=== PATIENT | female | born 1970 | race Caucasian/White ===

== ENCOUNTER 2019-09-13 10:34 | Emergency (ER) | payer BC ==
[2019-09-13] MEDS ORDERED: FLEET ENEMA ADULT PR ONE (11:24)
[2019-09-13] MEDS ORDERED: MAGNESIUM CITRATE 300 ML BOT ONE (11:24)
[2019-09-13] MEDS ORDERED: NA CHLORIDE 0.9% 1,000 ML ONE (11:59)
[2019-09-13] MEDS ORDERED: ONDANSETRON 4 MG/2 ML VIAL ONE (12:26)
--- NOTE | 2019-09-13 13:06 | ER ---
Nurse's Notes [facility] Name: Sri Fink Age: 48 yrs Sex: Female : 1970 Arrival Date: 09/13/2019 Time: 10:36 Bed 7 Private MD: Diagnosis: Fecal impaction;Dehydration Presentation: 09/13 10:53 Presenting complaint: Patient states: has been constipated for 3-4 days, feels like iw stool is in rectum, painful to sit, also BP was high this morning but then felt like she was gonna pass out and had a BP reading of 115/58, pt has hx of uterine and ovarian cancer, currently on chemo. Transition of care: patient was not received from another setting of care. Onset of symptoms was September 09, 2019. Risk Assessment: Do you want to hurt yourself or someone else? Patient reports no desire to harm self or others. Initial Sepsis Screen: Does the patient meet any 2 criteria? No. Patient's initial sepsis screen is negative. Does the patient have a suspected source of infection? No. Patient's initial sepsis screen is negative. Care prior to arrival: None. 10:53 Method Of Arrival: Wheelchair iw 10:53 Acuity: OCTAVIO 3 iw Triage Assessment: 11:00 General: Appears in no apparent distress. comfortable, obese, Behavior is cooperative, bp appropriate for age, anxious. Pain: Complains of pain in abdomen. EENT: No deficits noted. Neuro: No deficits noted. Cardiovascular: Rhythm is sinus rhythm. Respiratory: No deficits noted. GI: Reports constipation, cramping. : No signs and/or symptoms were reported regarding the genitourinary system. Derm: No signs and/or symptoms reported regarding the dermatologic system. Musculoskeletal: No deficits noted. 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 - Coronavirus screen:: The patient has NOT traveled to [place] in the past 14 days. Proceed with normal triage process as indicated. - Family history:: not pertinent. - Social history:: Smoking status: Patient denies any tobacco usage or history of. - Hospitalizations: : No recent hospitalization is reported. - Ebola Screening: : Patient negative for fever greater than or equal to 101.5 degrees Fahrenheit, and additional compatible Ebola Virus Disease symptoms Patient denies exposure to infectious person Patient denies travel to an Ebola-affected area in the 21 days before illness onset No symptoms or risks identified at this time. Screenin:00 Abuse screen: Denies threats or abuse. Denies injuries from another. Nutritional bp screening: No deficits noted. Tuberculosis screening: No symptoms or risk factors identified. Fall Risk None identified. Assessment: 11:00 Reassessment: SEE TRIAGE NOTE. bp 12:00 Reassessment: PT ON B/S COMMODE, UNSUCCESSFUL WITH FLEET ENEMA. MD INFORMED. bp 12:24 Reassessment: VO Zofran 4mg IV by Dr. Zaman. Med administered. ca1 12:32 Reassessment: MD AT B/S FOR DISIMPACTION. bp 13:37 Reassessment: D/C ON HOLD, PT OUT OF BED TO B/S COMMODE. bp 14:02 Reassessment: D/C CANCELLED FOR NOW BY . CT ABD/PELVIS PENDING. bp 15:28 Reassessment: PT UP TO B/S COMMODE, UOP TO LAB. bp Vital Signs: 11:02 Resp 16; Temp 98.4(TE); Pulse Ox 98% on R/A; Weight 91.17 kg; Height 5 ft. 10 in. iw (177.80 cm); Pain 8/10; 12:00 BP 94 / 46; Pulse 71; Resp 16; Pulse Ox 97% ; bp 13:00 BP 130 / 51; Pulse 71; Resp 17; Pulse Ox 98% ; bp 14:02 BP 132 / 41; Pulse 78; Resp 16; Pulse Ox 99% ; bp 15:28 BP 125 / 50; Pulse 77; Resp 16; Pulse Ox 98% ; bp 16:34 BP 122 / 52; Pulse 78; Resp 18; Temp 98.1; Pulse Ox 100% on R/A; ph 11:02 Body Mass Index 28.84 (91.17 kg, 177.80 cm) ED Course: 10:36 Patient arrived in ED. fj1 10:42 Yaakov Riley, RN is Primary Nurse. bp 10:44 Estevan Zaman MD is Attending Physician. rn 10:56 Triage completed. iw 11:00 Patient has correct armband on for positive identification. Bed in low position. Call bp light in reach. Side rails up X2. Adult w/ patient. 11:05 Arm band placed on. iw 12:00 Inserted saline lock: 22 gauge in left antecubital area, using aseptic technique. bp 14:58 CT completed. Patient tolerated procedure well. Patient moved back from CT. mw3 15:03 CT Abd/Pelvis - IV Contrast Only In Process Unspecified. EDMS 16:31 No provider procedures requiring assistance completed. IV discontinued, intact, ph bleeding controlled, No redness/swelling at site. Pressure dressing applied. Administered Medications: 11:15 Drug: Fleet Enema 133 ml Route: AK; bp 13:12 Follow up: Response: No adverse reaction bp 11:15 Drug: Magnesium Citrate Liquid 300 ml Route: PO; bp 13:12 Follow up: Response: No adverse reaction bp 12:00 Drug: NS 0.9% 1000 ml Route: IV; Rate: 1000 ml; Site: left antecubital; bp 16:33 Follow up: Response: No adverse reaction; IV Status: Completed infusion; IV Intake: ph 1000ml 12:24 Drug: Zofran 4 mg Route: IVP; Site: right antecubital; ca1 13:12 Follow up: Response: Nausea is decreased bp Intake: 16:33 IV: 1000ml; Total: 1000ml. ph Outcome: 13:05 Discharge ordered by . rn 16:32 Discharged to home ambulatory, with significant other. ph 16:32 Condition: improved 16:32 Discharge instructions given to patient, significant other, Instructed on discharge instructions, follow up and referral plans. Demonstrated understanding of instructions, follow-up care. 16:34 Patient left the ED. ph Signatures: Dispatcher [employer] EDMS Guillermina Mcgill RN RN Estevan Zaman MD MD rn Hall, Patricia, RN RN ph Yaakov Riley RN RN bp Maggie Bellamy mw3 Barb Malagon RN RN ca1 Kaiser Ledezma fj1 Corrections: (The following items were deleted from the chart) 12:24 12:24 Reassessment: AILYN Puri 4mg IV by Dr. Zaman ca1 ca1
--- NOTE | 2019-09-13 13:07 | EDPHYS ---
Physician Documentation [facility] Name: Sri Fink Age: 48 yrs Sex: Female : 1970 Arrival Date: 09/13/2019 Time: 10:36 Bed 7 Private MD: ED Physician Estevan Zaman HPI: 09/13 10:56 This 48 yrs old Female presents to ER via Unassigned with complaints of rn Constipation. 10:56 The patient presents to the emergency department with constipation. Onset: The rn symptoms/episode began/occurred 3 day(s) ago. Possible causes: chemotherapy, dehydration. The symptoms are aggravated by nothing. The symptoms are alleviated by nothing. Severity of symptoms: At their worst the symptoms were moderate in the emergency department the symptoms are unchanged. The patient has experienced similar episodes in the past. Reports undergoing chemotherapy, has had episodes of constipation in past, gets better with magnesium citrate, reports feels stool in rectum and wants to come out but doesn't have the strength to push it out. Reports pain with straining, and strained so hard felt lightheaded, no syncope. No fever/vomiting/abd pain/distension. . 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 - Coronavirus screen:: The patient has NOT traveled to [place] in the past 14 days. Proceed with normal triage process as indicated. - Family history:: not pertinent. - Social history:: Smoking status: Patient denies any tobacco usage or history of. - Hospitalizations: : No recent hospitalization is reported. - Ebola Screening: : Patient negative for fever greater than or equal to 101.5 degrees Fahrenheit, and additional compatible Ebola Virus Disease symptoms Patient denies exposure to infectious person Patient denies travel to an Ebola-affected area in the 21 days before illness onset No symptoms or risks identified at this time. ROS: 10:56 Constitutional: Negative for fever, chills, and weight loss, Eyes: Negative for injury, rn pain, redness, and discharge, Neck: Negative for injury, pain, and swelling, Cardiovascular: Negative for chest pain, palpitations, and edema, Respiratory: Negative for shortness of breath, cough, wheezing, and pleuritic chest pain, Abdomen/GI: Negative for abdominal pain, nausea, vomiting, diarrhea Back: Negative for injury and pain, MS/Extremity: Negative for injury and deformity, Skin: Negative for injury, rash, and discoloration, Neuro: Negative for headache, weakness, numbness, tingling, and seizure. Exam: 10:56 Constitutional: This is a well developed, well nourished patient who is awake, alert, rn and in no acute distress. ENT: dry MM Cardiovascular: Regular rate and rhythm. No pulse deficits. Respiratory: No increased work of breathing, no retractions or nasal flaring. Abdomen/GI: soft, non-tender, non-distended Skin: Warm, dry MS/ Extremity: Pulses equal, no cyanosis. Neurovascular intact. Full, normal range of motion. Equal circumference. Neuro: Awake and alert, GCS 15, oriented to person, place, time, and situation. Cranial nerves II-XII grossly intact. Motor strength 5/5 in all extremities. Sensory grossly intact. Cerebellar exam normal. Normal gait. Vital Signs: 11:02 Resp 16; Temp 98.4(TE); Pulse Ox 98% on R/A; Weight 91.17 kg; Height 5 ft. 10 in. iw (177.80 cm); Pain 8/10; 12:00 BP 94 / 46; Pulse 71; Resp 16; Pulse Ox 97% ; bp 13:00 BP 130 / 51; Pulse 71; Resp 17; Pulse Ox 98% ; bp 14:02 BP 132 / 41; Pulse 78; Resp 16; Pulse Ox 99% ; bp 15:28 BP 125 / 50; Pulse 77; Resp 16; Pulse Ox 98% ; bp 16:34 BP 122 / 52; Pulse 78; Resp 18; Temp 98.1; Pulse Ox 100% on R/A; ph 11:02 Body Mass Index 28.84 (91.17 kg, 177.80 cm) Procedures: 12:37 Fecal disimpaction: digital disimpaction was performed, with a large amount of stool rn expressed. The patient tolerated the intervention well, Feels much better after disimpaction, no longer feels rectal or pelvic pressure. . MDM: 10:44 Patient medically screened. rn 13:03 Differential diagnosis: fecal impaction, constipation, dehydration. Data reviewed: rn vital signs, nurses notes, and as a result, I will discharge patient. Counseling: I had a detailed discussion with the patient and/or guardian regarding: the historical points, exam findings, and any diagnostic results supporting the discharge/admit diagnosis, the need for outpatient follow up, to return to the emergency department if symptoms worsen or persist or if there are any questions or concerns that arise at home. Response to treatment: the patient's symptoms have markedly improved after treatment, and as a result, I will discharge patient. Special discussion: I discussed with the patient/guardian in detail that at this point there is no indication for admission to the hospital. It is understood, however, that if the symptoms persist or worsen the patient needs to return immediately for re-evaluation. ED course: fecal impaction relieved manually, feels much better, recommend fluids and miralax until regular. Return precautions given and understood. . 15:45 ED course: Pt feels much better, no acute findings on CT, no evidence of obstruction, rn fluid may be magnesium citrate, elevated WBC secondary to bone marrow stimulant injections that she has been getting. . 09/13 13:40 Order name: CBC with Diff; Complete Time: 15:13 rn 09/13 13:40 Order name: Basic Metabolic Panel; Complete Time: 15:13 rn 09/13 14:16 Order name: CBC Smear Scan; Complete Time: 15:13 EDMS 09/13 15:13 Order name: Urine Microscopic Only rn 09/13 15:13 Order name: Urine Culture rn 09/13 15:39 Order name: Urine Dipstick--Ancillary (enter results) ms 09/13 10:54 Order name: IV Start; Complete Time: 12:32 rn 09/13 13:40 Order name: CT Abd/Pelvis - IV Contrast Only; Complete Time: 15:44 rn 09/13 15:13 Order name: Urine Dipstick-Ancillary (obtain specimen); Complete Time: 15:39 rn 02/23 15:39 Order name: Urine --Ancillary (enter results) ms Administered Medications: 11:15 Drug: Fleet Enema 133 ml Route: AR; bp 13:12 Follow up: Response: No adverse reaction bp 11:15 Drug: Magnesium Citrate Liquid 300 ml Route: PO; bp 13:12 Follow up: Response: No adverse reaction bp 12:00 Drug: NS 0.9% 1000 ml Route: IV; Rate: 1000 ml; Site: left antecubital; bp 16:33 Follow up: Response: No adverse reaction; IV Status: Completed infusion; IV Intake: ph 1000ml 12:24 Drug: Zofran 4 mg Route: IVP; Site: right antecubital; ca1 13:12 Follow up: Response: Nausea is decreased bp Disposition: 09/13/19 13:05 Discharged to Home. Impression: Fecal impaction, Dehydration. - Condition is Stable. - Discharge Instructions: Dehydration, Adult, Fecal Impaction. - Medication Reconciliation Form, Thank You Letter, Antibiotic Education, Prescription Opioid Use form. - Follow up: Private Physician; When: As needed; Reason: Recheck today's complaints, Re-evaluation by your physician. - Problem is new. - Symptoms have improved. Signatures: Dispatcher [employer] EDGuillermina Carias RN RN Estevan Zaman MD MD rn Hall, Patricia, RN RN Yaakov Riley RN RN Barb Malagon RN RN ca1 Corrections: (The following items were deleted from the chart) 16:34 13:05 09/13/2019 13:05 Discharged to Home. Impression: Fecal impaction; Dehydration. ph Condition is Stable. Forms are Medication Reconciliation Form, Thank You Letter, Antibiotic Education, Prescription Opioid Use. Follow up: Private Physician; When: As needed; Reason: Recheck today's complaints, Re-evaluation by your physician. Problem is new. Symptoms have improved. rn
[2019-09-13 14:10] LABS: Basophils % 0.5 % (0-1.3); Hematocrit 38.1 % (36.0-45.0); Lymphocytes % 2.9 % (15.3-44.8); RBC Red Blood Cell Count 4.41 M/uL (3.86-4.86)
[2019-09-13 14:22] LABS: Potassium 3.6 mmol/L (3.5-5.1)
[2019-09-13 15:07] LABS: Blood Morphology Comment NOTED (NOT SEEN); Platelet Estimate ADEQ; Urine White Blood Cell Casts OK
[2019-09-13 15:08] LABS: Poikilocytosis 1+
--- NOTE | 2019-09-13 15:22 | RAD REPORT ---
EXAM DESCRIPTION: CT - Abdomen Pelvis W Contrast - 09/13/2019 2:58 pm CLINICAL HISTORY: Abdominal pain COMPARISON: none. TECHNIQUE: Computed axial tomography of the abdomen pelvis was obtained. 100 cc Isovue-300 was admin istered intravenously. Oral contrast was not requested which limits evaluation of bowel. All CT scans are performed using dose optimization technique as appropriate and may include automated exposure control or mA/KV adjustment according to patient size. FINDINGS: The liver, spleen, pancreas, adrenal and kidneys appear unremarkable. Cholecystectomy. Small umbilical hernia contains fat Fluid throughout nondilated small and large bowel. There is no evidence of diverticulitis. A normal appendix paragraphs hysterectomy IMPRESSION: Fluid throughout nondilated small and large bowel may indicate an enteritis.
[2019-09-13 15:52] LABS: Urine Bacteria <20 /HPF (<20); Urine Culture Reflex Order NOT NEEDED; Urine RBC <5 /HPF (NONE SEEN)
[2019-09-13 15:54] LABS: Urine Blood TRACE (NEG); Urine Glucose NEGATIVE (NEG); Urine Protein NEGATIVE (NEG); Urine Specific Gravity 1.015 (1.005-1.030); Urine pH 6.5 (5.0-7.0)
[2019-09-13 17:04] VITALS: BP 122/52; TEMP 98.1; O2SAT 100
== END 2019-09-13 16:34 | disposition home or self-care (01) ==
LOC: ER 10:34
DX: E86.0 Dehydration (principal); C56.9 Malignant neoplasm of unspecified ovary; C55 Malignant neoplasm of uterus, part unspecified; Z88.6 Allergy status to analgesic agent
CPT/HCPCS: 96361; 87088; 85025; 87086; 80048; 36415; 81025; 87077; 87186; 74177; 96374; 99285; Q9967; J7030; J2405; 81003; 81015

== ENCOUNTER 2023-01-29 11:34 | Emergency (ER) | payer BC ==
--- OUTSIDE RECORDS SUMMARY | 2023-01-29 11:43 | XMS REPORT | Continuity of Care Document ---
:1970 Author Organization [facility] t Address [address] [facility] [address] [place] [id number] Care Team Providers Name Role Phone Logan Rosen Primary Care Physician Logan Rosen Attending Clinician Unavailable LJ JENKINS Attending Clinician Unavailable Thelma Paz MD Attending Clinician Laisha Knapp MA Attending Clinician Unavailable Dalila MEJIA, Sabino Attending Clinician George MEJIA, Cesar Myles Attending Clinician [phone] Nithya Yu Attending Clinician Unavailable Didier Ring MA Attending Clinician Unavailable Terry Serra MD Attending Clinician Adin MEJIA, Nish Fowler Attending Clinician ADAM HARRELL Attending Clinician Unavailable Vashti FRIAS, Shannon Lau Attending Clinician Unavailable Only, Ang Db Test Attending Clinician Unavailable Scott Lantigua Attending Clinician SCOTT BRANCH Attending Clinician Unavailable BROOKLYN DO Attending Clinician Unavailable Nuria Matta MA Attending Clinician Unavailable SHAYY BANERJEE Attending Clinician Unavailable SIMON BILLINGS Attending Clinician Unavailable TWIN PASCAL Attending Clinician Unavailable Nish Oakley Attending Clinician Unavailable LUIS ARMANDO EDDY Attending Clinician Unavailable MD LUIS ARMANDO EDDY Attending Clinician Unavailable Physician, No Primary or Family Admitting Clinician Unavaila LUIS ARMANDO Solorzano Admitting Clinician Unavailable MD LUIS ARMANDO EDDY Admitting Clinician Unavailable DALILA, SABINO Admitting Clinician Unavailable Payers Payer Name Policy Type Policy Number Effective Date Expiration Date S ource [place] [id number] 2019 00:00:00 OUT OF STATE Problems Condition Condition Condition Status Onset Resolution Last Treating Co mments Source Name Details Category Date Date Treatment Clinician Date Glo' Glo' Disease Active U T s disease s disease 12-12 Heal 00:00: 00 Uncomplica Uncomplica Disease Active 2020-07 M ethodi kaitlyn asthma kaitlyn asthma 0 st 00:00: Hospita 00 l 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 04-18 Heal th 00:00: 00 Malignant Malignant Disease Active UT neoplasm neoplasm 04-18 Health of ovary of ovary 00:00: 00 Primary Primary Disease Active Methodi malignant malignant 04-18 st neoplasm neoplasm 00:00: Hospit a of ovary of ovary 00 l Dyspnea on Dyspnea on Disease Active M ethodi exertion exertion 02-07 st 00:00: Hospita 00 l Lung Lung Disease Active Methodi nodules nodules 02-07 st 00:00: Hospita 00 l Atypical Atypical Disease Active Metho di face pain face pain 02-02 st 00:00: Hospita 00 l 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 Formattin g of this note might be different from the original. left maxillary sinus Peripheral Peripheral Disease Active M ethodi venous venous 15 st insufficie insufficie 00:00: Ho spita ncy ncy 00 l Postnasal Postnasal Disease Active Met hodi drip drip 02-02 st 00:00: Hospita 00 l Restless Restless Disease Active Metho di legs legs 02-02 st 00:00: Hospita 00 l Routine Routine Disease Active Methodi general general 7 medical medical 00:00: Hospita examinatio examinatio 00 l n at a n at a [facility] facility Status Status Disease Active 2019-07 Methodi post post 2 st radiation radiation 00:00: Hosp mo therapy therapy 00 l Endometria Endometria Disease Active M ethodi l cancer l cancer 08-04 st 00:00: Hospita 00 l Varicose Varicose Disease Active 2018-07 Metho di veins of veins of 2 lower lower 00:00: Hospita extremity extremity 00 l Hypertroph Hypertroph Disease Active 2017-07 M ethodi y of nasal y of nasal 0 turbinates turbinates 00:00: Ho spita 00 l Deviated Deviated Disease Active 2011-07 Metho di nasal nasal 0 septum septum 00:00: Hospita 00 l ETD ETD Disease Active 2010-07 Methodi (eustachia (eustachia 08-20 st n tube n tube 00:00: Hospita dysfunctio dysfunctio 00 l n) n) Food Food Disease Active 2010-07 Methodi allergy allergy 08-20 st 00:00: Hospita 00 l Allergic Allergic Disease Active Metho di rhinitis rhinitis 02-23 00:00: Hospita 00 l Gastritis Gastritis Disease Active Met hodi 12-13 st 00:00: Hospita 00 l Disorder Disorder Disease Active Overview: Me thodi of of 08-[address] respirator respirator 00:00: g of this Hospita y system y system 00 note l might be different from the original. Formattin g of this note might be different from the original. 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 Allergies, Adverse Reactions, Alerts Allergy Allergy Status Severity Reaction(s) Onset Inactive Treating Comm ents Source Name Type Date Date Clinician Acetamin Propensi Active Unknown 2018-07 Nausea/vo UT ophen-Co ty to 09-13 miting, Health deine adverse 00:00: dizzy reaction 00 s Acetamin Propensi Active GI 2018-07 Nausea/vo Met hodi ophen-Co ty to Intolerance 09-13 miting, st deine adverse 00:00: dizzy Hospita reaction 00 l s to drug FLUTICAS DRUG Active High Unknown-Cmnt Un anusha ONE 03-12 ity of PROPION- 00:00: [place] SALMETER 00 Medical OL Branch Fluticas Propensi Active Unknown - Contricts Univers one ty to See comments 03-12 throat, ity of Propion- adverse 00:00: Joint [place] Salmeter reaction 00 pain Medica l ol s to Branch drug Aspirin Allergy Active Nausea Only Patient UT to 09-03 says it Health substanc 00:00: upsets e 00 her stomachPa tient says it upsets her stomach Aspirin Propensi Active GI Patient Method i ty to Intolerance 09-[address] adverse 00:00: upsets Hospita reaction 00 her l s to stomach drug ASPIRIN DRUG Active NAUSEA ONLY Univ ers INGREDI 09-03 ity of 00:00: [place] 00 Medical Branch Aspirin Propensi Active Nausea Only Un anusha ty to 09-03 ity of adverse 00:00: [place] reaction 00 Medical s Branch Family History Family Member Diagnosis Comments Start Date Stop Date Source Natural brother Ulcers [facility] Natural father Cancer [facility] Maternal grandmother Heart disease [facility] mother Hypertension [facility] Natural mother Lung cancer [facility] Natural mother Thyroid disease [facility] Natural sister Cancer [facility] Natural sister Thyroid disease [facility] Natural sister Lung cancer [facility] Social History Social Habit Start Date Stop Date Quantity Comments Source History of tobacco Current smoker Me thodist use [facility] Gender identity [facility] Sexual orientation [facility] Exposure to 2022-12-02 2022-12-12 Not sure [facility] SARS-CoV-2 (event) 00:00:00 08:58:00 Alcohol intake 2022-11-14 2022-11-14 Ex-drinker [facility] 00:00:00 00:00:00 (finding) Hospital History of Social 2022-11-14 2022-11-[address] function 00:00:00 00:00:00 Hospital Cigarettes smoked 2022-05-16 2022-05-[address] current (pack per 00:00:00 00:00:00 Hospita l ) - Reported Cigarette 2022-05-16 2022-05-16 [facility] pack-years 00:00:00 00:00:00 Hospital Tobacco use and 2022-05-16 2022-05-16 Smokeless [facility] exposure 00:00:00 00:00:00 tobacco non-user Hospital Sex Assigned At [birth year] [facility] 00:00:00 00:00:00 Hospital Smoking Status Start Date Stop Date Source Tobacco smoking consumption [facility] unknown Ex-smoker 2022-05-16 00:00:00 2022-05-16 [facility]:00:[facility] Medications Ordered Filled Start Stop Current Ordering Indication Dosage Frequency Signature Comments Components Source Medication Medication Date Date Medication? Clinician (SIG) Name Name levothyroxi Yes 75ug QD Take 75 UT ne 5-24 mcg by Health (Synthroid, 09:12: mouth 1 Levoxyl) 75 54 (one) time MCG tablet each day. on an empty stomach levocetiriz Yes 5mg Take 1 Meth palomo ine (XYZAL) 3-29 tablet (5 st 5 MG tablet 09:18: mg total) H ospita 03 by mouth l as needed. levothyroxi Yes 75ug QD Take 1 Meth palomo ne 3-29 tablet (75 st (SYNTHROID) 09:18: mcg total) Hospita 75 mcg 03 by mouth l tablet daily. meloxicam 2023- No 15mg QD Take 1 Metho di (MOBIC) 15 3-29 11-23 tablet (15 st mg tablet 09:18: 05:59 mg total) Ho spita 03 :00 by mouth l daily. Rybelsus 3 Yes 1{tbl} QD Take 1 Met hodi mg tablet 3-[address] 00:00: mouth Hospita 00 daily. l Rybelsus 3 Yes 1{tbl} QD Take 1 UT MG tablet 3-22 tablet by Healt h 00:00: mouth 1 00 (one) time each day. naproxen 2022-1 2022- No Take by Metho di sodium 1-10 11-[address] (ALEVE 11:59: 00:00 tablets Hospita ORAL) 40 :00 for l neuropathy Qsymia 2021-07 Yes 1{capsu QD Take 1 Method i 3.75-23 mg 0-13 le} capsule by st capsule, ER 00:00: mouth Hospi ta multiphase 00 daily. l 24 hr phentermine Yes 15mg QD Take 1 Meth palomo 15 MG 7-[address] capsule 00:00: (15 mg Hospita 00 total) by l mouth daily. meloxicam 2021- No 15mg QD Take 1 Metho di (Mobic) 15 630 07-31 tablet (15 st mg tablet 00:00: 04:59 mg total) Ho spita 00 :00 by mouth l daily for 30 days. olopatadine Yes 2{spray 2 sprays. UT (Patanase) 04-18 } Health 0.6 % 10:56: solution 16 nasal spray olopatadine Yes 2{spray 2 sprays. UT (Patanase) 04-18 } Health 0.6 % 10:56: solution 16 nasal spray olopatadine Yes 2{spray 2 sprays. UT (Patanase) 04-18 } Health 0.6 % 10:56: solution 16 nasal spray Loratadine Yes UT (Claritin) 04-18 Health 10 MG 10:46: capsule levocetiriz Yes levocetiri UT ine (Xyzal) 04-18 zine 5 mg Hea lth 5 MG tablet 10:46: tablet 21 Loratadine Yes UT (Claritin) 04-18 Health 10 MG 10:46: capsule 21 levocetiriz Yes levocetiri UT ine (Xyzal) 04-18 zine 5 mg Hea lth 5 MG tablet 10:46: tablet Loratadine Yes UT (Claritin) 04-18 Health 10 MG 10:46: capsule 21 levocetiriz Yes levocetiri UT ine (Xyzal) 04-18 zine 5 mg Hea lth 5 MG tablet 10:46: tablet 21 ampicillin Yes [id number] 500mg Take 1 Cap Univers (PRINCIPEN) 4-08 by mouth ity of 500 mg 00:00: every 8 [place] capsule 00 (eight) Medical hours. Branch ampicillin 2010- Yes [id number] 500mg Take 1 Cap Univers (PRINCIPEN) 4-08 by mouth ity of 500 mg 00:00: every 8 [place] capsule 00 (eight) Medical hours. Branch SCOPOLAMINE 2006-0 Yes apply one U nivers BASE 1.5 MG 4-11 patch ity of TRANSDERMAL 00:00[place]ly [place] PT72 [place] SCOPOLAMINE 2006-0 Yes apply one U nivers BASE 1.5 MG 4-11 patch ity of TRANSDERMAL 00:00[place]ly [place] PT72 [place] Medical Branch albuterol 0 Yes Inhale. Metho di (PROAIR 8-22 st HFA) 90 00:00: Hospita mcg/actuati 00 l on inhaler ALBUTEROL 0 Yes one puff Univ ers 90 8-22 bid prn ity of MCG/ACTUATI 00:00: [place] ON INHALE Medical AERO Rattan ALBUTEROL 2005-0 Yes one puff Univ ers 90 8-22 bid prn ity of MCG/ACTUATI 00:00: [place] [facility] Immun[facility] Ordered Filled Immunization Date Status Comments [place] [facility] e Immunization Name Name SARS-COV-2 COVID-19 2021-06-05 Completed Unive rsity of PFIZER VACCINE 00:00:00 [facility] SARS-COV-2 COVID-19 2021-06-05 Completed Unive rsity of PFIZER VACCINE 00:00:00 [facility] SARS-COV-2 COVID-19 2020-10-08 Completed Unive rsity of PFIZER VACCINE 00:00:00 [facility] SARS-COV-2 COVID-19 2020-10-08 Completed Unive rsity of PFIZER VACCINE 00:00:00 [facility] SARS-COV-2 COVID-19 2020-09-17 Completed Unive rsity of PFIZER VACCINE 00:00:00 [facility] SARS-COV-2 COVID-19 2020-09-17 Completed Unive rsity of PFIZER VACCINE 00:00:00 [facility] Vital Signs Vital Name Observation Time Observation Value Comments Source Body height 2022-12-12 14:12:00 [address] [facility] Body weight 2022-12-12 14:12:[address] [facility] BMI 2022-12-12 14:12:00 43.55 kg/m2 [facility] Systolic blood 2022-11-14 16:08:00 160 mm[Hg] [facility] pressure Diastolic blood 2022-11-14 16:08:00 82 mm[Hg] [facility] pressure Heart rate 2022-11-14 16:08:00 68 /min [facility] Body weight 2022-11-14 16:08:00 102.876 kg [facility] BMI 2022-11-14 16:08:00 45.81 kg/m2 [facility] Body height 2022-07-02 17:29:00 149.9 cm [facility] Oxygen saturation in 2022-07-02 17:29:00 97 /min [facility] Arterial blood by Pulse oximetry Procedures Procedure Date / Time Performing Clinician Source Performed CT CHEST W CONTRAST 2022-08-02 20:05:44 Sabino Conner [facility] ABDOMEN W CONTRAST PELVIS W CONTRAST POC CREATININE 2022-08-02 19:24:00 Sabino Conner Ho spital ESTIMATED GFR 2022-08-02 19:24:00 Sabino Conner Ho spital [place] ARTHROCENTESIS 2022-06-12 19:00:00 Terry Serra [facility] ASPIR&/INJ SMALL JT/BURSA W/O US BRONCHIAL CHALLENGE 2022-06-11 15:59:37 Cesar Galaviz [facility] MRI UPPER EXTREMITY WO 2022-06-04 14:35:42 Terry Serra [facility] CONTRAST RIGHT CANCER ANTIGEN 125 2022-05-29 21:49:00 Sabino Conner [facility] ALLERGY EVALUATION 2022-05-29 21:45:00 Cesar Galaviz [facility] MAMMO BREAST SCREEN 2022-02-07 17:42:00 Nish Oakley [facility] TOMOSYNTHESIS BILATERAL CT SINUS 2021-04-27 15:47:09 Lj Jenkins [facility] LANDMARK/FUSION/KHALIF WO CONTR Plan of Care Planned Activity Planned Date Details Comments Source Future Scheduled 2023-01-29 Screening for [facility] Test 11:38:48 malignant neoplasm of colon (procedure) [code = 744321382] Future Scheduled 2023-01-29 [facility]ening for [facility] Test 11:38:48 malignant neoplasm of colon (procedure) [code = 554734727] Future Scheduled 2023-01-29 [facility]ening for [facility] Test 11:38:48 malignant neoplasm of colon (procedure) [code = 060914890] Future Scheduled 2023-01-29 Pneumococcal Vaccine: [facility] Hospital Test 11:38:48 Pediatrics (0 to 5 Years) and At-Risk Patients (6 to 64 Years) (1 - PCV) [code = Pneumococcal Vaccine: Pediatrics (0 to 5 Years) and At-Risk Patients (6 to 64 Years) (1 - PCV)] Future Scheduled 2023-01-29 Hepatitis C screening [facility] [place] Test 11:38:48 (procedure) [code = 601185487] Future Scheduled 2023-01-29 Screening for [facility] Test 11:38:48 malignant neoplasm of cervix (procedure) [code = 168492809] Future Scheduled 2023-01-29 Screening for [facility] Test 11:38:48 malignant neoplasm of colon (procedure) [code = 789038039] Future Scheduled 2023-01-29 Screening for [facility] Test 11:38:48 malignant neoplasm of colon (procedure) [code = 597223907] Future Scheduled 2023-01-29 SHINGLES VACCINES (1 [facility] Test 11:38:48 of 2) [code = SHINGLES VACCINES (1 of 2)] Future Scheduled 2023-01-29 COVID-19 VACCINE (4 - [facility] Hospital Test 11:38:48 Pfizer series) [code = COVID-19 VACCINE (4 - Pfizer series)] Future Scheduled 2023-01-29 BREAST CANCER [facility] Test 11:38:48 SCREENING [code = BREAST CANCER SCREENING] Future Scheduled 2023-01-29 INFLUENZA VACCINE [facility] Test 11:38:48 [code = INFLUENZA VACCINE] Encounters Start End Encounter Admission Attending Care Care Encounter Source Date/Time Date/Time Type Type Clinicians Facility Department ID 2022-12-18 Outpatient [facility] [id number] [place] 11:22:00 [id number] [facility] 2022-12-12 Outpatient [facility] [id number] [place] 08:57:45 [id number] [facility] 2022-12-11 Outpatient [facility] [id number] [place] 12:11:50 [id number] [facility] 2022-01-11 Outpatient Jessika, STLMLC STLMLC [id number] Common 08:00:01 [facility] 2021-12-20 Outpatient STLMLC STLM [id number] Common 08:17:01 [facility] 2021-09-15 Outpatient STLMLC STLC [id number] Common 09:52:04 [facility] 2021-04-18 Outpatient CITARDI, [facility] [id number] [place] 11:34:28 [facility] 2021-04-18 Outpatient CITARDI, [facility] [id number] [place] 11:29:08 [facility] 2023-05-06 2023-05-06 Outpatient CITARDI, [facility] [id number] [place] 09:00:00 09:00:00 [facility] 2023-04-30 2023-04-30 Outpatient CITARDI, [facility] [id number] [place] 09:00:00 09:00:00 [facility] 2023-04-24 2023-04-24 Outpatient CITARDI, [facility] [id number] [place] 07:00:00 07:00:00 [facility] 2022-12-14 2022-12-14 Orders Brandi 1.2.840.1 [id number] [facility] 00:00:00 00:00:00 Only Thelma 37613.1.[address] 3.430.2.7 Hospit a .3.611367 l .8 2022-12-12 2022-12-12 Office SANDHYA Jenkins 6400 1.2.524.253 [id number] [place] 09:30:00 09:48:24 Visit Lj KNIGHTSONNY MAHER 350.1.13.58 Health 9.2.7.2.686 [id number] 2022-12-11 2022-12-11 Suzi Paz 1.2.840.1 [id number] Methodi 00:00:00 00:00:[address] 3.430.2.7 Hospit a .3.947504 l .8 2022-12-11 2022-12-11 Telephone Ra, 1.2.840.1 [id number] Methodi 00:00:00 00:00:[address] 3.430.2.7 Hospit a .3.536748 l .8 2022-11-15 2022-11-15 Telephone Sharath Conneruj 1.2.840.1 [id number] Methodi 00:00:00 00:00:[address] 3.430.2.7 Hospit a .3.448934 l .8 2022-11-14 2022-11-14 Office Sharath Conneruj 1.2.840.1 [id number] Methodi 11:15:00 11:48:[address] 3.430.2.7 Hospit a .3.548568 l .8 2022-11-14 2022-11-14 Outpatient SHARATH CONNERUJ [facility] [id number] [place] 00:00:00 00:00:[address] 2022-11-14 2022-11-14 Travel 1.2.840.1 1.2.622.714 [id number] Methodi 00:00:00 00:00:[address] 3.430.2.7 0.2.7.3.698 Ho spita .3.038144 084.8 l .8 2022-10-17 2022-10-17 Telemedici George, 1.2.840.1 [id number] Methodi 09:40:00 09:41:16 ne Cesar 29345.1.[address] [place] 3.430.2.7 Hospit a .3.004776 l .8 2022-10-17 2022-10-17 Outpatient [facility] [id number] [place] 00:00:00 00:00:[address] CESAR [address] 2022-09-13 2022-09-13 Telephone Gigi, 1.2.840.1 [id number] [id number] Methodi 00:00:00 00:00:[address] 3.430.2.7 Hospit a .3.846538 l .8 2022-08-02 2022-08-02 [facility] 1.2.840.1 [id number] Methodi 12:43:49 23:59:[address] 3.430.2.7 Hospit a .3.072158 l .8 2022-08-02 2022-08-02 Outpatient [facility] [id number] [place] 00:00:00 00:00:[address] 2022-08-02 2022-08-02 Telephone Jhonathan, 1.2.840.1 [id number] Methodi 00:00:00 00:00:[address] 3.430.2.7 Hospit a .3.775783 l .8 2022-08-02 2022-08-02 Travel 1.2.840.1 1.2.661.618 [id number] [id number] Methodi 00:00:00 00:00:[address] 3.430.2.7 0.2.7.3.698 Ho spita .3.433052 084.8 l .8 2022-07-25 2022-07-25 [facility], 1.2.840.1 [id number] Methodi 11:30:00 23:59:00 Encounter Cesar 50181.1.[address] [place] 3.430.2.7 Hospit a .3.667868 l .8 2022-07-25 2022-07-25 Outpatient GEORGE [facility] [id number] [place] 00:00:00 00:00:00 CESAR [address] 2022-07-25 2022-07-25 Travel 1.2.840.1 1.2.356.056 [id number] Methodi 00:00:00 00:00:[address] 3.430.2.7 0.2.7.3.698 Ho spita .3.723354 084.8 l .8 2022-07-10 2022-07-10 Office Terry Serra 1.2.840.1 [id number] Methodi 15:20:00 15:55:07 Visit Romana 90535.1.[address] 3.430.2.7 Hospit a .3.440784 l .8 2022-07-10 2022-07-10 Outpatient TERRY SERRA [facility] [id number] [place] 00:00:00 00:00:[address] 2022-07-10 2022-07-10 Travel 1.2.840.1 1.2.597.818 [id number] Methodi 00:00:00 00:00:[address] 3.430.2.7 0.2.7.3.698 Ho spita .3.179501 084.8 l .8 2022-07-06 2022-07-06 Telephone Gigi, 1.2.840.1 [id number] [id number] Methodi 00:00:00 00:00:[address] 3.430.2.7 Hospit a .3.786591 l .8 2022-07-02 2022-07-02 Office George, 1.2.840.1 [id number] 21 [id number] Methodi 11:40:00 12:00:00 Visit Cesar 73523.1.[address] [place] 3.430.2.7 Hospit a .3.851805 l .8 2022-07-02 2022-07-02 [facility] [id number] [place] 00:00:00 00:00:00 CESAR [address] 2022-07-02 2022-07-02 Travel 1.2.840.1 1.2.604.961 [id number] Methodi 00:00:00 00:00:[address] 3.430.2.7 0.2.7.3.698 spita .3.219649 084.8 l .8 2022-06-27 2022-06-27 Telephone Gigi, 1.2.840.1 [id number] Methodi 00:00:00 00:00:[address] 3.430.2.7 Hospit a .3.348854 l .8 2022-06-12 2022-06-12 Office Terry Serra 1.2.840.1 [id number] Methodi 13:00:00 13:44:[address]876.1.[address] 3.430.2.7 Hospit a .3.238144 l .8 2022-06-12 2022-06-12 Outpatient TERRY SERRA [facility] [id number] [place] 00:00:00 00:00:[address] 2022-06-11 2022-06-11 [facility].2.840.1 [id number] Methodi 09:54:59 23:59:00 Encounter Cesar 94152.1.[address] [place] 3.430.2.7 Hospit a .3.489601 l .8 2022-06-11 2022-06-11 [facility] [id number] [place] 00:00:00 00:00:00 CESAR [address] 2022-06-11 2022-06-11 Travel 1.2.840.1 1.2.990.627 [id number] [id number] Methodi 00:00:00 00:00:[address] 3.430.2.7 0.2.7.3.698 Ho spita .3.032125 084.8 l .8 2022-06-04 2022-06-04 Outpatient TERRY SERRA [facility] [id number] [place] 00:00:00 00:00:[address] 2022-05-31 2022-05-31 Office Terry Serra 1.2.840.1 [id number] Methodi 11:40:00 14:26:[address] 94806.1.[address] 3.430.2.7 Hospit a .3.068817 l .8 2022-05-31 2022-05-31 Outpatient TERRY SERRA [facility] [id number] [place] 00:00:00 00:00:[address] 2022-05-31 2022-05-31 Orders Sabino Conner 1.2.840.1 [id number] Methodi 00:00:00 00:00:[address] 3.430.2.7 Hospit a .3.396185 l .8 2022-05-31 2022-05-31 Travel 1.2.840.1 1.2.805.656 0760 [id number] Methodi 00:00:00 00:00:[address] 3.430.2.7 0.2.7.3.698 Ho spita .3.478532 084.8 l .8 2022-05-29 2022-05-29 Orders George, 1.2.840.1 [id number] Methodi 00:00:00 00:00:00 Only Cesar 89903.1.[address] [place] 3.430.2.7 Hospit a .3.008470 l .8 2022-05-29 2022-05-29 Telephone Sabino Conner 1.2.840.1 [id number] 2 [id number] Methodi 00:00:00 00:00:[address] 3.430.2.7 Hospit a .3.641496 l .8 2022-05-24 2022-05-24 Travel 1.2.840.1 1.2.212.149 4511 [id number] Methodi 00:00:00 00:00:[address] 3.430.2.7 0.2.7.3.698 Ho spita .3.736977 084.8 l .8 2022-05-16 2022-05-16 [facility].2.840.1 [id number] [id number] Methodi 10:45:00 10:55:[address] 3.430.2.7 Hospit a .3.837631 l .8 2022-05-16 2022-05-16 [facility] [id number] [place] 00:00:00 00:00:[address] 2022-05-16 2022-05-16 Travel 1.2.840.1 1.2.044.315 7515 [id number] Methodi 00:00:00 00:00:[address] 3.430.2.7 0.2.7.3.698 Ho spita .3.234864 084.8 l .8 2022-04-03 2022-04-03 Office [facility] 1.2.840.1 [id number] Methodi 11:00:00 11:20:00 Visit Cesar [address]33.1.[address] [place] 3.430.2.7 Hospit a .3.725216 l .8 2022-04-03 2022-04-03 Outpatient [facility] [id number] [place] 00:00:00 00:00:[address] [facility] [address] 2022-04-03 2022-04-03 Travel 1.2.840.1 1.2.976.323 [id number] [id number] Methodi 00:00:00 00:00:[address] 3.430.2.7 0.2.7.3.698 Ho spita .3.152639 084.8 l .8 2022-02-13 2022-02-13 [facility] Adin, 1.2.840.1 [id number] Methodi 09:05:33 23:59:00 Encounter Beilan E 57694.1.1 947 s t 3.430.2.7 Hospit a .3.195107 l .8 2022-02-13 2022-02-13 [facility] Adin, 1.2.840.1 [id number] Methodi 09:01:44 09:04:00 Encounter Beilan E 83025.1.1 318 s t 3.430.2.7 Hospit a .3.705770 l .8 2022-02-13 2022-02-13 Outpatient ADIN [facility] [id number] [place] 00:00:00 00:00:00 BEILAN [address] 2022-02-13 2022-02-13 Outpatient ADIN [facility] [id number] [place] 00:00:00 00:00:00 BEILAN [address] 2022-02-13 2022-02-13 [facility], 1.2.840.1 [id number] Methodi 00:00:00 00:00:00 Only Beilan E [address]902.1.[address] 3.430.2.7 Hospit a .3.366668 l .8 2022-02-07 2022-02-07 Outpatient ADIN [facility] [id number] [place] 00:00:00 00:00:00 BEILAN [address] 2022-01-18 2022-01-18 Outpatient JULIO CESAR, [facility] [id number] [place] 00:00:00 00:00:00 DAAM [address] 2022-01-18 2022-01-18 Outpatient TERRY SERRA [facility] [id number] [place] 00:00:00 00:00:[address] 2021-11-13 2021-11-13 Outpatient DALILA, SABINO [facility] [id number] [place] 00:00:00 00:00:[address] 2021-08-04 2021-08-04 Outpatient SABINO CONNER [facility] [id number] [place] 00:00:00 00:00:[address] 2021-07-26 2021-07-26 Outpatient SABINO CONNER [facility] [id number] [place] 00:00:00 00:00:[address] 2021-07-15 2021-07-15 Letter KASSY [place] 1.2.840.114 [id number] [facility] 00:00:00 00:00:00 (Out) Shannon Lau RYLIE 350.1.13.10 it [facility] 4.2.7.2.686 James as [id number] [address] 2021-07-13 2021-07-13 Laboratory Only, Ang Db Test [facility] 1.2.8 40.114 [id number] [facility] 20:30:00 20:45:00 [facility] 350.1.13.10 [facility] 4.2.7.2.686 James as REESE?BLEA [id number] [address] MEDICAL OFFICE BUILDING 2021-07-13 2021-07-13 [facility] [id number] Univers 20:30:00 20:25:08 [facility] 2021-06-05 2021-06-05 [facility] [id number] Univers 16:00:00 15:43:55 [place] [facility] 2021-05-16 2021-05-16 Telephone SANDHYA Jenkins 6400 1.2.840.114 [id number] [place] 00:00:00 00:00:[address] 350.1.13.58 Health 9.2.7.2.686 [id number] 3 2021-05-15 2021-05-15 Telephone Nuria Matta UTP 6400 1.2.84 0.114 [id number] [place] 00:00:00 00:00:[address] 350.1.13.58 Health 9.2.7.2.686 [id number] 3 2021-05-09 2021-05-09 Outpatient GEORGE [facility] [id number] [place] 00:00:00 00:00:00 CESAR [address] 2021-05-09 2021-05-09 Outpatient GEORGE, [facility] [id number] [place] 00:00:00 00:00:00 CESAR [address] 2021-04-21 2021-04-21 EXT [facility] OP Cit[place], EXT MSRDP 1.2.840.114 [id number] [place] 00:00:00 00:00:00 Lj LOCATION 350.1.13.58 H ealth 9.2.7.2.686 [id number] 0 2021-04-21 2021-04-21 EXT [facility] OP Citardi, EXT MSRDP 1.2.840.114 [id number] [place] 00:00:00 00:00:00 Lj LOCATION 350.1.13.58 H ealth 9.2.7.2.686 [id number] 0 2021-04-19 2021-04-19 Outpatient DALILA, SABINO [facility] [id number] [place] 00:00:00 00:00:[address] 2021-04-19 2021-04-19 Outpatient SHAYY BANERJEE [facility] [id number] [place] 00:00:00 00:00:[address] 2021-04-18 2021-04-18 Office SANDHYA Jenkins 6400 1.2.603.939 [id number] 10:36:19 10:51:[address] 350.1.13.58 9.2.7.2.686 [id number] 3 2021-04-18 2021-04-18 Office SANDHYA Jenkins 6400 1.2.447.309 [id number] [place] 10:36:19 10:51:[address] 350.1.13.58 Health 9.2.7.2.686 [id number] 3 2021-02-15 2021-02-15 Outpatient GEORGE, [facility] [id number] [place] 00:00:00 00:00:00 CESAR [address] 2021-02-15 2021-02-15 Outpatient GEORGE, [facility] [id number] [place] 00:00:00 00:00:00 CESAR [address] 2021-02-07 2021-02-07 Outpatient GEORGE, [facility] [id number] [place] 00:00:00 00:00:00 CESAR [address] 2021-01-31 2021-01-31 Outpatient FARACH, [facility] [id number] [place] 00:00:00 00:00:00 SIMON 835 Method i 2021-01-19 2021-01-19 Outpatient FARACH, [facility] [id number] [place] 00:00:00 00:00:00 SIMON 994 Method i 2020-12-14 2020-12-14 Outpatient DALILA, SABINO [facility] [id number] [place] 00:00:00 00:00:00 133 Method i 2020-11-29 2020-11-29 Outpatient FARACH, [facility] [id number] [place] 00:00:00 00:00:00 SIMON 939 Method i 2020-10-11 2020-10-11 Outpatient FARACH, [facility] [id number] [place] 00:00:00 00:00:00 SIMON 382 Method i 2020-10-08 2020-10-08 Outpatient Tomy [facility] [id number] [facility] 10:10:00 10:10:00 TWIN [facility] 2020-09-27 2020-09-27 Outpatient FARACH, [facility] [id number] [place] 00:00:00 00:00:00 SIMON 444 Method i 2020-09-27 2020-09-27 Outpatient FARACH, [facility] [id number] [place] 00:00:00 00:00:00 SIMON 216 Method i 2020-09-17 2020-09-17 [facility] [id number] Univers 10:30:00 10:30:00 [facility] 2020-08-172020-08-17 Outpatient DALILA, SABINO [facility] [id number] [place] 00:00:00 00:00:[address] 2020-08-17 2020-08-17 Outpatient DALILA, SABINO [facility] [id number] [place] 00:00:00 00:00:[address] 2020-06-27 2020-06-28 Outpatient FARACH, [facility] [id number] [place] 00:00:00 00:00:00 SIMON [address] 2020-06-27 2020-06-27 Outpatient FARACH, [facility] [id number] [place] 00:00:00 00:00:00 SIMON [address] 2020-05-16 2020-05-16 Outpatient LARRY Oakley, [facility] EUGENIO [id number] [facility] 12:00:00 12:00:00 Nish 93 [facility] 2020-05-13 2020-05-13 Outpatient LUIS ARMANDO EDDY [facility] [id number] [place] 00:00:00 00:00:[address] 2020-04-13 2020-04-13 Outpatient DALILA, SABINO [facility] [id number] [place] 00:00:00 00:00:[address] 2020-04-08 2020-04-08 Outpatient LARRY Oakley [facility] EUGENIO [id number] [facility] 12:00:00 12:00:00 Nish 79 [facility] 2020-04-08 2020-04-08 Outpatient FARACH, [facility] [id number] [place] 00:00:00 00:00:00 SIMON [address] 2020-03-29 2020-03-29 Outpatient FARACH, [facility] [id number] [place] 00:00:00 00:00:00 SIMON [address] 2020-03-24 2020-03-24 Outpatient LUIS ARMANDO EDDY [place] [id number] [place] 00:00:00 00:00:[address] 2020-03-22 2020-03-22 Outpatient FARACH, [facility] [id number] [place] 00:00:00 00:00:00 SIMON [address] 2020-03-21 2020-03-21 Outpatient LUIS ARMANDO EDDY [facility] [id number] [place] 00:00:00 00:00:[address] 2020-03-21 2020-03-21 Outpatient SHAYY BANERJEE [facility] [id number] [place] 00:00:00 00:00:[address] 2020-01-14 2020-01-14 Outpatient LUIS ARMANDO EDDY [place] [id number] [place] 00:00:00 00:00:[address] 2020-01-13 2020-01-13 Outpatient LUIS ARMANDO EDDY [facility] [id number] [place] 00:00:00 00:00:[address] 2019-12-28 2019-12-28 Outpatient FARACH, [facility] [id number] [place] 00:00:00 00:00:00 SIMON [address] 2019-12-28 2019-12-28 Outpatient FARACH, [facility] [id number] [place] 00:00:00 00:00:00 SIMON [address] 2019-12-28 2019-12-28 Outpatient FARACH, [facility] [id number] [place] 00:00:00 00:00:00 SIMON [address] 2019-12-28 2019-12-28 Outpatient [facility] [id number] [place] 00:00:00 00:00:[address] 2019-12-25 2019-12-26 Outpatient FARACH, [facility] [id number] 251 [place] 00:00:00 00:00:00 SIMON [address] 2019-12-25 2019-12-25 Outpatient [facility] [id number] [place] 00:00:00 00:00:[address] 2019-12-23 2019-12-24 Outpatient FARACH, [facility] [id number] [place] 00:00:00 00:00:00 SIMON [address] 2019-12-23 2019-12-23 Outpatient [facility] [id number] [place] 00:00:00 00:00:[address] 2019-12-21 2019-12-22 Outpatient FARACH, [facility] [id number] [place] 00:00:00 00:00:00 SIMON [address] 2019-12-17 2019-12-17 Outpatient [facility] [id number] [place] 00:00:00 00:00:[address] 2019-12-17 2019-12-17 Outpatient FARACH, [facility] [id number] [place] 00:00:00 00:00:00 SIMON [address] 2019-12-17 2019-12-17 Outpatient FARACH, [facility] [id number] [place] 00:00:00 00:00:00 SIMON [address] 2019-12-11 2019-12-11 Outpatient [facility] [id number] 770 [place] 00:00:00 00:00:[address] 2019-12-10 2019-12-11 Outpatient FARACH, [facility] [id number] 799 [place] 00:00:00 00:00:00 SIMON [address] 2019-12-10 2019-12-10 Outpatient [facility] [id number] [place] 00:00:00 00:00:[address] 2019-12-09 2019-12-09 Outpatient DALILA, SABINO [facility] [id number] [place] 00:00:00 00:00:[address] 2019-12-09 2019-12-09 Outpatient [facility] [id number] [place] 00:00:00 00:00:[address] 2019-12-08 2019-12-08 Outpatient [facility] [id number] [place] 00:00:00 00:00:[address] 2019-12-04 2019-12-04 Outpatient [facility] [id number] [place] 00:00:00 00:00:[address] 2019-12-03 2019-12-03 Outpatient [facility] [id number] [place] 00:00:00 00:00:[address] 2019-12-03 2019-12-03 Outpatient FARACH, [facility] [id number] 799 [place] 00:00:00 00:00:00 SIMON [address] 2019-12-02 2019-12-02 Outpatient [facility] [id number] 770 [place] 00:00:00 00:00:[address] 2019-12-01 2019-12-01 Outpatient [facility] [id number] 770 [place] 00:00:00 00:00:[address] 2019-11-30 2019-11-30 Outpatient [facility] [id number] 770 [place] 00:00:00 00:00:[address] 2019-11-27 2019-11-27 Outpatient [facility] [id number] 770 [place] 00:00:00 00:00:[address] 2019-11-26 2019-11-26 Outpatient [facility] [id number] 770 [place] 00:00:00 00:00:[address] 2019-11-26 2019-11-26 Outpatient FARACH, [facility] [id number] 799 [place] 00:00:00 00:00:00 SIMON [address] 2019-11-26 2019-11-26 Outpatient FARACH, [facility] [id number] [place] 00:00:00 00:00:00 SIMON [address] 2019-11-25 2019-11-25 Outpatient [facility] [id number] 770 [place] 00:00:00 00:00:[address] 2019-11-24 2019-11-24 Outpatient [facility] [id number] 770 [place] 00:00:00 00:00:[address] 2019-11-23 2019-11-23 Outpatient [facility] [id number] [place] 00:00:00 00:00:[address] 2019-11-20 2019-11-21 Outpatient FARACH, [facility] [id number] 798 [place] 00:00:00 00:00:00 SIMON [address] 2019-11-20 2019-11-20 Outpatient [facility] [id number] 770 [place] 00:00:00 00:00:[address] 2019-11-19 2019-11-20 Outpatient FARACH, [facility] [id number] 799 [place] 00:00:00 00:00:00 SIMON [address] 2019-11-19 2019-11-19 Outpatient [facility] [id number] [place] 00:00:00 00:00:[address] 2019-11-19 2019-11-19 Outpatient [facility] [id number] [place] 00:00:00 00:00:[address] 2019-11-18 2019-11-18 Outpatient [facility] [id number] 770 [place] 00:00:00 00:00:[address] 2019-11-17 2019-11-18 Outpatient FARACH, [facility] [id number] [place] 00:00:00 00:00:00 SIMON [address] 2019-11-17 2019-11-17 Outpatient [facility] [id number] 770 [place] 00:00:00 00:00:[address] 2019-11-16 2019-11-16 Outpatient FARACH, [facility] [id number] 770 [place] 00:00:00 00:00:00 SIMON [address] 2019-11-06 2019-11-07 Outpatient FARACH, [facility] [id number] 469 [place] 00:00:00 00:00:00 SIMON [address] 2019-11-06 2019-11-06 Outpatient FARACH, [facility] [id number] 468 [place] 00:00:00 00:00:00 SIMON [address] 2019-10-29 2019-10-29 Outpatient FARACH, [facility] [id number] 237 [place] 00:00:00 00:00:00 SIMON [address] 2019-10-29 2019-10-29 Outpatient FARACH, [facility] [id number] 237 [place] 00:00:00 00:00:00 SIMON [address] 2019-09-16 2019-09-16 Outpatient DALILA, SABINO [facility] [id number] [place] 00:00:00 00:00:[address] 2019-08-24 2019-08-25 Outpatient FARACH, [facility] [id number] 417 [place] 00:00:00 00:00:00 SIMON [address] 2019-08-24 2019-08-24 Outpatient FARACH, [facility] [id number] 417 [place] 00:00:00 00:00:00 SIMON [address] 2019-08-04 2019-08-05 Outpatient DALILA, SABINO [facility] [id number] [place] 00:00:00 00:00:[address] 2019-07-13 2019-07-13 Outpatient DALILA, SABINO [facility] [id number] [place] 00:00:00 00:00:[address] Results Test Description Test Time Test Comments Results Result Comments Source POC creatinine 2022-08-02 19:26:00 Test Item Value Reference Range Interpretation Comme nts POC creatinine (test code = 0.9 mg/dl 0.5-0.9 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 Interpretation is based on recommendations of the National Kidney Foundation-Kidn ey Disease Outcomes Qualit y Initiative (NKF-KDOQI) pub lished in 2014. [facility] [id number] 21:11:00 Test Item Value Reference Range Interpretation Comments Class description Comment Levels of (test code = 1283535) Specif ic IgE Class Descripti on of Class -- ---- - -- --- < 0.10 0 Negative 0.10 - 0.31 0/I Equivocal/Low 0.32 - 0.55 I L ow 0.56 - 1.40 II Moderate 1.41 - 3.90 III High 3.91 - 19.00 IV Very High 19.01 - 100.00 V Very High >100.00 Very High IgE (test code = 18 See_Comment [Automated 20413-6) message] The system which generated this result transmitted reference range : 6 - 495 IU/mL. The reference range was not used to interpr et this result as normal/abnormal . D. pteronyssinus <0.10 Class 0 kU/L (test code = 6096-2) D. farinae (test code <0.10 Class 0 kU/L = 6095-4) Cat epithellium (test <0.10 Class 0 kU/L code = 6833-8) Dog epithellium (test <0.10 Class 0 kU/L code = 6098-8) Bermuda grass (test <0.10 Class 0 kU/L code = 6041-8) Gurjit grass (test <0.10 Class 0 kU/L code = 6265-3) Cockroach (test code 0.14 kU/L Class 0/I A = 6078-0) Penicillium chrysogen <0.10 Class 0 kU/L (test code = 6212-5) Cladosporium herbarum <0.10 Class 0 kU/L (test code = 6075-6) Aspergillus fumigatus <0.10 Class 0 kU/L (test code = 6025-1) Alternaria alternata <0.10 Class 0 kU/L (test code = 6020-2) Bath IgE (test <0.10 Class 0 kU/L code = 7155-5) Allergen silver birch <0.10 Class 0 kU/L (test code = 35729-0) Mountain cedar tree <0.10 Class 0 kU/L (test code = 6178-8) [place] (test code = <0.10 Class 0 kU/L 6189-5) Elm IgE (test code = <0.10 Class 0 kU/L 6109-3) Yell tree (test <0.10 Class 0 kU/L code = 6090-5) White otis tree (test <0.10 Class 0 kU/L code = 6278-6) Pecan/[place] tree <0.10 Class 0 kU/L IgE (test code = 6209-1) [place] Tree (test <0.10 Class 0 kU/L code = 6281-0) Common ragweed (test <0.10 Class 0 kU/L code = 6085-5) Rough pigweed (test <0.10 Class 0 kU/L code = 7604-2) Rough marshelder <0.10 Class 0 kU/L (test code = 6232-3) Sheep sorrel class <0.10 Class 0 kU/L (test code = 6244-8) Nettle class (test <0.10 Class 0 kU/L code = 6186-1) Mouse Urine Proteins <0.10 Class 0 kU/L (test code = 6181-2) ISABEL (test code = ISABEL) Performed at: [address] [place], [place] [id number] [place] [address], [place], [place] [id number] Director: Familia Ceballos MD, Phone: [phone] Lab Interpretation Abnormal (test code = 00010-2) [facility] [id number] 10:08:00 Test Item Value Reference Range Interpretation Comments CA 125 12.7 U/mL 0.0-38.1 [facility] (test code Electrochemilum inescence = 85873-5) Immunoassay (EC GRIFFIN)Values obtained with d ifferent assay methods or kits cannot beused interchangeably . Results cannot be inter preted as absoluteevidenc e of the presence or abs ence of malignant disea se. ISABEL (test Performed at: 01 code = - [facility] ISABEL) [address] [id number] Director: Shawn Fischer MD, Phone: [phone] Alevism NzxlrmqtNRBR-ImO-9 (COVID-19) RNA [Presence] in Respiratory specimen by JANNY with probe [id number] 23:29:40 Test Item Value Reference Range Interpretation Comments SARS-CoV-2 (COVID-19) RNA Not detected Not-Detected [Presence] in Respiratory specimen by JANNY with probe detection (test code = 45906-5) MALLIE CORI PAXJAMIR coronavirus 2 RNA [Presence] in Respiratory specimen by JANNY with probe [id number] 13:24:17 Test Item Value Reference Range Interpretation Comments SARS coronavirus 2 RNA Not detected Not-Detected [Presence] in Respiratory specimen by JANNY with probe detection (test code = 13982-9) MALLIE CORI PAX
--- NOTE | 2023-01-29 11:56 | EDPHYS ---
Physician Documentation [facility] Name: Sri Fink Age: 52 yrs Sex: Female : 1970 Arrival Date: 01/29/2023 Time: 11:34 Bed 11 Private MD: Logan Rosen ED Physician Louis Bradshaw HPI: 01/29 11:56 This 52 yrs old Female presents to ER via Ambulatory with complaints of Chest ms3 Tightness, Breathing Difficulty, Sore Throat. 11:56 52-year-old female with past medical history of ovarian cancer, uterine cancer, ms3 allergies presents for chemical exposure while at work. Patient states while at work steam from the [employer] table that was recently worked on began to make her feel flushed, ears ringing, facial numbness, hoarse voice. Patient states her symptoms have improved since leaving work. Patient denies aggravating factors. patient denies pain at this time. 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 - Social history:: Smoking status: Patient denies any tobacco usage or history of. ROS: 11:56 Constitutional: Negative for fever, and chills. Neck: Negative for injury, pain, and ms3 swelling, Cardiovascular: Negative for chest pain, and palpitations. 11:56 Respiratory: Negative for shortness of breath, cough, wheezing, and pleuritic chest pain, Abdomen/GI: Negative for abdominal pain, nausea, vomiting, diarrhea, and constipation. 11:56 MS/Extremity: Negative for injury and deformity, Skin: Negative for injury, rash, and discoloration. 11:56 ENT: Positive for sore throat. 11:56 All other systems are negative. Exam: 11:56 Constitutional: This is a well developed, well nourished patient who is awake, alert, ms3 and in no acute distress. Head/Face: Normocephalic, atraumatic. ENT: Nares patent. No nasal discharge, no septal abnormalities noted. Tympanic membranes are normal and external auditory canals are clear. Oropharynx with no redness, swelling, or masses, exudates, or evidence of obstruction, uvula midline. Mucous membranes moist. Neck: Trachea midline, no cervical lymphadenopathy. Supple, full range of motion without nuchal rigidity, or vertebral point tenderness. No Meningismus. Chest/axilla: Normal chest wall appearance and motion. Nontender with no deformity. Cardiovascular: Regular rate and rhythm with a normal S1 and S2. No gallops, murmurs, or rubs. Normal PMI, no JVD. No pulse deficits. Respiratory: Lungs have equal breath sounds bilaterally, clear to auscultation and percussion. No rales, rhonchi or wheezes noted. No increased work of breathing, no retractions or nasal flaring. Abdomen/GI: Soft, non-tender, with normal bowel sounds. No distension or tympany. No guarding or rebound. No evidence of tenderness throughout. Skin: Warm, dry with normal turgor. Normal color with no rashes, no lesions, and no evidence of cellulitis. MS/ Extremity: Pulses equal, no cyanosis. Neurovascular intact. Full, normal range of motion. Neuro: Awake and alert, GCS 15, oriented to person, place, time, and situation. Cranial nerves II-XII grossly intact. Motor strength 5/5 in all extremities. Sensory grossly intact. Cerebellar exam normal. Normal gait. Vital Signs: 11:39 BP 154 / 95; Pulse 81; Resp 21; Temp 98.1; Pulse Ox 100% ; Weight 99.79 kg; Height 4 ap3 ft. 11 in. ; 11:39 Body Mass Index 44.43 (99.79 kg, 149.86 cm) ap3 MDM: 11:55 Patient medically screened. ms3 11:56 Differential diagnosis: Asthma vs Allergic Reaction vs Anxiety. Data reviewed: vital ms3 signs, nurses notes, and as a result, I will discharge patient. I considered the following discharge prescriptions or medication management in the emergency department Medications were administered in the Emergency Department. See MAR. Counseling: I had a detailed discussion with the patient and/or guardian regarding: the historical points, exam findings, and any diagnostic results supporting the discharge/admit diagnosis, the need for outpatient follow up, to return to the emergency department if symptoms worsen or persist or if there are any questions or concerns that arise at home. Special discussion: I discussed with the patient/guardian in detail that at this point there is no indication for admission to the hospital. It is understood, however, that if the symptoms persist or worsen the patient needs to return immediately for re-evaluation. ED course: On exam patient without wheezing, rashes, throat swelling. Patient states her symptoms have improved. Patient given prednisone in the emergency department and prescription for prednisone. Patient to follow-up with her primary care physician in 2 to 3 days. Patient understands and agrees with plan. All questions were answered. Return precautions discussed include worsening symptoms, or any other concerns. Administered Medications: 12:12 Not Given (Pt requesting 10mg instead.): predniSONE PO 40 mg PO once cm10 12:12 Drug: predniSONE PO 10 mg Route: PO; cm10 Disposition Summary: 01/29/23 11:56 Discharge Ordered Location: Home ms3 Condition: Stable ms3 Diagnosis - Reaction to chemical ms3 Followup: ms3 - With: Logan Rosen MD - When: 2 - 3 days - Reason: Recheck today's complaints Forms: - Medication Reconciliation Form ms3 - Thank You Letter ms3 - Antibiotic Education ms3 - Prescription Opioid Use ms3 - Patient Portal Instructions.htm ms3 Signatures: Geena Chahuan, RN RN ap3 Louis Bradshaw DO DO ms3 Saba Knapp, RN RN cm10
--- NOTE | 2023-01-29 11:56 | ER ---
Nurse's Notes [facility] Name: Sri Fink Age: 52 yrs Sex: Female : 1970 Arrival Date: 01/29/2023 Time: 11:34 Bed 11 Private MD: Logan Rosen Diagnosis: Reaction to chemical Presentation: 01/29 11:39 Chief complaint: Patient states: she started having cough, nausea and chest tightness ap3 while at work this morning. 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 patient states she has had a headache since, and "feels weird". patient states since she left, her symptoms have improved. Coronavirus screen: At this time, the client does not indicate any symptoms associated with coronavirus-19. Ebola Screen: No symptoms or risks identified at this time. Initial Sepsis Screen: Does the patient meet any 2 criteria? No. Patient's initial sepsis screen is negative. Does the patient have a suspected source of infection? No. Patient's initial sepsis screen is negative. Risk Assessment: Do you want to hurt yourself or someone else? Patient reports no desire to harm self or others. Onset of symptoms was January 29, 2023. 11:39 Method Of Arrival: Ambulatory ap3 11:39 Acuity: OCTAVIO 3 ap3 Triage Assessment: 11:44 General: Appears in no apparent distress. Behavior is calm, cooperative. Pain: Denies ap3 pain. Neuro: Level of Consciousness is awake, alert, obeys commands, Oriented to person, place, time, situation. Neuro:. Cardiovascular: Patient's skin is warm and dry. Respiratory: Reports chest tightness, which has improved since she left work Airway is patent Respiratory effort is even, unlabored, Respiratory pattern is regular, symmetrical. GI: Reports nausea. 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 - Social history:: Smoking status: Patient denies any tobacco usage or history of. Screenin:45 [facility] ED Fall Risk Assessment (Adult) History of falling in the last 3 months, ap3 including since admission No falls in past 3 months (0 pts). Abuse screen: Denies threats or abuse. Nutritional screening: No deficits noted. Tuberculosis screening: No symptoms or risk factors identified. Assessment: 12:13 Reassessment: See triage assessment. Pain: Denies pain. cm10 12:14 Pain: Pain does not radiate. Pain began suddenly. cm10 Vital Signs: 11:39 BP 154 / 95; Pulse 81; Resp 21; Temp 98.1; Pulse Ox 100% ; Weight 99.79 kg; Height 4 ap3 ft. 11 in. ; 11:39 Body Mass Index 44.43 (99.79 kg, 149.86 cm) ap3 ED Course: 11:36 Patient arrived in ED. rg4 11:37 Logan Rosen MD is Private Physician. rg4 11:40 Louis Bradshaw DO is Attending Physician. ms3 11:43 Triage completed. ap3 11:45 Arm band placed on right wrist. ap3 11:45 Patient maintains SpO2 saturation greater than 95% on room air. ap3 11:49 Saba Knapp, ALTAGRACIA is Primary Nurse. cm10 11:55 Logan Rosen MD is Referral Physician. ms3 12:13 Patient has correct armband on for positive identification. Bed in low position. Call cm10 light in reach. Provided Education on: NA. Pulse ox on. NIBP on. 12:13 No provider procedures requiring assistance completed. Patient did not have IV access cm10 during this emergency room visit. Administered Medications: 12:12 Not Given (Pt requesting 10mg instead.): predniSONE PO 40 mg PO once cm10 12:12 Drug: predniSONE PO 10 mg Route: PO; cm10 Medication: 12:14 VIS not applicable for this client. cm10 Outcome: 11:56 Discharge ordered by . ms3 12:13 Discharged to home ambulatory. cm10 12:13 Condition: good 12:13 Discharge instructions given to patient, Instructed on discharge instructions, follow up and referral plans. Demonstrated understanding of instructions, follow-up care. 12:14 Patient left the ED. cm10 Signatures: Nova Donato rg4 Geena Chauhan RN RN ap3 Louis Bradshaw DO DO ms3 Ra, Saba, RN RN cm10 Corrections: (The following items were deleted from the chart) 11:44 11:39 Chief complaint: Patient states: she started having cough, nausea and chest ap3 tightness while at work this morning. 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 patient states she has had a headache since, and "feels weird" ap3
[2023-01-29] MEDS ORDERED: predniSONE 20 MG TAB ONE (12:16)
[2023-01-29] MEDS ORDERED: predniSONE 10 MG TAB ONE (12:18)
[2023-01-29 12:47] VITALS: BP 154/95; TEMP 98.1; O2SAT 100
== END 2023-01-29 12:14 | disposition home or self-care (01) ==
LOC: ER 11:34
DX: R07.89 Other chest pain (principal); R07.0 Pain in throat; Z77.098 Contact with and (suspected) exposure to other hazardous, chiefly nonmedicinal, chemicals
CPT/HCPCS: J7512

== ENCOUNTER 2023-06-03 07:11 | Emergency (ER) | payer BC ==
--- OUTSIDE RECORDS SUMMARY | 2023-06-03 07:16 | XMS REPORT | Continuity of Care Document ---
:1970 Author Organization [facility] t Address [address] [facility] [address] [place] [id number] Care Team Providers Name Role Phone Logan Rosen Primary Care Physician Logan Rosen Attending Clinician Unavailable LJ JENKINS Attending Clinician Unavailable Benji MEJIA, Liliana Attending Clinician GC_TNC_Lovitt_S Attending Clinician Unavailable Terry Serra MD Attending Clinician Marco Raya MA Attending Clinician Unavailable Nayla Castorena MD Attending Clinician [phone] STEPHEN PURI Attending Clinician Unavailable Dalila MEJIA, Sabino Attending Clinician NISH OAKLEY Attending Clinician Unavailable Thelma Paz MD Attending Clinician Laisha Knapp MA Attending Clinician Unavailable George MEJIA, Cesar Myles Attending Clinician [phone] Nithya Yu Attending Clinician Unavailable Didier Ring MA Attending Clinician Unavailable ADAM HARRELL Attending Clinician Unavailable Shannon Kingston RN Attending Clinician Unavailable Only, Ang Db Test Attending Clinician Unavailable Scott Lantigua Attending Clinician SCOTT BRANCH Attending Clinician Unavailable BROOKLYN DO Attending Clinician Unavailable Nuria Matta MA Attending Clinician Unavailable SHAYY BANERJEE Attending Clinician Unavailable SIMON BILLINGS Attending Clinician Unavailable TWIN PASCAL Attending Clinician Unavailable Nish Oakley Attending Clinician Unavailable LUIS ARMANDO EDDY Attending Clinician Unavailable MD LUIS ARMANDO EDDY Attending Clinician Unavailable GC_TNC_Lovitt_S Admitting Clinician Unavailable Physician, No Primary or Family Admitting Clinician UnavailLUIS ARMANDO Reis Admitting Clinician Unavailable MD LUIS ARMANDO EDDY Admitting Clinician Unavailable DALILA, SABINO Admitting Clinician Unavailable Payers Payer Name Policy Type Policy Number Effective Date Expiration Date S ned[place] [id number] 2019 [facility] 00:00:00 [facility] [id number] Problems Condition Condition Condition Status Onset Resolution Last Treating Co mments Source Name Details Category Date Date Treatment Clinician Date Multiple Multiple Disease Active 2022-07 Metho di thyroid thyroid 07-22 nodules nodules 00:00: Hospita 00 l Hypothyroi Hypothyroi Disease Active M ethodi dism due dism due 02-21 to to 00:00: Hospita [place] 00 l s s thyroiditi thyroiditi s s Class 3 Class 3 Disease Active Methodi severe severe 02-21 obesity obesity 00:00: Hospita due to due to 00 l excess excess calories calories with with serious serious comorbidit comorbidit y in adult y in adult [place]o' Disease Active U T s disease s disease 12-12 00:00: 00 Uncomplica Uncomplica Disease Active 2020-07 M ethodi kaitlyn asthma kaitlyn asthma st 00:00: Hospita 00 l 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 04-18 Heal 00:00: 00 Malignant Malignant Disease Active UT neoplasm neoplasm 04-18 Health of ovary of ovary 00:00: 00 Primary Primary Disease Active Methodi malignant malignant 04-18 st neoplasm neoplasm 00:00: Hospit a of ovary of ovary 00 l Dyspnea on Dyspnea on Disease Active M ethodi exertion exertion 20 st 00:00: Hospita 00 l Lung Lung Disease Active Methodi nodules nodules 02-07 st 00:00: Hospita 00 l Atypical Atypical Disease Active Metho di face pain face pain 715 st 00:00: Hospita 00 l 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 Formattin g of this note might be different from the original. left maxillary sinus Peripheral Peripheral Disease Active M ethodi venous venous 02-02 st insufficie insufficie 00:00: Ho spita ncy ncy 00 l Postnasal Postnasal Disease Active Met hodi drip drip 15 st 00:00: Hospita 00 l Restless Restless Disease Active Metho di legs legs 15 st 00:00: Hospita 00 l Routine Routine Disease Active Methodi general general 715 st medical medical 00:00: Hospita examinatio examinatio 00 l n at a n at a [facility] health care care facility facility Status Status Disease Active 2019-07 Methodi post post 2-07 st radiation radiation 00:00: Hosp mo therapy therapy 00 l Endometria Endometria Disease Active M ethodi l cancer l cancer 14 st 00:00: Hospita 00 l Varicose Varicose Disease Active 2018-07 Metho di veins of veins of 2-02 st lower lower 00:00: Hospita extremity extremity 00 l Hypertroph Hypertroph Disease Active 2017-07 M ethodi y of nasal y of nasal 0-23 st turbinates turbinates 00:00: Ho spita 00 l Deviated Deviated Disease Active 2011-07 Metho di nasal nasal 0-19 st septum septum 00:00: Hospita 00 l ETD ETD Disease Active 2010-07 Methodi (eustachia (eustachia 1-30 st n tube n tube 00:00: Hospita dysfunctio dysfunctio 00 l n) n) Food Food Disease Active 2010-07 Methodi allergy allergy 08-20 00:00: Hospita 00 l Allergic Allergic Disease [...] different from the original. 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 Allergies, Adverse Reactions, Alerts Allergy Allergy Status Severity Reaction(s) Onset Inactive Treating Comm ents Source Name Type Date Date Clinician Acetamin Propensi Active Unknown 2018-07 Nausea/vo [place] ophen-Co [facility] deine adverse 00:00: dizzy reaction 00 s Acetamin Propensi Active GI 2018-07 Nausea/vo Met hodi ophen-Co ty to Intolerance 09-13 [facility] deine adverse 00:00: dizzy Hospita reaction 00 [...] stomachPa tient says it upsets her stomach ASPIRIN DRUG Active NAUSEA ONLY Univ ers INGREDI 09-03 ity of 00:00: [place] 00 [facility] Aspirin Propensi Active Nausea Only Un anusha ty to 09-03 ity of adverse 00:00: [place] reaction 00 Medical s Branch Aspirin Propensi Active GI Patient Method i ty to Intolerance 09-[address] adverse 00:00: upsets Hospita reaction 00 her l s to stomach drug Family History Family Member Diagnosis Comments Start Date Stop Date Source Natural brother Ulcers [facility] Natural father Cancer [facility] Maternal grandmother Heart disease [facility] Natural mother Hypertension [facility] Natural mother Lung cancer [facility] Natural mother Thyroid disease [facility] Natural sister Cancer [facility] Natural sister Thyroid disease [facility] Natural sister Lung cancer [facility] Social History Social Habit Start Date Stop Date Quantity Comments Source History of tobacco Cigarette Smoker Confucianist use [facility] Gender identity [facility] Sexual orientation [facility] Alcohol intake 2023-05-22 2023-05-22 Ex-drinker Confuc[facility]ist 00:00:00 00:00:00 (finding) Hospital History of Social 2023-05-22 2023-05-[address] function 00:00:00 00:00:00 Hospital Exposure to 2022-12-02 2022-12-12 Not sure [facility] SARS-CoV-2 (event) 00:00:00 08:58:00 Cigarettes smoked 2022-05-16 2022-05-[address] current (pack per 00:00:00 00:00:00 Hospita l day) - Reported Cigarette 2022-05-16 2022-05-16 [facility]ist pack-years 00:00:00 00:00:00 Hospital Tobacco use and 2022-05-16 2022-05-16 Smokeless Confucianist exposure 00:00:00 00:00:00 tobacco non-user Hospital Sex Assigned At [birth year] [facility] 00:00:00 00:00:00 Hospital Smoking Status Start Date Stop Date Source Tobacco smoking consumption [facility] ealt unknown Ex-smoker 2022-05-16 00:00:00 2022-05-16 00:00:00 [facility] Medications Ordered Filled Start Stop Current Ordering Indication Dosage Frequency Signature Comments Components Source Medication Medication Date Date Medication? Clinician (SIG) Name Name levocetiriz 2022-07 Yes 5mg Take 1 Meth palomo ine (XYZAL) 07-22 tablet (5 st 5 MG tablet 13:27: mg total) H ospita 22 by mouth l as needed. phentermine 2022-07 Yes [id number] 15mg QD Take 1 Methodi 15 MG [address] capsule 00:00: (15 mg Hospita 00 total) by l mouth every morning. semaglutide 2022-07 Yes [id number] 3mg QD Take 3 mg Methodi (Rybelsus) 07-[address] 3 mg tablet 00:00: daily. Hosp mo 00 l semaglutide 2022-07- No [id number] 3mg QD Take 3 mg Methodi (Rybelsus) 07-[address] 3 mg tablet 00:00: 00:00 daily. Hos cb 00 :00 l semaglutide 2022-07- No [id number] 3mg QD Take 3 mg Methodi (Rybelsus) 07-[address] 3 mg tablet 00:00: 00:00 daily. Hos cb 00 :00 l semaglutide 2022-07- No [id number] 3mg QD Take 3 mg Methodi (Rybelsus) 07-[address] 3 mg tablet 00:00: 00:00 daily. Hos cb 00 :00 l meloxicam 2022-07- Yes 15mg QD Take 1 Metho di (Mobic) 15 06-21 tablet (15 st mg tablet 00:00: 05:59 mg total) Ho spita 00 :00 by mouth l daily for 30 days. levothyroxi 2022- No 75ug QD Take 1 Met hodi ne 02-21 tablet (75 st (SYNTHROID) 15:07: 00:00 mcg total) Hospita 75 mcg 55 :00 by mouth l tablet daily. meloxicam 2022- No 15mg QD Take 1 Metho di (MOBIC) 15 02-21 tablet (15 st mg tablet 14:53: 00:00 mg total) Ho spita 38 :00 by mouth l daily. levothyroxi Yes [id number] 75ug QD Take 1 Methodi ne 02-21 tablet (75 st (SYNTHROID) 00:00: mcg total) Hospita 75 mcg 00 by mouth l tablet daily. phentermine 2022- No [id number] 15mg QD Take 1 Methodi 15 MG 02-[address] capsule 00:00: 00:00 (15 mg Hospita 00 :00 total) by l mouth every morning. semaglutide 2022- No [id number] 3mg QD Take 3 mg Methodi (Rybelsus) 8-[address] 3 mg tablet 00:00: 00:00 daily. Hos cb 00 :00 l levothyroxi Yes 75ug QD Take 75 UT [...] QD Take 1 Metho di (MOBIC) 15 -29 11-23 tablet (15 st mg tablet 09:18: 05:59 mg total) Ho spita 03 :00 by mouth l daily. Rybelsus 3 Yes 1{tbl} QD Take 1 Met hodi mg tablet 3-[address] 00:00: mouth Hospita 00 daily. l Rybelsus 3 Yes 1{tbl} QD Take 1 UT MG tablet 3-22 tablet by Healt h 00:00: mouth 1 00 (one) time each day. Rybelsus 3 2022- No 1{tbl} QD Take 1 Me thodi mg tablet 3-22 08-[address] 00:00: 00:00 mouth Hospita 00 :00 daily. l naproxen 2021-07- No Take by Metho di sodium 1-10 11-[address] (ALEVE 11:59: 00:00 tablets Hospita ORAL) 40 :00 for l neuropathy Qsymia 2021-07 Yes 1{capsu QD Take 1 Method i 3.75-23 mg 0-13 le} capsule by st capsule, ER 00:00: mouth Hospi ta multiphase 00 daily. l 24 hr Qsymia 2021-07- No 1{capsu QD Take 1 Metho di 3.75-23 mg 0-13 - le} capsule by st capsule, ER 00:00: 00:00 mouth Hosp mo multiphase 00 :00 daily. l 24 hr phentermine 2021-0 Yes 15mg QD Take 1 Meth palomo 15 MG - capsule st capsule 00:00: (15 mg Hospita 00 total) by l mouth daily. phentermine 0 2022- No 15mg QD Take 1 Met hodi 15 MG -11 03- capsule st capsule 00:00: 00:00 (15 mg Hospita 00 :00 total) by l mouth daily. meloxicam 0 2021- No 15mg QD Take 1 Metho di (Mobic) 15 01-18- tablet (15 st mg tablet 00:00: 04:59 mg total) Ho spita 00 :00 by mouth l daily for 30 days. olopatadine Yes 2{spray 2 sprays. UT (Patanase) 04-18 } Health 0.6 % 10:56: solution 16 nasal spray olopatadine Yes 2{spray 2 sprays. UT (Patanase) 04-18 } Health 0.6 % 10:56: solution 16 nasal spray olopatadine 2020-0 Yes 2{spray 2 sprays. UT (Patanase) 04-18 } Health 0.6 % 10:56: solution 16 nasal spray levocetiriz Yes levocetiri UT ine (Xyzal) 04-18 zine 5 mg Hea lth 5 MG tablet 10:46: tablet Loratadine Yes UT (Claritin) 04-18 Health 10 MG 10:46: capsule levocetiriz Yes levocetiri UT ine (Xyzal) 04-18 zine 5 mg Hea lth 5 MG tablet 10:46: tablet 21 Loratadine 0 Yes UT (Claritin) 04-18 Health 10 MG 10:46: capsule levocetiriz Yes levocetiri UT ine (Xyzal) 04-18 zine 5 mg Hea lth 5 MG tablet 10:46: tablet Loratadine Yes UT (Claritin) 04-18 Health 10 MG 10:46: capsule 21 ampicillin 2010-0 Yes [id number] 500mg Take 1 Cap Univers (PRINCIPEN) 4-08 by mouth ity of 500 mg 00:00: every 8 [place] capsule 00 (eight) Medical hours. Branch ampicillin 2010- Yes [id number] 500mg Take 1 Cap Univers (PRINCIPEN) 4-08 [...] [place] PT[place] [facility] [place] albuterol 2005-0 Yes Inhale. Metho di (PROAIR 8-22 st HFA) 90 00:00: Hospita mcg/actuati 00 l on inhaler albuterol 0 Yes Inhale. Metho di (PROAIR 8-22 st HFA) 90 00:00: Hospita mcg/actuati 00 l on inhaler ALBUTEROL 2005-0 Yes one puff Univ ers 90 8-22 bid prn ity of MCG/ACTUATI 00:00: [place] ON INHALE 00 [facility] AERO [place] ALBUTEROL 2005-0 Yes one puff Univ ers 90 8-22 bid prn ity of MCG/ACTUATI 00:00: [place] ON INHALE 00 [facility] Immunizations Ordered Filled Date Status Comments Source Immunization Name Immunization Name SARS-COV-2 COVID-19 2021-06-05 Completed Unive rsity of PFIZER VACCINE 00:00:00 [facility] SARS-COV-2 COVID-19 2021-06-05 Completed Unive rsity of PFIZER VACCINE 00:00:00 [facility] SARS-COV-2 COVID-19 2020-10-08 Completed Unive rsity of PFIZER VACCINE 00:00:00 [facility] SARS-COV-2 COVID-19 2020-10-08 Completed Unive rsity of PFIZER VACCINE 00:00:00 [facility] SARS-COV-2 COVID-19 2020-09-17 Completed Unive rsity of PFIZER VACCINE 00:00:00 [facility] SARS-COV-2 COVID-19 2020-09-17 Completed Unive rsity of PFIZER VACCINE 00:00:00 [facility] PFIZER COVID-19 Unknown Completed [facility] P[facility] COVID-19 Unknown Completed [facility] PFIZER COVID-19 Unknown Completed [facility] Vital Signs Vital Name Observation Time Observation Value Comments Source Body weight 2022-12-12 14:12:00 [facility]152 [facility] BMI 2022-12-12 14:12:00 43.55 kg/m2 [facility] Body height 2022-12-12 14:12:00 152.4 cm [facility] Systolic blood 2023-05-22 18:24:00 158 mm[Hg] [facility] pressure Diastolic blood 2023-05-22 18:24:00 85 mm[Hg] [facility] pressure Heart rate 2023-05-22 18:24:00 75 /min [facility] Body height 2023-05-22 18:24:00 152.4 cm [facility] Body weight 2023-05-22 18:24:00 97.977 kg [facility] BMI 2023-05-22 18:24:00 42.18 kg/m2 [facility] Oxygen saturation in 2023-05-22 18:24:00 99 /min [facility] Arterial blood by Pulse oximetry Systolic blood 2022-11-14 16:08:00 160 mm[Hg] [facility] pressure Diastolic blood 2022-11-14 16:08:00 82 mm[Hg] [facility] pressure Heart rate 2022-11-14 16:08:00 68 /min [facility] Body weight 2022-11-14 16:08:00 102.876 kg [facility] BMI 2022-11-14 16:08:00 45.81 kg/m2 [facility] Body height 2022-07-02 17:29:00 149.9 cm [facility] Oxygen saturation in 2022-07-02 17:29:00 97 /min [facility] Arterial blood by Pulse oximetry Procedures Procedure Date / Time Performing Clinician Source Performed XR FINGER 2+ VW RIGHT 2023-05-21 18:55:27 Terry Serra [facility] XR LUMBAR SPINE COMPLETE 2023-03-01 15:17:25 Jad [facility] 4+ VW XR CERVICAL SPINE 2 OR 3 2023-03-01 15:17:08 Jad [facility] VW XR ELBOW 2 VW RIGHT 2023-03-01 15:16:52 Jad [facility] XR HIP 2-3 VIEWS RIGHT 2023-02-13 14:04:47 [facility] W[facility]ST 3+ VW LEFT 2023-02-13 14:04:33 Jad [facility] XR HIP 2-3 VIEWS LEFT 2023-02-13 14:04:19 Jad [facility] XR KNEE 3 VW RIGHT 2023-02-13 14:03:52 [facility] 2023-02-13 13:47:32 Nish Oakley [facility] TOMOSYNTHESIS BILATERAL CT CHEST W CONTRAST 2022-08-02 20:05:44 [facility] CONTRAST PELVIS W CONTRAST POC CREATININE 2022-08-02 19:24:00 [facility] ESTIMATED GFR 2022-08-02 19:24:00 Dalila [facility] Ho spital [place] ARTHROCENTESIS 2022-06-12 19:00:00 Ponce [facility] ASPIR&/INJ SMALL JT/BURSA W/O US BRONCHIAL CHALLENGE 2022-06-11 15:59:37 [facility] MRI UPPER EXTREMITY WO 2022-06-04 14:35:42 [facility] CONTRAST RIGHT CANCER ANTIGEN 125 2022-05-29 21:49:00 [facility] ALLERGY EVALUATION , 2022-05-29 21:45:00 Cesar Galaviz [facility] MAMMO BREAST SCREEN 2022-02-07 17:42:00 Nish Oakley [facility] [place] [facility] TOMOSYNTHESIS BILATERAL CT SINUS 2021-04-27 15:47:09 Lj Jenkins [facility] LANDMARK/FUSION/KHALIF WO CONTR Plan of Care Planned Activity Planned Date Details Comments Source Future Scheduled 2023-05-27 Screening for [facility] Test 14:31:23 malignant neoplasm of colon (procedure) [code = 821795872] Future Scheduled 2023-05-27 Screening for [facility] Test 14:31:23 malignant neoplasm of colon (procedure) [code = 032404274] Future Scheduled 2023-05-27 Screening for [facility] Test 14:31:23 malignant neoplasm of colon (procedure) [code = 054597874] Future Scheduled 2023-05-27 Pneumococcal Vaccine: [facility] Test 14:31:23 Pediatrics (0 to 5 Years) and At-Risk Patients (6 to 64 Years) (1 - PCV) [code = Pneumococcal Vaccine: Pediatrics (0 to 5 Years) and At-Risk Patients (6 to 64 Years) (1 - PCV)] Future Scheduled 2023-05-27 DIABETES: RETINAL EYE [facility] Test 14:31:23 EXAM [code = DIABETES: RETINAL EYE EXAM] Future Scheduled 2023-05-27 DIABETIC FOOT EXAM [facility] Test 14:31:23 [code = DIABETIC FOOT EXAM] Future Scheduled 2023-05-27 Hepatitis C screening [facility] Test 14:31:23 (procedure) [code = 869044137] Future Scheduled 2023-05-27 Screening for [facility] Test 14:31:23 malignant neoplasm of cervix (procedure) [code = 435206646] Future Scheduled 2023-05-27 Screening for [facility] Test 14:31:23 malignant neoplasm of colon (procedure) [code = 346112934] Future Scheduled 2023-05-27 Screening for [facility] Test 14:31:23 malignant neoplasm of colon (procedure) [code = 536640985] Future Scheduled 2023-05-27 SHINGLES VACCINES (1 Met [facility] Test 14:31:23 of 2) [code = SHINGLES VACCINES (1 of 2)] Future Scheduled 2023-05-27 COVID-19 VACCINE (4 - [facility] Test 14:31:23 season) [code = COVID-19 VACCINE (4 - season)] Future Scheduled 2023-05-27 INFLUENZA VACCINE (#1) [facility] Test 14:31:23 [code = INFLUENZA VACCINE (#1)] Future Scheduled 2023-05-27 BREAST CANCER [facility] Test 14:31:23 SCREENING [code = BREAST CANCER SCREENING] Future Scheduled 2023-01-29 Screening for [facility] Test 11:38:48 malignant neoplasm of colon (procedure) [code = 525853162] Future Scheduled 2023-01-29 Screening for [facility] Test 11:38:48 malignant neoplasm of colon (procedure) [code = 330681875] Future Scheduled 2023-01-29 Screening for [facility] Test 11:38:48 malignant neoplasm of colon (procedure) [code = 449309982] Future Scheduled 2023-01-29 Pneumococcal Vaccine: [facility] Test 11:38:48 Pediatrics (0 to 5 Years) and At-Risk Patients (6 to 64 Years) (1 - PCV) [code = Pneumococcal Vaccine: Pediatrics (0 to 5 Years) and At-Risk Patients (6 to 64 Years) (1 - PCV)] Future Scheduled 2023-01-29 Hepatitis C screening [facility] Test 11:38:48 (procedure) [code = 028295026] Future Scheduled 2023-01-29 Screening for [facility] Test 11:38:48 malignant neoplasm of cervix (procedure) [code = 153326672] Future Scheduled 2023-01-29 Screening for [facility] Test 11:38:48 malignant neoplasm of colon (procedure) [code = 418275672] Future Scheduled 2023-01-29 Screening for [facility] Test 11:38:48 malignant neoplasm of colon (procedure) [code = 790374147] Future Scheduled 2023-01-29 SHINGLES VACCINES (1 Met [facility] Test 11:38:48 of 2) [code = SHINGLES VACCINES (1 of 2)] Future Scheduled 2023-01-29 COVID-19 VACCINE (4 - [facility] Test 11:38:48 Pfizer series) [code = COVID-19 VACCINE (4 - Pfizer series)] Future Scheduled 2023-01-29 BREAST CANCER [facility] Test 11:38:48 SCREENING [code = BREAST CANCER SCREENING] Future Scheduled 2023-01-29 INFLUENZA VACCINE [facility] Test 11:38:48 [code = INFLUENZA VACCINE] Encounters Start End Encounter Admission Attending Care Care Encounter Source Date/Time Date/Time Type Type Clinicians Facility Department ID 2022-12-18 Outpatient [facility] [id number] [place] 11:22:00 [id number] [facility] 2022-12-12 Outpatient [facility] [id number] [place] 08:57:45 [id number] [facility] 2022-12-11 Outpatient [facility] [id number] [place] 12:11:50 [id number] [facility] 2022-01-11 Outpatient Jessika, [facility] [id number] Common 08:00:01 [facility] 2021-12-20 Outpatient [facility] [id number] Common 08:17:01 [facility] 2021-09-15 Outpatient [facility] [id number] Common 09:52:04 [facility] 2021-04-18 Outpatient CITARDI, [facility] [id number] [place] 11:34:28 [facility] 2021-04-18 Outpatient CITARDI, [facility] [id number] [place] 11:29:08 [facility] 2023-05-28 2023-05-28 Outpatient CITARDI, [facility] [id number] [place] 10:00:00 10:00:00 [facility] 2023-05-22 2023-05-23 Office Benji, 1.2.840.1 [id number] Methodi 13:30:00 17:05:35 Visit Liliana [id number] 3.430.2.7 Hospit a .3.687343 l .8 2023-05-23 2023-05-23 Outpatient GC_TNC_Lovi PRIV PRIV [id number] [facility] 00:00:00 00:00:00 tt_S [id number] Medica l 2023-05-22 2023-05-23 [facility] [id number] [place] 00:00:00 00:00:[address] LIL[address]NA [address] 2023-05-22 2023-05-22 Travel 1.2.840.1 [id number] Methodi 00:00:00 00:00:[id number] 3.430.2.7 0.2.7.3.698 spita .3.834034 084.8 l .8 2023-05-21 2023-05-21 Office Terry Serra 1.2.840.1 [id number] Methodi 13:40:00 14:26:46 Visit Romana [id number] 3.430.2.7 Hospit a .3.365626 l .8 2023-05-21 2023-05-21 Outpatient TERRY SERRA [facility] [id number] [place] 00:00:00 00:00:[address] 2023-05-21 2023-05-21 Outpatient TERRY SERRA [facility] [id number] [place] 00:00:00 00:00:[address] 2023-05-15 2023-05-15 Outpatient SFA SFA [id number] 15:26:09 15:26:09 [id number] F [place] 2023-05-13 2023-05-13 Outpatient CITARDI, [facility] [id number] [place] 09:00:00 09:00:00 [facility] 2023-05-06 2023-05-06 Outpatient CITARDI, [facility] [id number] [place] 09:00:00 09:00:00 [facility] 2023-04-30 2023-04-30 Outpatient CITARDI, [facility] [id number] [place] 09:00:00 09:00:00 [facility] 2023-04-24 2023-04-24 Outpatient CITARDI, [facility] [id number] [place] 07:00:00 07:00:00 [facility] 2023-04-10 2023-04-10 Outpatient SFA SFA [id number] Anand 08:28:01 08:28:01 [id number] F [place] 2023-04-02 2023-04-02 Telephone Elver, 1.2.840.1 [id number] Methodi 00:00:00 00:00:[address] 3.430.2.7 Hospit a .3.291502 l .8 2023-04-02 2023-04-02 Telephone Raffaele 1.2.840.1 [id number] Methodi 00:00:00 00:00:[address] [facility] 3.430.2.7 Hospit a .3.561661 l .8 2023-03-11 2023-03-11 Outpatient SFA SFA [id number]- Anand 11:48:54 11:48:54 [id number] F [place] 2023-03-01 2023-03-[address], [facility] [id number] 931 [place] 00:00:00 00:00:00 STEPHEN 721 Method i 2023-03-01 2023-03-[address], [facility] [id number] 931 [place] 00:00:00 00:00:00 STEPHEN 722 Method i 2023-03-01 2023-03-[address], [facility] [id number] 931 [place] 00:00:00 00:00:00 STEPHEN 723 Method i 2023-02-27 2023-02-27 Telephone Sabino Conner 1.2.840.1 [id number] 2 [id number] Methodi 00:00:00 00:00:[address] 3.430.2.7 Hospit a .3.572209 l .8 2023-02-25 2023-02-25 Outpatient SFA SFA 236789- Anand 09:36:56 09:36:56 59844 F [place] 2023-02-21 2023-02-21 Office [facility], 1.2.840.1 [id number] 549 [id number] Methodi 14:00:00 15:25:13 Visit Nayla 68191.1.[address] Diomedes 3.430.2.7 Hospit a .3.111670 l .8 2023-02-21 2023-02-21 Outpatient HEMANTBeto, [facility] 2100 [id number] [place] 00:00:00 00:00:00 NAYLA 341 Method i 2023-02-13 2023-02-13 Outpatient OAKLEY, [facility] [id number] 603 [place] 00:00:00 00:00:00 BEILAN 127 Method i 2023-02-13 2023-02-[address], [facility] [id number] 535 [place] 00:00:00 00:00:00 STEPHEN [address] 2023-02-13 2023-02-[address], [facility] [id number] 534 [place] 00:00:00 00:00:00 STEPHEN [address] 2023-02-13 2023-02-[address], [facility] [id number] 535 [place] 00:00:00 00:00:00 STEPHEN 147 Method i 2023-02-13 2023-02-[address], [facility] [id number] 535 [place] 00:00:00 00:00:00 STEPHEN 397 Method i 2023-02-05 2023-02-05 Outpatient SFA SFA [id number]- Anand 11:40:12 11:40:12 98133 F [place] 2023-02-04 2023-02-04 Outpatient SFA SFA 680648- Anand 16:05:23 16:05:23 25002 F [place] 2022-12-14 2022-12-14 Orders Brandi, 1.2.840.1 [id number] Methodi 00:00:00 00:00:00 Only Thelma 18316.1.[address] 3.430.2.7 Hospit a .3.796244 l .8 2022-12-14 2022-12-14 Orders Brandi, 1.2.840.1 [id number] 4986 Methodi 00:00:00 00:00:00 Only Thelma 87316.1.[address] 3.430.2.7 Hospit a .3.634879 l .8 2022-12-12 2022-12-12 Office Citwisam, [facility] 6400 1.2.973.324 0199 19417 [place] 09:30:00 09:48:[address] 350.1.13.58 Health 9.2.7.2.686 703.8781755 3 2022-12-11 2022-12-11 Telephone Brandi, 1.2.840.1 [id number] 2100 [id number] Methodi 00:00:00 00:00:[address] 3.430.2.7 Hospit a .3.328519 l .8 2022-12-11 2022-12-11 Telephone Ra, 1.2.840.1 [id number] 21 [id number] Methodi 00:00:00 00:00:[address] 3.430.2.7 Hospit a .3.658450 l .8 2022-12-11 2022-12-11 Telephone Brandi, 1.2.840.1 [id number] 2100 [id number] Methodi 00:00:00 00:00:[address] 3.430.2.7 Hospit a .3.209675 l .8 2022-12-11 2022-12-11 Telephone Ra, 1.2.840.1 [id number] 21 [id number] Methodi 00:00:00 00:00:[address] 3.430.2.7 Hospit a .3.829204 l .8 2022-11-15 2022-11-15 Telephone Dalila, Sabino 1.2.840.1 [id number] 2 [id number] Methodi 00:00:00 00:00:[address] 3.430.2.7 Hospit a .3.780200 l .8 2022-11-15 2022-11-15 Telephone Dalila, Sabino 1.2.840.1 [id number] 2 [id number] Methodi 00:00:00 00:00:[address] 3.430.2.7 Hospit a .3.590160 l .8 2022-11-14 2022-11-14 Office Dalila, Sabino 1.2.840.1 [id number] 106 [id number] Methodi 11:15:00 11:48:[address] 3.430.2.7 Hospit a .3.802156 l .8 2022-11-14 2022-11-14 Office Dalila, Sabino 1.2.840.1 [id number] 582 [id number] Methodi 11:15:00 11:48:[address] 3.430.2.7 Hospit a .3.001586 l .8 2022-11-14 2022-11-14 Travel 1.2.840.1 1.2.656.863 1398 687258 Methodi 00:00:00 00:00:[address] 3.430.2.7 0.2.7.3.698 Ho spita .3.104451 084.8 l .8 2022-11-14 2022-11-14 Travel 1.2.840.1 1.2.257.430 0853 977155 Methodi 00:00:00 00:00:[address] 3.430.2.7 0.2.7.3.698 Ho spita .3.115622 084.8 l .8 2022-10-17 2022-10-17 [facility] 1.2.840.1 [id number] Methodi 09:40:00 09:41:16 ne Cesar 23069.1.[address] [place] 3.430.2.7 Hospit a .3.997695 l .8 2022-10-17 2022-10-17 Telemedici [facility], 1.2.840.1 [id number] Methodi 09:40:00 09:41:16 ne Cesar 12048.1.[address] [place] 3.430.2.7 Hospit a .3.579376 l .8 2022-09-13 2022-09-13 Telephone Gigi, 1.2.840.1 [id number] 470 [id number] Methodi 00:00:00 00:00:[address] 3.430.2.7 Hospit a .3.179186 l .8 2022-09-13 2022-09-13 Telephone Gigi, 1.2.840.1 [id number] 807 [id number] Methodi 00:00:00 00:00:[address] 3.430.2.7 Hospit a .3.285285 l .8 2022-08-02 2022-08-02 [facility] 1.2.840.1 [id number] 21 [id number] Methodi 12:43:49 23:59:[address] 3.430.2.7 Hospit a .3.466438 l .8 2022-08-02 2022-08-02 [facility] 1.2.840.1 [id number] 21 [id number] Methodi 12:43:49 23:59:[address] 3.430.2.7 Hospit a .3.791063 l .8 2022-08-02 2022-08-02 Telephone Ring, 1.2.840.1 [id number] 2099 409524 Methodi 00:00:00 00:00:[address] 3.430.2.7 Hospit a .3.951259 l .8 2022-08-02 2022-08-02 Travel 1.2.840.1 1.2.466.546 9885 681098 Methodi 00:00:00 00:00:[address] 3.430.2.7 0.2.7.3.698 Ho spita .3.488120 084.8 l .8 2022-08-02 2022-08-02 Telephone Ring, 1.2.840.1 [id number] 2099 745233 Methodi 00:00:00 00:00:[address] 3.430.2.7 Hospit a .3.422857 l .8 2022-08-02 2022-08-02 Travel 1.2.840.1 1.2.701.304 4667 699362 Methodi 00:00:00 00:00:[address] 3.430.2.7 0.2.7.3.698 Ho spita .3.470305 084.8 l .8 2022-07-25 2022-07-25 [facility], 1.2.840.1 [id number] 2 [id number] Methodi 11:30:00 23:59:00 Encounter Cesar 20128.1.[address] [place] 3.430.2.7 Hospit a .3.971594 l .8 2022-07-25 2022-07-25 [facility], 1.2.840.1 [id number] 2 [id number] [place] 00:00:00 00:00:00 Encounter CESAR 47422.1.1 [address] .3.112487 .8 2022-07-25 2022-07-25 Travel 1.2.840.1 1.2.042.286 7061 809743 Methodi 00:00:00 00:00:[address] 3.430.2.7 0.2.7.3.698 Ho spita .3.720650 084.8 l .8 2022-07-25 2022-07-25 Travel 1.2.840.1 1.2.305.993 5196 551954 Methodi 00:00:00 00:00:[address] 3.430.2.7 0.2.7.3.698 Ho spita .3.952350 084.8 l .8 2022-07-10 2022-07-10 Office Terry Serra 1.2.840.1 [id number] 418 [id number] Methodi 15:20:00 15:55:[address]7310.1.[address] 3.430.2.7 Hospit a .3.775439 l .8 2022-07-10 2022-07-10 Office Terry Serra 1.2.840.1 [id number] 395 [id number] Methodi 15:20:00 15:55:[address]81.1.[address] 3.430.2.7 Hospit a .3.445227 l .8 2022-07-10 2022-07-10 Travel 1.2.840.1 1.2.462.806 0273 844093 Methodi 00:00:00 00:00:[address] 3.430.2.7 0.2.7.3.698 Ho spita .3.046574 084.8 l .8 2022-07-10 2022-07-10 Travel 1.2.840.1 1.2.475.816 0315 922538 Methodi 00:00:00 00:00:[address] 3.430.2.7 0.2.7.3.698 Ho spita .3.788060 084.8 l .8 2022-07-06 2022-07-06 Telephone Gigi, 1.2.840.1 [id number] 225 [id number] Methodi 00:00:00 00:00:[address] 3.430.2.7 Hospit a .3.880127 l .8 2022-07-06 2022-07-06 Telephone Gigi, 1.2.840.1 [id number] 926 6150627 Methodi 00:00:00 00:00:[address] 3.430.2.7 Hospit a .3.504919 l .8 2022-07-02 2022-07-02 Office George, 1.2.840.1 [id number] 21 [id number] Methodi 11:40:00 12:00:00 Visit Cesar 41451.1.[address] [place] 3.430.2.7 Hospit a .3.624927 l .8 2022-07-02 2022-07-02 Office George, 1.2.840.1 693075305 21 [id number] Methodi 11:40:00 12:00:00 Visit Cesar 68836.1.[address] [place] 3.430.2.7 Hospit a .3.105602 l .8 2022-07-02 2022-07-02 Travel 1.2.840.1 1.2.459.137 0059 554874 Methodi 00:00:00 00:00:[address] 3.430.2.7 0.2.7.3.698 Ho spita .3.846095 084.8 l .8 2022-07-02 2022-07-02 Travel 1.2.840.1 1.2.555.098 1014 863679 Methodi 00:00:00 00:00:[address] 3.430.2.7 0.2.7.3.698 Ho spita .3.338937 084.8 l .8 2022-06-27 2022-06-27 Telephone Gigi, 1.2.840.1 [id number] 307 3035915 Methodi 00:00:00 00:00:[address] 3.430.2.7 Hospit a .3.227138 l .8 2022-06-27 2022-06-27 Telephone Gigi, 1.2.840.1 053745893 410 2590030 Methodi 00:00:00 00:00:[address] 3.430.2.7 Hospit a .3.520539 l .8 2022-06-12 2022-06-12 Office Terry Serra 1.2.840.1 [id number] 293 [id number] Methodi 13:00:00 13:44:[address] E[address] 74027.1.[address] 3.430.2.7 Hospit a .3.227943 l .8 2022-06-12 2022-06-12 Office Terry Serra 1.2.840.1 804710455 181 0929912 Methodi 13:00:00 13:44:[address] E[address] 17290.1.[address] 3.430.2.7 Hospit a .3.039453 l .8 2022-06-11 2022-06-11 [facility], 1.2.840.1 [id number] 2 [id number] Methodi 09:54:59 23:59:00 Encounter Cesar 35524.1.[address] [place] 3.430.2.7 Hospit a .3.249795 l .8 2022-06-11 2022-06-11 Travel 1.2.840.1 1.2.968.842 0505 422372 Methodi 00:00:00 00:00:[address] 3.430.2.7 0.2.7.3.698 Ho spita .3.121839 084.8 l .8 2022-06-11 2022-06-11 [facility], 1.2.840.1 [id number] 2 [id number] [place] 00:00:00 00:00:00 Encounter CESAR 71205.1.1 [address] .3.034325 .8 2022-06-11 2022-06-11 Travel 1.2.840.1 1.2.126.370 7502 914899 Methodi 00:00:00 00:00:[address] 3.430.2.7 0.2.7.3.698 Ho spita .3.592125 084.8 l .8 2022-06-04 2022-06-04 Outpatient TERRY SERRA [facility] 2100 [id number] [place] 00:00:00 00:00:[address] 2022-05-31 2022-05-31 Office Terry Serra 1.2.840.1 [id number] 133 [id number] Methodi 11:40:00 14:26:45 [address] 13785.1.[address] 3.430.2.7 Hospit a .3.862579 l .8 2022-05-31 2022-05-31 Orders Sabino Conner 1.2.840.1 [id number] 149 1352424 Methodi 00:00:00 00:00:[address] 3.430.2.7 Hospit a .3.396463 l .8 2022-05-31 2022-05-31 Travel 1.2.840.1 1.2.885.573 8573 034230 Methodi 00:00:00 00:00:[address] 3.430.2.7 0.2.7.3.698 Ho spita .3.135650 084.8 l .8 2022-05-29 2022-05-29 Orders George, 1.2.840.1 [id number] 21 [id number] Methodi 00:00:00 00:00:00 Only Cesar 10483.1.[address] [place] 3.430.2.7 Hospit a .3.789671 l .8 2022-05-29 2022-05-29 Telephone Desi Connerj 1.2.840.1 137071405 2 [id number] Methodi 00:00:00 00:00:[address] 3.430.2.7 Hospit a .3.717958 l .8 2022-05-24 2022-05-24 Travel 1.2.840.1 1.2.787.010 1124 183344 Methodi 00:00:00 00:00:[address] 3.430.2.7 0.2.7.3.698 Ho spita .3.011822 084.8 l .8 2022-05-16 2022-05-16 Office [facility], Sabino 1.2.840.1 [id number] 807 1532435 Methodi 10:45:00 10:55:[address] 3.430.2.7 Hospit a .3.809749 l .8 2022-05-16 2022-05-16 Travel 1.2.840.1 1.2.317.741 5842 208613 Methodi 00:00:00 00:00:[address] 3.430.2.7 0.2.7.3.698 Ho spita .3.362932 084.8 l .8 2022-04-03 2022-04-03 Office George, 1.2.840.1 [id number] 21 [id number] Methodi 11:00:00 11:20:00 Visit Cesar 82377.1.[address] [place] 3.430.2.7 Hospit a .3.385858 l .8 2022-04-03 2022-04-03 Travel 1.2.840.1 1.2.410.810 0242 663805 Methodi 00:00:00 00:00:[address] 3.430.2.7 0.2.7.3.698 Ho spita .3.658076 084.8 l .8 2022-02-13 2022-02-13 [facility] Adin, 1.2.840.1 [id number] 99965 28977 Methodi 09:05:33 23:59:00 Encounter Beilan E 63792.1.1 947 s t 3.430.2.7 Hospit a .3.924688 l .8 2022-02-13 2022-02-13 [facility] Adin 1.2.840.1 859574532 49669 45063 Methodi 09:01:44 09:04:00 Encounter Beilan E 70020.1.1 318 s t 3.430.2.7 Hospit a .3.156902 l .8 2022-02-13 2022-02-13 [facility] Adin 1.2.840.1 314227535 429649 8763 Methodi 00:00:00 00:00:00 Only Beilan E 25826.1.[address] 3.430.2.7 Hospit a .3.302545 l .8 2022-02-07 2022-02-07 Outpatient ADIN [facility] [id number] 318 [place] 00:00:00 00:00:00 BEILAN [address] 2022-01-18 2022-01-18 Outpatient JULIO CESAR [facility] 90096 76341 [place] 00:00:00 00:00:00 ADAM 159 Method i 2022-01-18 2022-01-18 Outpatient SIFFTERRY [facility] 2100 [id number] [place] 00:00:00 00:00:[address] 2021-11-13 2021-11-13 [facility] 2[facility] [id number] [place] 00:00:00 00:00:00 526 Method i 2021-08-04 2021-08-04 Outpatient DALILA, [facility] 2100 [id number] [place] 00:00:00 00:00:00 551 Method i 2021-07-26 2021-07-26 Outpatient DALILA, [facility] 2100 192800 [place] 00:00:00 00:00:00 019 Method i 2021-07-15 2021-07-15 Letter KASSY [place] 1.2.840.[id number] [place] [address] 00:00:00 00:00:00 (Out) Shannon YOUNGBLOOD 350.1.13.10 it y of [facility] 4.2.7.2.686 James as [id number] [address] 2021-07-13 2021-07-13 Laboratory Only, Ang Db Test [facility] 1.2.8 40.114 [id number] [facility] 20:30:00 20:45:00 Only [place] [facility] 350.1.13.10 ity [facility] 4.2.7.2.686 James as REESE?BLEA [id number] [address] MED[facility] 2021-07-13 2021-07-13 Outpatient Tomy BRANCH [facility] [id number] Univers 20:30:00 20:25:08 SCOTT [facility] 2021-06-05 2021-06-05 Outpatient Tomy DO [facility] [id number] 851 Univers 16:00:00 15:43:55 [place] [facility] 2021-05-16 2021-05-16 Telephone SANDHYA Jenkins 6400 1.2.840.114 12 2001127 [place] 00:00:00 00:00:00 Lj GUPTA 350.1.13.58 Health 9.2.7.2.686 025.5199768 3 2021-05-15 2021-05-15 Telephone Nuria Matta UTP 6400 1.2.84 0.114 [id number] [place] 00:00:00 00:00:[address] 350.1.13.58 Health 9.2.7.2.686 222.6952812 3 2021-05-09 2021-05-09 Outpatient GEORGE [facility] 148 [id number] [place] 00:00:00 00:00:00 CESAR 652 Method i 2021-05-09 2021-05-09 Outpatient GEORGE [facility] 662 [id number] [place] 00:00:00 00:00:00 CESAR [address] 2021-04-21 2021-04-21 EXT [facility] OP Cit[place], EXT MSRDP 1.2.840.114 [id number] [place] 00:00:00 00:00:00 [place] LOCATION 350.1.13.58 H ealth 9.2.7.2.686 [id number] 0 2021-04-21 2021-04-21 EXT [facility] OP Citardi, EXT MSRDP 1.2.840.114 [id number] [place] 00:00:00 00:00:00 [place] LOCATION 350.1.13.58 H ealth 9.2.7.2.686 737.0850753 0 2021-04-19 2021-04-19 Outpatient DALILA, SABINO [facility] 2100 [id number] [place] 00:00:00 00:00:[address] 2021-04-19 2021-04-19 Outpatient SHAYY BANERJEE [facility] 29371 36898 [place] 00:00:00 00:00:[address] 2021-04-18 2021-04-18 Office SANDHYA Jenkins 6400 1.2.512.506 0368 71055 [place] 10:36:19 10:51:[address] 350.1.13.58 Health 9.2.7.2.686 [id number] 3 2021-04-18 2021-04-18 Office SANDHYA Jenkins 6400 1.2.335.416 1740 87094 10:36:19 10:51:19 Visit Lj GUPTA 350.1.13.58 9.2.7.2.686 881.4859646 3 2021-02-15 2021-02-15 Outpatient GEORGE, [facility] 969 [id number] [place] 00:00:00 00:00:00 CESAR 330 Method i 2021-02-15 2021-02-15 Outpatient JASMININ, [facility] 787 [id number] [place] 00:00:00 00:00:00 CESAR 329 Method i 2021-02-07 2021-02-07 Outpatient GEORGE, [facility] 126 [id number] [place] 00:00:00 00:00:00 CESAR 087 Method i 2021-01-31 2021-01-31 Outpatient MANUELITO, [facility] [id number] 809 [place] 00:00:00 00:00:00 SIMON 835 Method i 2021-01-19 2021-01-19 Outpatient FARACH, [facility] [id number] 809 [place] 00:00:00 00:00:00 SIMON 994 Method i 2020-12-14 2020-12-14 Outpatient SHARATH CONNERUJ [facility] 2100 [id number] [place] 00:00:00 00:00:00 133 Method i 2020-11-29 2020-11-29 Outpatient MANUELITO, [facility] [id number] 869 [place] 00:00:00 00:00:00 SIMON 939 Method i 2020-10-11 2020-10-11 Outpatient FARACH, [facility] [id number] 391 [place] 00:00:00 00:00:00 SIMON 382 Method i 2020-10-08 2020-10-08 Outpatient Tomy PASCAL [facility] [id number] 89570 [facility] 10:10:00 10:10:[address] [facility] 2020-09-27 2020-09-27 Outpatient MANUELITO, [facility] [id number] 641 [place] 00:00:00 00:00:00 SIMON [address] 2020-09-27 2020-09-27 Outpatient FARACH, [facility] [id number] 642 [place] 00:00:00 00:00:00 SIMON [address] 2020-09-17 2020-09-17 Outpatient Tomy PASCAL [facility] [id number] 21075 [facility] 10:30:00 10:30:[address] [facility] 2020-08-17 2020-08-17 Outpatient DALILA, SABINO [facility] 2100 [id number] [place] 00:00:00 00:00:[address] 2020-08-17 2020-08-17 Outpatient DALILA, SABINO [facility] 2100 [id number] [place] 00:00:00 00:00:[address] 2020-06-27 2020-06-28 Outpatient MANUELITO, [facility] [id number] 400 [place] 00:00:00 00:00:00 SIMON [address] 2020-06-27 2020-06-27 Outpatient MANUELITO, [facility] [id number] 729 [place] 00:00:00 00:00:00 SIMON 160 Method i 2020-05-16 2020-05-16 Outpatient LARRY Oakley [facility] EUGENIO [id number] [facility] 12:00:00 12:00:00 Becliffn 93 [facility] 2020-05-13 2020-05-13 Outpatient SURJIT LUIS ARMANDO [facility] [id number] [place] 00:00:00 00:00:[address] 2020-04-13 2020-04-13 Outpatient SABINO CONNER [facility] 2100 [id number] [place] 00:00:00 00:00:[address] 2020-04-08 2020-04-08 [id number] [facility] 12:00:00 12:00:00 Beilan 79 [facility] 2020-04-08 2020-04-08 Outpatient MANUELITO, [facility] [id number] 179 [place] 00:00:00 00:00:00 SIMON [address] 2020-03-29 2020-03-29 Outpatient MANUELITO, [facility] [id number] 045 [place] 00:00:00 00:00:00 SIMON [address] 2020-03-24 2020-03-24 Outpatient LUIS ARMANDO EDDY [facility] 021 749 [id number] [place] 00:00:00 00:00:[address] 2020-03-22 2020-03-22 Outpatient FARDARYN, [facility] [id number] [place] 00:00:00 00:00:00 SIMON [address] 2020-03-21 2020-03-21 Outpatient LUIS ARMANDO EDDY [facility] [id number] [place] 00:00:00 00:00:[address] 2020-03-21 2020-03-21 Outpatient SHAYY BANERJEE [facility] [id number] [place] 00:00:00 00:00:[address] 2020-01-14 2020-01-14 Outpatient LUIS ARMANDO EDDY [facility] [id number] [place] 00:00:00 00:00:[address] 2020-01-13 2020-01-13 Outpatient LUIS ARMANDO EDDY [facility] [id number] [place] 00:00:00 00:00:[address] 2019-12-28 2019-12-28 Outpatient FARACH, [facility] [id number] 663 [place] 00:00:00 00:00:00 SIMON [address] [facility] 2019-12-28 2019-12-28 Outpatient FARACH, [facility] [id number] 251 [place] 00:00:00 00:00:00 SIMON [address] 2019-12-28 2019-12-28 Outpatient FARACH, [facility] [id number] 648 [place] 00:00:00 00:00:00 SIMON [address] 2019-12-28 2019-12-28 Outpatient [facility] [id number] 649 [place] 00:00:00 00:00:[address] 2019-12-25 2019-12-26 Outpatient FARACH, [facility] [id number] 251 [place] 00:00:00 00:00:00 SIMON [address] 2019-12-25 2019-12-25 Outpatient [facility] [id number] 564 [place] 00:00:00 00:00:[address] 2019-12-23 2019-12-24 Outpatient FARACH, [facility] [id number] 251 [place] 00:00:00 00:00:00 SIMON [address] 2019-12-23 2019-12-23 Outpatient [facility] [id number] 425 [place] 00:00:00 00:00:[address] 2019-12-21 2019-12-22 Outpatient TEOACH, [facility] [id number] 798 [place] 00:00:00 00:00:00 SIMON [address] 2019-12-17 2019-12-17 Outpatient [facility] [id number] 770 [place] 00:00:00 00:00:[address] 2019-12-17 2019-12-17 Outpatient FARACH, [facility] [id number] 606 [place] 00:00:00 00:00:00 SIMON [address] 2019-12-17 2019-12-17 Outpatient TEOACH, [facility] [id number] 799 [place] 00:00:00 00:00:00 SIMON [address] 2019-12-11 2019-12-11 Outpatient [facility] [id number] 770 [place] 00:00:00 00:00:[address] 2019-12-10 2019-12-11 Outpatient MANUELITO, [facility] [id number] 799 [place] 00:00:00 00:00:00 SIMON [address] 2019-12-10 2019-12-10 Outpatient [facility] [id number] 770 [place] 00:00:00 00:00:[address] 2019-12-09 2019-12-09 Outpatient DALILA, SABINO [facility] [id number] [place] 00:00:00 00:00:[address] 2019-12-09 2019-12-09 Outpatient [facility] [id number] 770 [place] 00:00:00 00:00:[address] 2019-12-08 2019-12-08 Outpatient [facility] [id number] 770 [place] 00:00:00 00:00:[address] 2019-12-04 2019-12-04 Outpatient [facility] [id number] 770 [place] 00:00:00 00:00:[address] 2019-12-03 2019-12-03 Outpatient [facility] [id number] 770 [place] 00:00:00 00:00:[address] 2019-12-03 2019-12-03 Outpatient MANUELITO, [facility] [id number] 799 [place] 00:00:00 00:00:00 SIMON [address] 2019-12-02 2019-12-02 Outpatient [facility] [id number] 770 [place] 00:00:00 00:00:[address] 2019-12-01 2019-12-01 Outpatient [facility] [id number] 770 [place] 00:00:00 00:00:[address] 2019-11-30 2019-11-30 Outpatient [facility] [id number] 770 [place] 00:00:00 00:00:[address] 2019-11-27 2019-11-27 Outpatient [facility] [id number] 770 [place] 00:00:00 00:00:[address] 2019-11-26 2019-11-26 Outpatient [facility] [id number] 770 [place] 00:00:00 00:00:[address] 2019-11-26 2019-11-26 Outpatient MANUELITO, [facility] [id number] 799 [place] 00:00:00 00:00:00 SIMON [address] 2019-11-26 2019-11-26 Outpatient MANUELITO, [facility] [id number] 276 [place] 00:00:00 00:00:00 SIMON [address] 2019-11-25 2019-11-25 Outpatient [facility] [id number] 770 [place] 00:00:00 00:00:[address] 2019-11-24 2019-11-24 Outpatient [facility] [id number] 770 [place] 00:00:00 00:00:[address] 2019-11-23 2019-11-23 Outpatient [facility] [id number] 770 [place] 00:00:00 00:00:[address] 2019-11-20 2019-11-21 Outpatient TEOACH, [facility] [id number] 798 [place] 00:00:00 00:00:00 SIMON [address] 2019-11-20 2019-11-20 Outpatient [facility] [id number] 770 [place] 00:00:00 00:00:[address] 2019-11-19 2019-11-20 Outpatient MANUELITO, [facility] [id number] 799 [place] 00:00:00 00:00:00 SIMON [address] 2019-11-19 2019-11-19 Outpatient [facility] [id number] 940 [place] 00:00:00 00:00:[address] 2019-11-19 2019-11-19 Outpatient [facility] [id number] 770 [place] 00:00:00 00:00:[address] 2019-11-18 2019-11-18 Outpatient [facility] [id number] 770 [place] 00:00:00 00:00:[address] 2019-11-17 2019-11-18 Outpatient FARACH, [facility] [id number] 893 [place] 00:00:00 00:00:00 SIMON [address] 2019-11-17 2019-11-17 Outpatient [facility] [id number] 770 [place] 00:00:00 00:00:[address] 2019-11-16 2019-11-16 Outpatient FARACH, [facility] [id number] 770 [place] 00:00:00 00:00:00 SIMON [address] 2019-11-06 2019-11-07 Outpatient FARACH, [facility] [id number] [place] 00:00:00 00:00:00 SIMON [address] 2019-11-06 2019-11-06 Outpatient FARACH, [facility] [id number] [address] [place] 00:00:00 00:00:00 SIMON [address] 2019-10-29 2019-10-29 Outpatient FARACH, [facility] [id number] [address] [place] 00:00:00 00:00:00 SIMON [address] 2019-10-29 2019-10-29 Outpatient FARACH, [facility] [id number] [address] [place] 00:00:00 00:00:00 SIMON [address] 2019-09-16 2019-09-16 Outpatient DALILA, SABINO [facility] 2100 [id number] [place] 00:00:00 00:00:[address] 2019-08-24 2019-08-25 Outpatient FARACH, [facility] [id number] [place] 00:00:00 00:00:00 SIMON [address] 2019-08-24 2019-08-24 Outpatient FARACH, [facility] [id number] [address] [place] 00:00:00 00:00:00 SIMON [address] 2019-08-04 2019-08-05 Outpatient DALILA, SABINO [facility] 2100 [id number] [place] 00:00:00 00:00:[address] 2019-07-13 2019-07-13 Outpatient SABINO CONNER [facility] 2100 [id number] [place] 00:00:00 00:00:[address] Results Test Description Test Time Test Comments Results Result Comments Source POC creatinine 2022-08-02 19:26:00 Test Item Value Reference Range Interpretation Comme nts POC creatinine (test code = 0.9 mg/dl 0.5-0.9 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 Interpretation is based on recommendations of the National Kidney Foundation-Kidn ey Disease Outcomes Qualit y Initiative (NKF-KDOQI) pub lished in 2014. [facility] [id number] 19:26:00 Test Item Value Reference Range Interpretation Comments POC creatinine (test 0.9 mg/dl 0.5-0.9 Operato r Name: Richard code = 94397-4) Aye Pérez D: [id number] [facility] [id number] 19:26:00 Test Item Value Reference Range Interpretation Comments Estimated GFR (test 74 mL/min/1.73 m2 Caterg ory Units code = 79232-7) Interpretati onG1 >=90 Normal or highG 2 60-89 Mildly decrease dG3a 45-59 Mildly to moder ately rkrupnphqX9e 30 -44 Moderately to s everely decreasedG4 15- 29 Severely decreasedG5 <15 Kidney failureThe eGFR was calculated usin g the Chronic Kidney Disease Epidemiology Co llaboration (CKD-EPI) equat ion. Interpretation is based on recommendations of the National Kidney Foundation-Kidn ey Disease Outcomes Qualit y Initiative (NKF-KDOQI) pub lished in 2014. [facility], [id number] 21:11:00 Test Item Value Reference Range Interpretation Comments Class description Comment Levels of (test code = 0074530) Specif ic IgE Class Descripti on of Class -- ---- - -- --- < 0.10 0 Negative 0.10 - 0.31 0/I Equivocal/Low 0.32 - 0.55 I Low 0.56 - 1.40 II Moderate 1.4 1 - 3.90 III High 3.91 - 19.00 IV Very High 19.01 - 100.00 V Very High >100.00 Very High IgE (test code = 18 See_Comment [Automated 97925-1) message] The system which generated this result [...] Class 0 kU/L (test code = 6020-2) Navarro IgE (test <0.10 Class 0 kU/L code = 7155-5) Allergen silver birch <0.10 Class 0 kU/L (test code = 46608-5) Mountain cedar tree <0.10 Class 0 kU/L (test code = 6178-8) [place] (test code = <0.10 Class 0 kU/L 6189-5) Elm IgE (test code = <0.10 Class 0 kU/L 6109-3) [place] tree (test <0.10 Class 0 kU/L code = 6090-5) White otis tree (test <0.10 Class 0 kU/L code = 6278-6) Pecan/Edwards tree <0.10 Class 0 kU/L IgE (test code = 6209-1) Frost Tree (test <0.10 Class 0 kU/L code [...] ISABEL (test code = ISABEL) Performed at: 01 - [place] [id number] [address] [id number] Director: Familia Ceballos MD, Phone: [phone] Lab Interpretation Abnormal (test code = 24520-5) [facility] [id number] 10:08:00 Test Item Value Reference Range Interpretation Comments CA 125 12.7 U/mL 0.0-38.1 [facility] cs (test code Electrochemilum inescence = 87652-1) Immunoassay (EC GRIFFIN)Values obtained with d ifferent assay methods or kits cannot beused interchangeably . Results cannot be inter preted as absoluteevidenc e of the presence or abs ence of malignant disea se. ISABEL (test Performed at: code = - [facility] ISABEL) [address] [id number] Director: Shawn Fischer MD, Phone: [phone] Nargis GeorgeARS-CoV-2 (COVID-19) RNA [Presence] in Respiratory specimen by JANNY with probe [id number] 23:29:40 Test Item Value Reference Range Interpretation Comments SARS-CoV-2 (COVID-19) RNA Not detected Not-Detected [Presence] in Respiratory specimen by JANNY with probe detection (test code = 42129-1) TRAMAINE BUSH coronavirus 2 RNA [Presence] in Respiratory specimen by JANNY with probe [id number] 13:24:17 Test Item Value Reference Range Interpretation Comments SARS coronavirus 2 RNA Not detected Not-Detected [Presence] in Respiratory specimen by JANNY with probe detection (test code = 00342-7) TRAMAINE KAPOOR
[2023-06-03 08:09] LABS: Absolute Lymphocytes (CBC) 1.5 K/uL (0.7-4.9); Hematocrit 41.5 % (36.0-45.0); Lymphocytes % 14.1 % (15.3-44.8); MCV 89.6 fL (80-100); MPV 8.7 fL (7.6-11.3); Platelets 315 thou/uL (152-406); RBC Red Blood Cell Count 4.63 M/uL (3.86-4.86)
[2023-06-03] MEDS ORDERED: LABETALOL 20 MG/4ML SYRINGE IV ONE (08:09)
[2023-06-03 08:21] LABS: Albumin 3.9 g/dL (3.4-5.0); Bilirubin Direct 0.1 mg/dL (0-0.2); Bilirubin Indirect, Calculated 0.3 mg/dL (0.2-0.8); Bilirubin Total 0.4 mg/dL (0.2-1.0); Magnesium 2.1 mg/dL (1.6-2.4); Potassium 3.5 mEq/L (3.5-5.1); Protein, Total 8.2 g/dL (6.4-8.2); Troponin High Sensitivity 10.1 pg/mL (<58.9)
--- NOTE | 2023-06-03 09:06 | RAD REPORT ---
EXAM DESCRIPTION: [place] Single View06/03/2023 8:39 am CLINICAL HISTORY: PALPITATIONS COMPARISON: CHEST PA AND LAT 2 VIEW dated 02/07/2012; CHEST PA AND LAT 2 VIEW dated 12/04/2010 TECHNIQUE: Portable AP view of the chest. FINDINGS: The lungs are clear. No pneumothorax or effusion. The cardiomediastinal contours are unre markable. IMPRESSION: No acute cardiopulmonary process.
--- NOTE | 2023-06-03 09:36 | EDPHYS ---
Physician Documentation [facility] Name: Sri Fink Age: 52 yrs Sex: Female : 1970 Arrival Date: 06/03/2023 Time: 07:11 Bed 20 Private MD: Logan Rosen ED Physician Louis Bradshaw HPI: 06/03 08:32 This 52 yrs old Female presents to ER via Ambulatory with complaints of Doesn't Feel ms3 Right. 08:32 52-year-old female with past medical history of ovarian/uterine cancer, hypertension ms3 presents for palpitations that are worse when going to sleep. Patient states this has been occurring for the last 1-1/2 months. Patient states the sensation is her heart is racing. Patient states she drinks 1 can of Pepper per day and that is her only caffeine use. Patient does not endorse shortness of breath with her symptoms.. Historical: - Allergies: 07:27 Aspirin; kc6 07:27 Tylenol-Codeine #3; kc6 - PMHx: 07:27 ovarian cancer; allergies; uterine cancer; kc6 - Immunization history:: Client reports receiving the 2nd dose of the Covid vaccine, Flu vaccine is not up to date. - Social history:: Smoking status: Patient denies any tobacco usage or history of. ROS: 08:32 Constitutional: Negative for fever, and chills. Neck: Negative for injury, pain, and ms3 swelling, 08:32 Abdomen/GI: Negative for abdominal pain, nausea, vomiting, diarrhea, and constipation, MS/Extremity: Negative for injury and deformity, Skin: Negative for injury, rash, and discoloration, 08:32 Cardiovascular: Positive for palpitations, 08:32 All other systems are negative, Exam: 08:32 Constitutional: This is a well developed, well nourished patient who is awake, alert, ms3 and in no acute distress. Head/Face: Normocephalic, atraumatic. Neck: Trachea midline, no cervical lymphadenopathy. Supple, full range of motion without nuchal rigidity, or vertebral point tenderness. No Meningismus. Chest/axilla: Normal chest wall appearance and motion. Nontender with no deformity. Cardiovascular: Regular rate and rhythm with a normal S1 and S2. No gallops, murmurs, or rubs. Normal PMI, no JVD. No pulse deficits. Respiratory: Lungs have equal breath sounds bilaterally, clear to auscultation and percussion. No rales, rhonchi or wheezes noted. No increased work of breathing, no retractions or nasal flaring. Abdomen/GI: Soft, non-tender, with normal bowel sounds. No distension or tympany. No guarding or rebound. No evidence of tenderness throughout. Skin: Warm, dry with normal turgor. Normal color with no rashes, no lesions, and no evidence of cellulitis. MS/ Extremity: Pulses equal, no cyanosis. Neurovascular intact. Full, normal range of motion. 08:32 ECG was reviewed by the Attending Physician. ms3 Vital Signs: 07:26 BP 196 / 115; Pulse 78; Resp 16 S; Temp 97.9(TE); Pulse Ox 98% on R/A; Weight 95.25 kg kc6 (R); Height 5 ft. 0 in. (R); 07:53 BP 179 / 107; Pulse 75; Resp 16 S; Pulse Ox 99% on R/A; kc6 08:09 BP 186 / 80; kc6 08:23 BP 164 / 74; Pulse 66; Resp 16 S; Pulse Ox 98% on R/A; kc6 09:28 BP 159 / 80; Pulse 68; Resp 14 S; Pulse Ox 100% on R/A; kc6 07:26 Body Mass Index 41.01 (95.25 kg, 152.4 cm) kc6 MDM: 07:31 Patient medically screened. ms3 08:32 Differential diagnosis: arrythmia, dehydration, stress disorder. Data reviewed: vital ms3 signs, nurses notes, lab test result(s), EKG, radiologic studies, and as a result, I will discharge patient. 09:49 I considered the following discharge prescriptions or medication management in the tx3 emergency department Medications were administered in the Emergency Department. See MAR. Independent interpretation of the following test(s) in the Emergency Department EKG: See my EKG interpretation above X-Ray: My interpretation is CXR image reviewed does not reveal pna. Historians other than the Patient: Spouse/Significant Other: . Care significantly affected by the following chronic conditions: Cancer. Counseling: I had a detailed discussion with the patient and/or guardian regarding the historical points, exam findings, and any diagnostic results supporting the discharge/admit diagnosis, lab results, radiology results, the need for outpatient follow up, to return to the emergency department if symptoms worsen or persist or if there are any questions or concerns that arise at home. ED course: Discussed labs, imaging, EKG with patient. Patient to follow-up with Dr Woody. Patient understands agrees with plan. All questions were answered. Return precautions discussed include worsening symptoms, or any other concerns. On reevaluation patient is alert and oriented x4, no apparent distress, nontoxic-appearing, ambulatory number department, speaking full sentences. 06/03 07:31 Order name: Basic Metabolic Panel; Complete Time: 08:31 ms3 06/03 07:31 Order name: CBC with Diff; Complete Time: 08:31 ms3 06/03 07:31 Order name: D-Dimer; Complete Time: 08:31 ms3 06/03 07:31 Order name: LFT's; Complete Time: 08:31 ms3 06/03 07:31 Order name: Magnesium; Complete Time: 08:31 ms3 06/03 07:31 Order name: NT PRO-BNP; Complete Time: 08:31 ms3 06/03 07:31 Order name: Troponin HS; Complete Time: 08:31 ms3 06/03 07:31 Order name: XRAY Chest (1 view); Complete Time: 09:10 ms3 06/03 07:31 Order name: EKG; Complete Time: 07:32 ms3 06/03 07:31 Order name: Cardiac monitoring; Complete Time: 07:42 ms3 06/03 07:31 Order name: EKG - Nurse/Tech; Complete Time: 07:42 ms3 06/03 07:31 Order name: IV Saline Lock; Complete Time: 07:53 ms3 06/03 07:31 Order name: Labs collected and sent; Complete Time: 07:53 ms3 06/03 07:31 Order name: O2 Per Protocol; Complete Time: 07:42 ms3 06/03 07:31 Order name: O2 Sat Monitoring; Complete Time: 07:42 ms3 EC:32 Rate is 86 beats/min. Rhythm is regular. QRS [place] is Normal. [place] interval is normal. QRS ms3 interval is normal. Clinical impression: Normal ECG. Interpreted by me. Reviewed by me. Administered Medications: 08:00 Drug: Labetalol IV 10 mg IV at calculated rate once Route: IV; Rate: calculated rate; kc6 Site: right forearm; 08:23 Follow up: Response: No adverse reaction; Blood pressure is lowered; IV Status: kc6 Completed infusion; IV Intake: 10ml Disposition Summary: 06/03/23 09:36 Discharge Ordered Notes: Location: Home ms3 Condition: Stable ms3 Diagnosis - Palpitations ms3 - Elevated blood-pressure reading, without diagnosis of hypertension ms3 Followup: ms3 - With: Shoaib Woody MD - When: 2 - 3 days - Reason: Recheck today's complaints Discharge Instructions: - Discharge Summary Sheet ms3 - Palpitations ms3 - DASH Eating Plan ms3 Forms: - Medication Reconciliation Form ms3 - Thank You Letter ms3 - Antibiotic Education ms3 - Prescription Opioid Use ms3 - Patient Portal Instructions ms3 - Leadership Thank You Letter ms3 Prescriptions: - Hydrochlorothiazide 12.5 mg Oral Tablet - take 1 tablet ORAL route once daily; 30 tablet; Refills: 0, Product Selection ms3 Permitted Signatures: Dispatcher [employer] Louis Hernandez DO DO ms3 Jessi Bass, RN RN kc6
--- NOTE | 2023-06-03 09:36 | ER ---
Nurse's Notes [facility] Name: Sri Fink Age: 52 yrs Sex: Female : 1970 Arrival Date: 06/03/2023 Time: 07:11 Bed 20 Private MD: Logan Rosen Diagnosis: Palpitations;Elevated blood-pressure reading, without diagnosis of hypertension Presentation: 06/03 07:26 Chief complaint: Patient states: she hasn't been feeling right for x1mo. reports back kc6 pain, belly pain, chest pain and high blood pressure with sob. Coronavirus screen: At this time, the client does not indicate any symptoms associated with coronavirus-19. Ebola Screen: No symptoms or risks identified at this time. Initial Sepsis Screen: Does the patient meet any 2 criteria? No. Patient's initial sepsis screen is negative. Does the patient have a suspected source of infection? No. Patient's initial sepsis screen is negative. Risk Assessment: Do you want to hurt yourself or someone else? Patient reports no desire to harm self or others. Onset of symptoms was June 03, 2023. 07:26 Method Of Arrival: Ambulatory kc6 07:26 Acuity: OCTAVIO 3 kc6 Triage Assessment: 07:27 General: Appears in no apparent distress. comfortable, Behavior is calm, cooperative, kc6 appropriate for age. Pain: Complains of pain in back, chest and abdomen. EENT: No signs and/or symptoms were reported regarding the EENT system. Neuro: Level of Consciousness is awake, alert, obeys commands, Oriented to person, place, time, situation, Appropriate for age. Cardiovascular: Reports chest pain, Heart tones S1 S2 present Capillary refill < 3 seconds. Respiratory: Reports shortness of breath Airway is patent Trachea midline Respiratory effort is even, unlabored, Respiratory pattern is regular, symmetrical. GI: Reports lower abdominal pain. : No signs and/or symptoms were reported regarding the genitourinary system. Derm: No signs and/or symptoms reported regarding the dermatologic system. Skin is intact, is healthy with good turgor, Skin is pink, warm \T\ dry. Musculoskeletal: No signs and/or symptoms reported regarding the musculoskeletal system. Circulation, motion, and sensation intact. Capillary refill < 3 seconds, Range of motion: intact in all extremities. Historical: - Allergies: 07:27 Aspirin; kc6 07:27 Tylenol-Codeine #3; kc6 - PMHx: 07:27 ovarian cancer; allergies; uterine cancer; kc6 - Immunization history:: Client reports receiving the 2nd dose of the Covid vaccine, Flu vaccine is not up to date. - Social history:: Smoking status: Patient denies any tobacco usage or history of. Screenin:29 [facility] ED Fall Risk Assessment (Adult) History of falling in the last 3 months, kc6 including since admission No falls in past 3 months (0 pts) Confusion or Disorientation No (0 pts) Intoxicated or Sedated No (0 pts) Impaired Gait No (0 pts) Mobility Assist Device Used No (0 pt) Altered Elimination No (0 pt) Score/Fall Risk Level 0 - 2 = Low Risk. Abuse screen: Denies threats or abuse. Denies injuries from another. Nutritional screening: No deficits noted. Tuberculosis screening: No symptoms or risk factors identified. Assessment: 07:29 Reassessment: please see triage assessment. kc6 07:42 Reassessment: olu blum tech at bedside attempting to start and IV and collect labs. kc6 08:24 Reassessment: Patient appears in no apparent distress at this time. No changes from [facility] previously documented assessment. Patient and/or family updated on plan of care and expected duration. Pain level reassessed. Patient is alert, oriented x 3, equal unlabored respirations, skin warm/dry/pink. 09:28 Reassessment: Patient appears in no apparent distress at this time. No changes from [facility] previously documented assessment. Patient and/or family updated on plan of care and expected duration. Pain level reassessed. Patient is alert, oriented x 3, equal unlabored respirations, skin warm/dry/pink. Vital Signs: 07:26 BP 196 / 115; Pulse 78; Resp 16 S; Temp 97.9(TE); Pulse Ox 98% on R/A; Weight 95.25 kg kc6 (R); Height 5 ft. 0 in. (R); 07:53 BP 179 / 107; Pulse 75; Resp 16 S; Pulse Ox 99% on R/A; kc6 08:09 BP 186 / 80; kc6 08:23 BP 164 / 74; Pulse 66; Resp 16 S; Pulse Ox 98% on R/A; kc6 09:28 BP 159 / 80; Pulse 68; Resp 14 S; Pulse Ox 100% on R/A; kc6 07:26 Body Mass Index 41.01 (95.25 kg, 152.4 cm) kc6 ED Course: 07:12 Patient arrived in ED. rg4 07:13 Logan Rosen MD is Private Physician. rg4 07:23 Louis Bradshaw DO is Attending Physician. ms3 07:26 Jessi Bass RN is Primary Nurse. kc6 07:27 Triage completed. kc6 07:27 Arm band placed on. kc6 07:29 Patient has correct armband on for positive identification. Bed in low position. Call kc6 light in reach. Side rails up X 1. Adult w/ patient. Client placed on continuous cardiac and pulse oximetry monitoring. NIBP monitoring applied. vehicle monitor technician on. 07:29 Patient maintains SpO2 saturation greater than 95% on room air. kc6 07:42 Missed attempt(s): 22 gauge in right antecubital area. kc6 07:55 Inserted saline lock: 22 gauge in right wrist, using aseptic technique. Blood ds4 collected. Missed attempt(s): 22 gauge in left forearm. Bleeding controlled, band aid applied, catheter tip intact. 08:41 XRAY Chest (1 view) In Process Unspecified. EDMS 09:34 Shoaib Woody MD is Referral Physician. ms3 09:57 No provider procedures requiring assistance completed. IV discontinued, intact, kc6 bleeding controlled, No redness/swelling at site. Pressure dressing applied. Administered Medications: 08:00 Drug: Labetalol IV 10 mg IV at calculated rate once Route: IV; Rate: calculated rate; kc6 Site: right forearm; 08:23 Follow up: Response: No adverse reaction; Blood pressure is lowered; IV Status: kc6 Completed infusion; IV Intake: 10ml Medication: 09:58 VIS not applicable for this client. kc6 Intake: 08:23 IV: 10ml; Total: 10ml. kc6 Outcome: 09:36 Discharge ordered by . ms3 09:58 Discharged to home ambulatory, with significant other, kc6 09:58 Condition: improved 09:58 Discharge instructions given to patient, Instructed on discharge instructions, follow up and referral plans. medication usage, Demonstrated understanding of instructions, follow-up care, medications, Prescriptions given X 1, 09:58 Patient left the ED. kc6 Signatures: Dispatcher [employer] EDMS Olu Argueta ds4 Nova Donato4 Louis Bradshaw DO DO ms3 Jessi Bass RN RN kc6
[2023-06-03 10:03] VITALS: TEMP 97.9
[2023-06-03 10:10] VITALS: BP 159/80; O2SAT 100
--- NOTE | 2023-06-05 17:31 | EKG ---
Test Date: 2023-06-03 Test Time: 07:38:51 Group Chief Operator: JENNIFER MEASUREMENT RESULTS: Intervals: Rate: 86 CO: 142 QRSD: 80 QT: 382 QTc: 457 [place]: P: 62 CO: 142 QRS: 50 T: 20 INTERPRETIVE STATEMENTS: Normal sinus rhythm Normal ECG Compared to ECG 02/02/2015 16:44:38 No significant changes Electronically Signed On 06-05-23 17:23:47 KENO TERMINAL OPERATOR by Shoaib Woody
== END 2023-06-03 09:58 | disposition home or self-care (01) ==
LOC: ER 07:11
DX: R00.2 Palpitations (principal); R03.0 Elevated blood-pressure reading, without diagnosis of hypertension; Z85.43 Personal history of malignant neoplasm of ovary; Z88.5 Allergy status to narcotic agent
CPT/HCPCS: 36415; 71045; 80048; 80076; 83735; 83880; 84484; 85025; 85379; 93005; 96365; 99285

== ENCOUNTER 2023-07-04 03:36 | Emergency (ER) | payer BC ==
[2023-07-04] MEDS ORDERED: cloNIDine HCL 0.1 MG TAB ONE (04:59)
[2023-07-04 05:00] LABS: Hematocrit 42.5 % (36.0-45.0); Lymphocytes % 16.6 % (15.3-44.8); MCV 89.2 fL (80-100); MPV 8.3 fL (7.6-11.3); Platelets 346 thou/uL (152-406); RBC Red Blood Cell Count 4.77 M/uL (3.86-4.86)
[2023-07-04 05:07] LABS: Potassium 3.1 mEq/L (3.5-5.1)
--- NOTE | 2023-07-04 05:33 | EDPHYS ---
Physician Documentation [facility] Name: Sri Fink Age: 52 yrs Sex: Female : 1970 Arrival Date: 07/04/2023 Time: 03:36 Bed 17 Private MD: Logan Rosen ED Physician Donn Flanagan HPI: 07/04 03:54 This 52 yrs old Female presents to ER via Unassigned with complaints of High sp4 Blood Pressure. 05:15 Very pleasant 53-year-old female with history of allergies, ovarian cancer, uterine sp4 cancer, answer, asthma, hypothyroidism, Glo's thyroiditis, also history of hypertension, presents with elevated blood pressure at home as described 195/103. However patient states that her pressure has been running for quite some time at least since February 2023. Patient's primary care physician is Dr. Rosen and he manages her high blood pressure with HCTZ.. . Historical: - Allergies: 04:12 Aspirin; jw7 04:12 Tylenol-Codeine #3; jw7 - Home Meds: 04:12 Hydrochlorothiazide Oral [Active]; levothyroxine oral [Active]; Ibuprofen Oral jw7 [Active]; Xyzal oral [Active]; - PMHx: 04:12 allergies; ovarian cancer; uterine cancer; Asthma; Hypothyroidism; Hashimotos; Uterine jw7 Cancer; SVT; - PSHx: 04:12 Tonsillectomy; Ear Tubes; Cholecystectomy; Plantar Fasciitis (Left foot); jw7 - Immunization history:: Adult Immunizations up to date, Client reports receiving the 2nd dose of the Covid vaccine, Flu vaccine is not up to date. - Social history:: Smoking status: Patient denies any tobacco usage or history of. Patient/guardian denies using alcohol, street drugs, IV drugs. - Family history:: not pertinent. ROS: 05:16 Constitutional: Negative for fever, chills, and weight loss, sp4 05:16 All other systems are negative, Exam: 05:16 Constitutional: This is a well developed, well nourished patient who is awake, alert, sp4 and in no acute distress. Head/Face: Normocephalic, atraumatic. Eyes: Pupils equal round and reactive to light, extra-ocular motions intact. Lids and lashes normal. Conjunctiva and sclera are not injected. Cornea within normal limits. Periorbital areas with no swelling, redness, or edema. ENT: Nares patent. No nasal discharge, no septal abnormalities noted. Tympanic membranes are normal and external auditory canals are clear. Oropharynx with no redness, swelling, or masses, exudates, or evidence of obstruction, uvula midline. Mucous membranes moist. Neck: Trachea midline, no thyromegaly or masses palpated, and no cervical lymphadenopathy. Supple, full range of motion without nuchal rigidity, or vertebral point tenderness. Chest/axilla: Normal chest wall appearance and motion. Nontender with no deformity. No lesions are appreciated. Cardiovascular: Regular rate and rhythm with a normal S1 and S2. No gallops, murmurs, or rubs. Normal PMI, no JVD. No pulse deficits. Respiratory: Lungs have equal breath sounds bilaterally, clear to auscultation and percussion. No rales, rhonchi or wheezes noted. No increased work of breathing, no retractions or nasal flaring. Abdomen/GI: Soft, non-tender, with normal bowel sounds. No distension or tympany. No guarding or rebound. No evidence of tenderness throughout. Back: No spinal tenderness. No costovertebral tenderness. Skin: Warm, dry with normal turgor. Normal color with no rashes, no lesions, and no evidence of cellulitis. MS/ Extremity: Pulses equal, no cyanosis. Neurovascular intact. Full, normal range of motion. Neuro: Awake and alert, GCS 15, oriented to person, place, time, and situation. Cranial nerves II-XII grossly intact. Motor strength 5/5 in all extremities. Sensory grossly intact. Psych: Awake, alert, with orientation to person, place and time. Behavior, mood, and affect are within normal limits 05:16 ECG was reviewed by the Attending Physician. EKG time 04:46 , normal sinus rhythm, rate sp4 80, normal EKG overall Vital Signs: 04:09 BP 181 / 85; Pulse 86; Resp 18 S; Temp 98.3(O); Pulse Ox 100% on R/A; Weight 99.79 kg; jw7 Height 5 ft. 0 in. ; Pain 0/10; 05:30 BP 168 / 73; Pulse 80; Resp 19 S; Pulse Ox 96% on R/A; jw7 04:09 Body Mass Index 42.97 (99.79 kg, 152.4 cm) jw7 04:09 Pain Scale: Adult jw7 MDM: 04:17 Patient medically screened. sp4 05:16 Differential diagnosis: hypertensive crisis, Malignant HTN, Renovascular hypertension. sp4 Data reviewed: vital signs, nurses notes, lab test result(s), EKG. Consideration of Admission/Observation Escalation of care including admission/observation considered. 05:30 ED course: Blood pressure decreased to 168/73 patient stable for discharge home with sp4 p.o. clonidine twice a day until she can see her primary care physician. Advised follow-up with customer service manager her blood pressure control in the office. . 07/04 04:17 Order name: Basic Metabolic Panel; Complete Time: 05:21 sp4 07/04 04:17 Order name: CBC with Diff; Complete Time: 05:21 sp4 07/04 04:17 Order name: EKG; Complete Time: 04:20 sp4 07/04 04:17 Order name: Cardiac monitoring; Complete Time: 04:21 sp4 07/04 04:17 Order name: EKG - Nurse/Tech; Complete Time: 04:48 sp4 07/04 04:17 Order name: IV Saline Lock; Complete Time: 04:48 sp4 07/04 04:17 Order name: Labs collected and sent; Complete Time: 04:48 sp4 07/04 04:17 Order name: O2 Per Protocol; Complete Time: 04:21 sp4 07/04 04:17 Order name: O2 Sat Monitoring; Complete Time: 04:21 sp4 EC:16 Rate is 80 beats/min. Rhythm is regular, Normal Sinus Rhythm. QRS Butler is Normal. MD sp4 interval is normal. QRS interval is normal. QT interval is normal. No Q waves. T waves are Normal. No ST changes noted. Clinical impression: Normal ECG. Interpreted by me. Reviewed by me. Administered Medications: 04:50 Drug: cloNIDine PO 0.2 mg PO once Route: PO; jw7 06:03 Follow up: Response: No adverse reaction jw7 Disposition Summary: 07/04/23 05:32 Discharge Ordered Problem: new sp4 Symptoms: have improved sp4 Condition: Stable sp4 Diagnosis - Essential (primary) hypertension sp4 - Controlled hypertension sp4 Followup: sp4 - With: Logan Rosen MD - When: 2 - 3 days - Reason: Recheck today's complaints Discharge Instructions: - Discharge Summary Sheet sp4 - Hypertension, Adult sp4 Forms: - Patient Portal Instructions sp4 Prescriptions: - clonidine HCl 0.2 mg Oral tablet - take 1 tablet ORAL route every 12 hours; 60 tablet; Refills: 0, Product sp4 Selection Permitted Signatures: Dispatcher [employer] EDNE Nanette Cobb RN RN jw7 Donn Flanagan MD MD sp4 Corrections: (The following items were deleted from the chart) 05:21 05:16 ECG was reviewed by the Attending Physician. EKG time 511, normal sinus rhythm, sp4 rate 91, normal EKG overall sp4 05:21 05:16 Rate is 91 beats/min. Rhythm is regular, Normal Sinus Rhythm. QRS Butler is Normal. sp4 MD interval is normal. QRS interval is normal. QT interval is normal. No Q waves. T waves are Normal. No ST changes noted. Clinical impression: Normal ECG. Interpreted by me. Reviewed by me. sp4
--- NOTE | 2023-07-04 05:33 | ER ---
Nurse's Notes [facility] Name: Sri Fink Age: 52 yrs Sex: Female : 1970 Arrival Date: 07/04/2023 Time: 03:36 Bed 17 Private MD: Logan Rosen Diagnosis: Essential (primary) hypertension;Controlled hypertension Presentation: 07/04 04:09 Chief complaint: Patient states: I started having high blood pressure this morning. jw7 Coronavirus screen: At this time, the client does not indicate any symptoms associated with coronavirus-19. Ebola Screen: No symptoms or risks identified at this time. Initial Sepsis Screen: Does the patient meet any 2 criteria? No. Patient's initial sepsis screen is negative. Does the patient have a suspected source of infection? No. Patient's initial sepsis screen is negative. Risk Assessment: Do you want to hurt yourself or someone else? Patient reports no desire to harm self or others. Onset of symptoms was July 04, 2023. 04:09 Method Of Arrival: Ambulatory [facility] 04:09 Acuity: OCTAVIO 3 jw7 Triage Assessment: 04:12 General: Appears in no apparent distress. comfortable, Behavior is calm, cooperative. jw7 Pain: Denies pain. EENT: No deficits noted. No signs and/or symptoms were reported regarding the EENT system. Neuro: Mcclain Agitation-Sedation Scale (RASS): 0 - Alert and Calm Level of Consciousness is awake, alert, obeys commands, Oriented to person, place, time, situation. Cardiovascular: Capillary refill < 3 seconds Patient's skin is warm and dry. Respiratory: Airway is patent Trachea midline Respiratory effort is even, unlabored, Respiratory pattern is regular, symmetrical. GI: Abdomen is round non-distended, obese. : No deficits noted. No signs and/or symptoms were reported regarding the genitourinary system. Derm: Skin is intact, is healthy with good turgor, Skin is dry, Skin is normal, Skin temperature is warm. Musculoskeletal: Circulation, motion, and sensation intact. Range of motion: intact in all extremities. Historical: - Allergies: 04:12 Aspirin; jw7 04:12 Tylenol-Codeine #3; jw7 - Home Meds: 04:12 Hydrochlorothiazide Oral [Active]; levothyroxine oral [Active]; Ibuprofen Oral jw7 [Active]; Xyzal oral [Active]; - PMHx: 04:12 allergies; ovarian cancer; uterine cancer; Asthma; Hypothyroidism; Hashimotos; Uterine jw7 Cancer; SVT; - PSHx: 04:12 Tonsillectomy; Ear Tubes; Cholecystectomy; Plantar Fasciitis (Left foot); jw7 - Immunization history:: Adult Immunizations up to date, Client reports receiving the 2nd dose of the Covid vaccine, Flu vaccine is not up to date. - Social history:: Smoking status: Patient denies any tobacco usage or history of. Patient/guardian denies using alcohol, street drugs, IV drugs. - Family history:: not pertinent. Screenin:19 [facility] ED Fall Risk Assessment (Adult) History of falling in the last 3 months, jw7 including since admission No falls in past 3 months (0 pts) Score/Fall Risk Level 0 - 2 = Low Risk Oriented to surroundings, Maintained a safe environment. Abuse screen: Denies threats or abuse. Denies injuries from another. Nutritional screening: No deficits noted. Tuberculosis screening: No symptoms or risk factors identified. Assessment: 04:20 General: See triage assessment. jw7 05:30 Reassessment: Patient appears in no apparent distress at this time. No changes from jw7 previously documented assessment. Patient and/or family updated on plan of care and expected duration. Pain level reassessed. Patient is alert, oriented x 3, equal unlabored respirations, skin warm/dry/pink. Vital Signs: 04:09 BP 181 / 85; Pulse 86; Resp 18 S; Temp 98.3(O); Pulse Ox 100% on R/A; Weight 99.79 kg; jw7 Height 5 ft. 0 in. ; Pain 0/10; 05:30 BP 168 / 73; Pulse 80; Resp 19 S; Pulse Ox 96% on R/A; jw7 04:09 Body Mass Index 42.97 (99.79 kg, 152.4 cm) jw7 04:09 Pain Scale: Adult jw7 ED Course: 03:40 Patient arrived in ED. gm2 03:40 Logan Rosen MD is Private Physician. gm2 03:43 Nanette Cobb, ALTAGRACIA is Primary Nurse. jw7 03:54 Donn Flanagan MD is Attending Physician. sp4 04:12 Triage completed. jw7 04:12 Arm band placed on. jw7 04:19 Patient has correct armband on for positive identification. Bed in low position. Call zoie light in reach. Side rails up X 1. 04:49 Initial lab(s) drawn, by me, sent to lab. EKG done, by ED staff, reviewed by Donn Flanagan MD. Inserted saline lock: 22 gauge in left antecubital area, using aseptic technique. Blood collected. 05:32 Logan Rosen MD is Referral Physician. sp4 06:01 No provider procedures requiring assistance completed. IV discontinued, intact, jw7 bleeding controlled, No redness/swelling at site. Pressure dressing applied. 06:02 Provided Education on: discharge instructions and medication usage. jw7 Administered Medications: 04:50 Drug: cloNIDine PO 0.2 mg PO once Route: PO; jw7 06:03 Follow up: Response: No adverse reaction jw7 Medication: 06:02 VIS not applicable for this client. jw7 Outcome: 05:32 Discharge ordered by . sp4 06:01 Discharged to home ambulatory, jw7 06:01 Condition: stable 06:01 Discharge instructions given to patient, Instructed on discharge instructions, follow up and referral plans. medication usage, Demonstrated understanding of instructions, follow-up care, medications, Prescriptions given X 1, 06:04 Patient left the ED. jw7 Signatures: Nanette Cobb RN RN Donn Ryan MD MD sp4 Kianna Nicole 2
[2023-07-04 09:05] VITALS: TEMP 98.3
[2023-07-04 09:12] VITALS: BP 168/73; O2SAT 96
--- NOTE | 2023-07-05 15:23 | EKG ---
Test Date: 2023-07-04 Test Time: 04:46:05 Vaccine Key Customer Leader: LU MEASUREMENT RESULTS: Intervals: Rate: 80 OK: 144 QRSD: 82 QT: 402 QTc: 463 Moose: P: 64 OK: 144 QRS: 60 T: 38 INTERPRETIVE STATEMENTS: Normal sinus rhythm ST abnormality, possible digitalis effect Abnormal ECG Compared to ECG 07/04/2023 04:45:30 No significant changes Electronically Signed On 07-05-23 15:20:09 PHOTO ENGRAVER by Shoaib Woody
--- NOTE | 2023-07-05 15:23 | EKG ---
Test Date: 2023-07-04 Test Time: 04:45:30 Water Filterer Helper: LU MEASUREMENT RESULTS: Intervals: Rate: 84 AZ: 140 QRSD: 84 QT: 386 QTc: 456 [place]omeroy: P: 65 AZ: 140 QRS: 62 T: 27 INTERPRETIVE STATEMENTS: Normal sinus rhythm ST abnormality, possible digitalis effect Abnormal ECG Compared to ECG 06/03/2023 07:38:51 ST (T wave) deviation now present Electronically Signed On 07-05-23 15:20:11 DRILLING SUPERVISOR by Shoaib Woody
== END 2023-07-04 06:04 | disposition home or self-care (01) ==
LOC: ER 03:36
DX: I10 Essential (primary) hypertension (principal); Z88.5 Allergy status to narcotic agent; Z88.6 Allergy status to analgesic agent
CPT/HCPCS: 36415; 80048; 85025; 93005; 99284

== ENCOUNTER → 2023-07-10 | Emergency (ER) | payer BC ==
--- NOTE | 2023-07-10 05:37 | ER ---
Nurse's Notes [facility] Name: Sri Fink Age: 52 yrs Sex: Female : 1970 Arrival Date: 07/10/2023 Time: 03:08 Bed 20 Private MD: Diagnosis: Anxiety disorder, unspecified;Anxiety about health , Elevated blood pressure reading Presentation: 07/10 03:17 Chief complaint: Patient states: my BP was 173/95 at home but i forgot the numbers and lg3 im at my max dose of HTN medications. i was here a few days ago and they think i had a stroke. i went to [place] and spent 2 nights. i just got back home yesterday. if i don't come in fast my BP will go too high and i cant go back to [place]. im taking everything and its not working. this is like the 5th time and im just trying to hold on to everything. i see my PCP on morning but my medicines arent working. my heart wakes me up and i have to check my pressure. Coronavirus screen: At this time, unable to obtain information related to travel outside the [place] At this time, the client does not indicate any symptoms associated with coronavirus-19. Ebola Screen: No symptoms or risks identified at this time. Initial Sepsis Screen: Does the patient meet any 2 criteria? No. Patient's initial sepsis screen is negative. Does the patient have a suspected source of infection? No. Patient's initial sepsis screen is negative. Risk Assessment: Do you want to hurt yourself or someone else? Patient reports no desire to harm self or others. Onset of symptoms is unknown. 03:17 Method Of Arrival: Ambulatory lg3 03:17 Acuity: OCTAVIO 4 lg3 Triage Assessment: 03:21 General: Appears in no apparent distress. Behavior is anxious. Pain: Denies pain. EENT: lg3 No deficits noted. No signs and/or symptoms were reported regarding the EENT system. Neuro: No deficits noted. Level of Consciousness is awake, alert, obeys commands, Oriented to person, place, time, situation. Cardiovascular: No deficits noted. Respiratory: No deficits noted. Airway is patent Respiratory effort is even, unlabored, Respiratory pattern is regular, symmetrical. GI: No deficits noted. No signs and/or symptoms were reported involving the gastrointestinal system. : No deficits noted. No signs and/or symptoms were reported regarding the genitourinary system. Derm: No deficits noted. No signs and/or symptoms reported regarding the dermatologic system. Skin is intact, is healthy with good turgor, Skin is dry, Skin is normal, Skin temperature is warm. Musculoskeletal: No deficits noted. No signs and/or symptoms reported regarding the musculoskeletal system. Circulation, motion, and sensation intact. Range of motion: intact in all extremities. 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 - Social history:: Smoking status: Patient denies any tobacco usage or history of. Patient/guardian denies using alcohol, street drugs. - Family history:: not pertinent. Screenin:29 [facility] ED Fall Risk Assessment (Adult) History of falling in the last 3 months, jw7 including since admission No falls in past 3 months (0 pts) Score/Fall Risk Level 0 - 2 = Low Risk Oriented to surroundings, Maintained a safe environment. Abuse screen: Denies threats or abuse. Denies injuries from another. Nutritional screening: No deficits noted. Tuberculosis screening: No symptoms or risk factors identified. Assessment: 03:31 General: see triage assessment. jw7 04:22 Reassessment: Patient appears in no apparent distress at this time. No changes from jw7 previously documented assessment. Patient and/or family updated on plan of care and expected duration. Pain level reassessed. Patient is alert, oriented x 3, equal unlabored respirations, skin warm/dry/pink. 05:13 Reassessment: Patient appears in no apparent distress at this time. No changes from jw7 previously documented assessment. Patient and/or family updated on plan of care and expected duration. Pain level reassessed. Patient is alert, oriented x 3, equal unlabored respirations, skin warm/dry/pink. Vital Signs: 03:17 BP 119 / 80; Pulse 79; Resp 17 S; Temp 98.2; Pulse Ox 99% on R/A; Weight 96.16 kg (R); lg3 Height 5 ft. 0 in. (R); 04:15 BP 112 / 71; Pulse 71; Resp 16 S; Pulse Ox 98% on R/A; jw7 05:10 BP 100 / 59; Pulse 57; Resp 18 S; Pulse Ox 97% on R/A; jw7 03:17 Body Mass Index 41.40 (96.16 kg, 152.4 cm) lg3 ED Course: 03:11 Patient arrived in ED. jj6 03:21 Triage completed. lg3 03:21 Arm band placed on right wrist. lg3 03:28 Nanette Cobb, RN is Primary Nurse. jw7 03:29 Patient has correct armband on for positive identification. Bed in low position. Call [facility] light in reach. 03:33 Donn Flanagan MD is Attending Physician. sp4 04:05 EKG done, by ED staff, reviewed by Donn Flanagan MD. jw7 04:26 No provider procedures requiring assistance completed. jw7 06:04 Patient did not have IV access during this emergency room visit. nw1 Administered Medications: No medications were administered Medication: 04:26 VIS not applicable for this client. jw7 Outcome: 05:37 Discharge ordered by . sp4 06:04 Discharged to home ambulatory, nw1 06:04 Condition: stable 06:04 Discharge instructions given to patient, Instructed on discharge instructions, Demonstrated understanding of instructions, 06:04 Patient left the ED. nw1 Signatures: Patricia Xiong RN ALTAGRACIA 3 Leana Beltran j6 Nanette Cobb, ALTAGRACIA FRIAS jw7 Donn Flanagan MD MD sp4 Monica Mcgill RN RN nw1 Corrections: (The following items were deleted from the chart) 03:23 03:17 Chief complaint: Patient states: my BP was 173/95 at home but i forgot the lg3 numbers and im at my max dose of HTN medications. i was here a few days ago and they think i had a stroke. i went to [place] and spent 2 nights. i just got back home yesterday. if i don't come in fast my BP will go too high and i cant go back to [place]. im taking everything and its not working. this is like the 5th time and im just trying to hold on to everything. i see my PCP on morning but my medicines arent working. my heart wakes me up and i have to check my pressure. lg3 03:23 03:17 BP 144 / 78; Pulse 79bpm; Resp 17bpm; Spontaneous; Pulse Ox 99% RA; Temp 98.2F; lg3 96.16 kg Reported; Height 5 ft. 0 in. Reported; BMI: 41.4; lg3
--- NOTE | 2023-07-10 05:37 | EDPHYS ---
Physician Documentation [facility] Name: Sri Fink Age: 52 yrs Sex: Female : 1970 Arrival Date: 07/10/2023 Time: 03:08 Bed 20 Private MD: ED Physician Donn Flanagan HPI: 07/10 03:34 This 52 yrs old Female presents to ER via Ambulatory with complaints of High sp4 Blood Pressure, Anxiety. 05:07 Patient was seen here on 07/06/2023, also on 07/04/2023. sp4 05:08 Patient was evaluated for elevated blood pressure on 07/04/2023 and prescribed sp4 clonidine twice a day. Patient was here again on 07/06/2023 at that time she was transferred to [facility] for further evaluation. . 05:09 Today patient states she has a racing heart rate, she is feeling unwell, and she has sp4 had elevated blood pressure at home. . 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 - Social history:: Smoking status: Patient denies any tobacco usage or history of. Patient/guardian denies using alcohol, street drugs. - Family history:: not pertinent. ROS: 05:09 Constitutional: Negative for fever, chills, and weight loss, positive racing heart sp4 rate, positive elevated blood pressure, positive for feeling unwell. Eyes: Negative for injury, pain, redness, and discharge, 05:09 All other systems are negative, Exam: 05:09 Constitutional: This is a well developed, well nourished patient who is awake, alert, sp4 and in no acute distress. Anxious appearing female Head/Face: Normocephalic, atraumatic. Eyes: Pupils equal round and reactive to light, extra-ocular motions intact. Lids and lashes normal. Conjunctiva and sclera are not injected. Cornea within normal limits. Periorbital areas with no swelling, redness, or edema. ENT: Nares patent. No nasal discharge, no septal abnormalities noted. Tympanic membranes are normal and external auditory canals are clear. Oropharynx with no redness, swelling, or masses, exudates, or evidence of obstruction, uvula midline. Mucous membranes moist. Neck: Trachea midline, no thyromegaly or masses palpated, and no cervical lymphadenopathy. Supple, full range of motion without nuchal rigidity, or vertebral point tenderness. Chest/axilla: Normal chest wall appearance and motion. Nontender with no deformity. No lesions are appreciated. Cardiovascular: Regular rate and rhythm with a normal S1 and S2. No gallops, murmurs, or rubs. Normal PMI, no JVD. No pulse deficits. Respiratory: Lungs have equal breath sounds bilaterally, clear to auscultation and percussion. No rales, rhonchi or wheezes noted. No increased work of breathing, no retractions or nasal flaring. Abdomen/GI: Soft, non-tender, with normal bowel sounds. No distension or tympany. No guarding or rebound. No evidence of tenderness throughout. Back: No spinal tenderness. No costovertebral tenderness. Skin: Warm, dry with normal turgor. Normal color with no rashes, no lesions, and no evidence of cellulitis. MS/ Extremity: Pulses equal, no cyanosis. Neurovascular intact. Full, normal range of motion. Neuro: Awake and alert, GCS 15, oriented to person, place, time, and situation. Cranial nerves II-XII grossly intact. Motor strength 5/5 in all extremities. Sensory grossly intact. Psych: Awake, alert, with orientation to person, place and time. Behavior, mood, and affect are within normal limits 05:09 ECG was reviewed by the Attending Physician. EKG time 0 359, normal sinus rhythm with a rate of 62, normal EKG Vital Signs: 03:17 BP 119 / 80; Pulse 79; Resp 17 S; Temp 98.2; Pulse Ox 99% on R/A; Weight 96.16 kg (R); lg3 Height 5 ft. 0 in. (R); 04:15 BP 112 / 71; Pulse 71; Resp 16 S; Pulse Ox 98% on R/A; jw7 05:10 BP 100 / 59; Pulse 57; Resp 18 S; Pulse Ox 97% on R/A; jw7 03:17 Body Mass Index 41.40 (96.16 kg, 152.4 cm) lg3 MDM: 03:51 Patient medically screened. sp4 05:39 Differential diagnosis: hypertensive crisis, anxiety about health. Data reviewed: vital sp4 signs, nurses notes, EKG. ED course: Patient was explained strategy for blood pressure checks at home which is once every morning on awakening and once before bedtime in the evening . She was advised not to check her blood pressure throughout the daytime as this will cause unnecessary anxiety and will produce blood pressure readings that are not consistent. She was advised to take all of her medications as prescribed. Patient was advised to see her primary care physician in 7 to 10 days for further consultation on blood pressure management . . 07/10 03:50 Order name: EKG; Complete Time: 03:51 sp4 07/10 03:50 Order name: EKG - Nurse/Tech; Complete Time: 04:06 sp4 EC:09 Rate is 62 beats/min. Rhythm is regular, Normal Sinus Rhythm. QRS [place] is Normal. [place] sp4 interval is normal. QRS interval is normal. QT interval is normal. No Q waves. T waves are Normal. No ST changes noted. Clinical impression: Normal ECG. Interpreted by me. Reviewed by me. Administered Medications: No medications were administered Disposition Summary: 07/10/23 05:37 Discharge Ordered Problem: new sp4 Symptoms: have improved sp4 Condition: Stable sp4 Diagnosis - Anxiety disorder, unspecified sp4 - Anxiety about health , Elevated blood pressure reading sp4 Followup: sp4 - With: Private Physician - When: 7 - 10 days - Reason: Recheck today's complaints Discharge Instructions: - Discharge Summary Sheet sp4 - Hypertension, Adult, [id number] sp4 Forms: - Patient Portal Instructions sp4 Signatures: Patricia Xiong RN RN lg3 Donn Flanagan MD MD sp4
[2023-07-10 08:01] VITALS: TEMP 98.2
[2023-07-10 08:07] VITALS: BP 100/59; O2SAT 97
--- NOTE | 2023-07-10 12:49 | EKG ---
Test Date: 2023-07-10 Test Time: 03:59:51 Dentistry Teacher: ALEK MEASUREMENT RESULTS: Intervals: Rate: 62 MO: 148 QRSD: 96 QT: 410 QTc: 416 [place]: P: 44 MO: 148 QRS: 48 T: 20 INTERPRETIVE STATEMENTS: Normal sinus rhythm Nonspecific T wave abnormality Abnormal ECG Compared to ECG 07/06/2023 04:43:21 T-wave abnormality now present ST (T wave) deviation no longer present Possible ischemia no longer present Electronically Signed On 07-10-23 12:48:43 INTERNAL CARVER by Shoaib Woody
== END ==
LOC: ER 03:08
DX: F41.9 Anxiety disorder, unspecified (principal); R03.0 Elevated blood-pressure reading, without diagnosis of hypertension; Z88.5 Allergy status to narcotic agent; Z88.6 Allergy status to analgesic agent
CPT/HCPCS: 93005; 99283

== ENCOUNTER → 2023-07-31 | Emergency (ER) | payer BC ==
--- NOTE | 2023-07-31 18:39 | RAD REPORT ---
EXAM DESCRIPTION: [place] Single View07/31/2023 6:18 pm CLINICAL HISTORY: Hypertension COMPARISON: June 2023 FINDINGS: The lungs appear clear of acute infiltrate. The heart is normal size IMPRESSION: No acute abnormalities displayed
[2023-07-31 19:32] LABS: Absolute Lymphocytes (CBC) 3.3 K/uL (0.7-4.9); Hematocrit 42.8 % (36.0-45.0); MCV 90.2 fL (80-100); MPV 8.7 fL (7.6-11.3); Platelets 373 thou/uL (152-406); RBC Red Blood Cell Count 4.75 M/uL (3.86-4.86)
[2023-07-31 20:26] LABS: Protime INR 1.22
[2023-07-31 20:36] LABS: Bilirubin Direct 0.2 mg/dL (0-0.2); Bilirubin Indirect, Calculated 0.3 mg/dL (0.2-0.8); Bilirubin Total 0.5 mg/dL (0.2-1.0); Magnesium 1.9 mg/dL (1.6-2.4); Protein, Total 8.6 g/dL (6.4-8.2); Thyroid Stimulating Hormone 2.02 uIU/mL (0.358-3.740); Troponin High Sensitivity 6.7 pg/mL (<58.9)
--- NOTE | 2023-07-31 21:05 | ER ---
Nurse's Notes [facility] Name: Sri Fink Age: 52 yrs Sex: Female : 1970 Arrival Date: 07/31/2023 Time: 17:19 Bed 4 Private MD: Diagnosis: Weakness;Hypokalemia Presentation: 07/31 17:31 Chief complaint: Patient states: PATIENT STATES HAS LOW BP LOW POTASSIUM AND DIZZINESS db WITH FEELING LIKE IS GOING TO PASS OUT. Coronavirus screen: Client denies travel out of the [place] in the last 14 days. At this time, the client does not indicate any symptoms associated with coronavirus-19. Ebola Screen: Patient negative for fever greater than or equal to 101.5 degrees Fahrenheit, and additional compatible Ebola Virus Disease symptoms Patient denies exposure to infectious person. Patient denies travel to an Ebola-affected area in the 21 days before illness onset. No symptoms or risks identified at this time. Initial Sepsis Screen: Does the patient meet any 2 criteria? No. Patient's initial sepsis screen is negative. Does the patient have a suspected source of infection? No. Patient's initial sepsis screen is negative. Risk Assessment: Do you want to hurt yourself or someone else? Patient reports no desire to harm self or others. Onset of symptoms was July 31, 2023. 17:31 Method Of Arrival: Ambulatory db 17:31 Acuity: OCTAVIO 2 db Triage Assessment: 17:33 General: Appears in no apparent distress. comfortable, Behavior is calm, cooperative. db Pain: Denies pain. Neuro: Level of Consciousness is awake, alert, obeys commands, Oriented to person, place, time, situation. Respiratory: Airway is patent Respiratory effort is even, unlabored, Respiratory pattern is regular, symmetrical. Historical: - Allergies: 17:32 Aspirin; db 17:32 Tylenol-Codeine #3; db - Home Meds: 17:32 Hydrochlorothiazide Oral [Active]; levothyroxine oral [Active]; db - PMHx: 17:33 allergies; Hashimotos; Asthma; ovarian cancer; Hypothyroidism; SVT; uterine cancer; db uterine cancer; - PSHx: 17:33 ear tubes; Plantar Fasciitis (Left foot); Tonsillectomy; Cholecystectomy; Total db abdominal hysterectomy; - Immunization history:: Adult Immunizations unknown. - Social history:: Smoking status: Patient denies any tobacco usage or history of. Screenin:05 [facility] ED Fall Risk Assessment (Adult) History of falling in the last 3 months, ld1 including since admission No falls in past 3 months (0 pts). Abuse screen: Denies threats or abuse. Denies injuries from another. Nutritional screening: No deficits noted. Tuberculosis screening: No symptoms or risk factors identified. Assessment: 18:05 General: Appears in no apparent distress. uncomfortable, Behavior is cooperative, ld1 anxious. Pain: Denies pain. Neuro: Level of Consciousness is awake, alert, obeys commands, Oriented to person, place, time, situation. Cardiovascular: Capillary refill < 3 seconds Patient's skin is warm and dry. Rhythm is sinus rhythm. Respiratory: Airway is patent Respiratory effort is even, unlabored. GI: Abdomen is round non-distended. : No signs and/or symptoms were reported regarding the genitourinary system. EENT: No signs and/or symptoms were reported regarding the EENT system. Derm: No signs and/or symptoms reported regarding the dermatologic system. Musculoskeletal: No signs and/or symptoms reported regarding the musculoskeletal system. 19:00 Reassessment: Patient appears in no apparent distress at this time. Patient and/or jb4 family updated on plan of care and expected duration. Pain level reassessed. Patient is alert, oriented x 3, equal unlabored respirations, skin warm/dry/pink. 20:17 Reassessment: Patient appears in no apparent distress at this time. Patient and/or jb4 family updated on plan of care and expected duration. Pain level reassessed. Patient is alert, oriented x 3, equal unlabored respirations, skin warm/dry/pink. 21:15 Reassessment: Patient appears in no apparent distress at this time. Patient and/or jw7 family updated on plan of care and expected duration. Pain level reassessed. Patient is alert, oriented x 3, equal unlabored respirations, skin warm/dry/pink. Patient states feeling better. Vital Signs: 17:31 BP 118 / 86; Pulse 97; Resp 18; Temp 97.5; Pulse Ox 100% on R/A; db 18:05 BP 140 / 61; Pulse 66; Resp 16; Pulse Ox 99% on R/A; ld1 19:32 BP 120 / 62 RA Supine (auto/reg); Pulse 66; Resp 16; Pulse Ox 100% on R/A; jb4 19:33 BP 126 / 72 RA Sitting (auto/reg); Pulse 65; Resp 16; Pulse Ox 99% on R/A; jb4 19:34 BP 107 / 68 RA Standing (auto/reg); Pulse 64; Resp 18; Pulse Ox 100% on R/A; jb4 21:16 BP 130 / 64; Pulse 67; Resp 20 S; Pulse Ox 96% on R/A; jw7 ED Course: 17:23 Patient arrived in ED. mg5 17:28 Julián Britton MD is Attending Physician. sp3 17:32 Triage completed. db 17:33 Arm band placed on right wrist. Patient placed in waiting room. db 18:05 Patient has correct armband on for positive identification. Placed in gown. Bed in low ld1 position. Call light in reach. Side rails up X2. ekg monitor on. Pulse ox on. NIBP on. Door closed. Noise minimized. 18:05 No provider procedures requiring assistance completed. Missed attempt(s): 22 gauge in ld1 right forearm. 18:07 Mary Bradshaw, RN is Primary Nurse. ld1 18:20 XRAY Chest (1 view) In Process Unspecified. EDMS 19:24 Troponin HS Sent. as6 19:24 PT-INR Sent. as6 19:24 NT PRO-BNP Sent. as6 19:24 Magnesium Sent. as6 19:24 LFT's Sent. as6 19:24 CBC with Diff Sent. as6 19:24 Basic Metabolic Panel Sent. as6 19:24 TSH Sent. as6 20:06 Inserted saline lock: 20 gauge in right antecubital area, using aseptic technique. as6 Blood collected. ultrasound guided, long catheter. 20:46 Attending Physician role handed off by Julián Britton MD gb1 20:46 Sarika West MD is Attending Physician. gb1 21:04 Shoaib Woody MD is Referral Physician. gb1 21:16 IV discontinued, intact, bleeding controlled, No redness/swelling at site. Pressure jw7 dressing applied. 21:17 Provided Education on: discharge instructions. jw7 Administered Medications: No medications were administered Medication: 18:05 VIS not applicable for this client. ld1 Outcome: 21:04 Discharge ordered by . arpita 21:16 Discharged to home ambulatory, jw7 21:16 Condition: stable 21:16 Discharge instructions given to patient, Instructed on discharge instructions, follow up and referral plans. medication usage, Demonstrated understanding of instructions, follow-up care, medications, Prescriptions given X 1, 21:17 Patient left the ED. jw7 Signatures: Dispatcher [employer] EDMS Darien Montejo, RN RN jb4 Mary Bradshaw RN RN ld1 Julián Britton MD MD sp3 Eric Clark RN RN as6 Nanette Cobb RN RN jw7 Cate Michaud RN RN Rosangela Grimes mg5 Sarika West MD MD gb1
--- NOTE | 2023-07-31 21:05 | EDPHYS ---
Physician Documentation [facility] Name: Sri Fink Age: 52 yrs Sex: Female : 1970 Arrival Date: 07/31/2023 Time: 17:19 Bed 4 Private MD: ED Physician Sarika West HPI: 07/31 17:51 This 52 yrs old Female presents to ER via Ambulatory with complaints of Low BP, sp3 Dizziness, Abnormal Lab Results. 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 She had outpatient labs which demonstrated hypokalemia to which Dr. Rosen her PCP prescribed some potassium which she was unable to fill due to time constraints. Today she had the above symptoms and presents to the ED for evaluation. She denies headache, fever, cough, congestion, neck pain, chest pain, back pain, abdominal pain, nausea, vomiting, diarrhea, weight loss, night sweats, known sick contacts, travel history, or any other signs or symptoms on ROS at this time.. Historical: - Allergies: 17:32 Aspirin; db 17:32 Tylenol-Codeine #3; db - Home Meds: 17:32 Hydrochlorothiazide Oral [Active]; levothyroxine oral [Active]; db - PMHx: 17:33 allergies; Hashimotos; Asthma; ovarian cancer; Hypothyroidism; SVT; uterine cancer; db uterine cancer; - PSHx: 17:33 ear tubes; Plantar Fasciitis (Left foot); Tonsillectomy; Cholecystectomy; Total db abdominal hysterectomy; - Immunization history:: Adult Immunizations unknown. - Social history:: Smoking status: Patient denies any tobacco usage or history of. ROS: 17:52 Constitutional: Negative for fever, chills, and weight loss, Eyes: Negative for injury, sp3 pain, redness, and discharge, ENT: Negative for injury, pain, and discharge, Neck: Negative for injury, pain, and swelling, Abdomen/GI: Negative for abdominal pain, nausea, vomiting, diarrhea, and constipation, Back: Negative for injury and pain, MS/Extremity: Negative for injury and deformity, Skin: Negative for injury, rash, and discoloration, Neuro: Negative for headache, weakness, numbness, tingling, and seizure, Psych: Negative for depression, anxiety, suicide ideation, homicidal ideation, and hallucinations, Allergy/Immunology: Negative for hives, rash, and allergies, 17:52 All other systems are negative, Exam: 17:53 Constitutional: This is a well developed, well nourished patient who is awake, alert, sp3 and in no acute distress. Head/Face: Normocephalic, atraumatic. Eyes: Pupils equal round and reactive to light, extra-ocular motions intact. Lids and lashes normal. Conjunctiva and sclera are non-icteric and not injected. Cornea within normal limits. Periorbital areas with no swelling, redness, or edema. ENT: Nares patent. No nasal discharge, no septal abnormalities noted. External auditory canals are clear. Oropharynx with no redness, swelling, or masses, exudates, or evidence of obstruction, uvula midline. Mucous membranes moist. Neck: Trachea midline, no thyromegaly or masses palpated, and no cervical lymphadenopathy. Supple, full range of motion without nuchal rigidity, or vertebral point tenderness. No Meningismus. Chest/axilla: Normal chest wall appearance and motion. Nontender with no deformity. No lesions are appreciated. Cardiovascular: Regular rate and rhythm with a normal S1 and S2. No gallops, murmurs, or rubs. Normal PMI, no JVD. No pulse deficits. Respiratory: Lungs have equal breath sounds bilaterally, clear to auscultation and percussion. No rales, rhonchi or wheezes noted. No increased work of breathing, no retractions or nasal flaring. Abdomen/GI: Soft, non-tender, with normal bowel sounds. No distension or tympany. No guarding or rebound. No evidence of tenderness throughout. Back: No spinal tenderness. No costovertebral tenderness. Full range of motion. Skin: Warm, dry with normal turgor. Normal color with no rashes, no lesions, and no evidence of cellulitis. MS/ Extremity: Pulses equal, no cyanosis. Neurovascular intact. Full, normal range of motion. Neuro: Awake and alert, GCS 15, oriented to person, place, time, and situation. Cranial nerves II-XII grossly intact. Motor strength 5/5 in all extremities. Sensory grossly intact. Cerebellar exam normal. Normal gait. Psych: Awake, alert, with orientation to person, place and time. Behavior, mood, and affect are within normal limits. 17:53 ECG was reviewed by the Attending Physician. EKG demonstrates normal sinus rhythm at 72 bpm with normal intervals, normal QRS, normal axis, nonspecific diffuse ST's ST changes without evidence of acute ischemia. Vital Signs: 17:31 BP 118 / 86; Pulse 97; Resp 18; Temp 97.5; Pulse Ox 100% on R/A; db 18:05 BP 140 / 61; Pulse 66; Resp 16; Pulse Ox 99% on R/A; ld1 19:32 BP 120 / 62 RA Supine (auto/reg); Pulse 66; Resp 16; Pulse Ox 100% on R/A; jb4 19:33 BP 126 / 72 RA Sitting (auto/reg); Pulse 65; Resp 16; Pulse Ox 99% on R/A; jb4 19:34 BP 107 / 68 RA Standing (auto/reg); Pulse 64; Resp 18; Pulse Ox 100% on R/A; jb4 21:16 BP 130 / 64; Pulse 67; Resp 20 S; Pulse Ox 96% on R/A; jw7 MDM: 17:41 Patient medically screened. sp3 17:55 Data reviewed: vital signs, nurses notes, lab test result(s), EKG, radiologic studies. sp3 ED course: 52-year-old female with PMH above and generalized weakness and chest tightness. Differential diagnosis includes acute coronary syndrome, viral syndrome, electrolyte abnormality, hypokalemia, among others. I am not highly suspicious for sepsis, shock, vascular pathology including dissection or aneurysm, GI pathology, or any other critical pathology at this time. Workup will include EKG which is already been done, chest x-ray and general laboratory values including troponin and TSH. Disposition pending workup and patient course.. 19:48 ED course: Blood that was finally obtained with ultrasound is found to be hemolyzed by sp3 the lab. We will retry obtaining blood and patient will be signed out to night physician Dr. West for final reevaluation and disposition.. 20:59 ED course: I received this patient in turnover from Dr. Britton at 2000 pending labs. gb1 There is a mild hypokalemia, will rx PO Kdur. 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 Pts questions answered prior to d/c home and she is compliant with return precautions. . 07/31 17:35 Order name: Basic Metabolic Panel; Complete Time: 20:46 3 07/31 17:35 Order name: CBC with Diff; Complete Time: 20:07 3 07/31 17:35 Order name: LFT's; Complete Time: 20:46 3 07/31 17:35 Order name: Magnesium; Complete Time: 20:46 3 07/31 17:35 Order name: NT PRO-BNP; Complete Time: 20:46 3 07/31 17:35 Order name: PT-INR; Complete Time: 20:46 07/31 17:35 Order name: Troponin HS; Complete Time: 20:46 3 07/31 17:35 Order name: TSH; Complete Time: 20:46 3 07/31 17:35 Order name: XRAY Chest (1 view); Complete Time: 18:43 3 07/31 17:35 Order name: EKG; Complete Time: 17:35 07/31 17:35 Order name: Cardiac monitoring; Complete Time: 18:05 07/31 17:35 Order name: EKG - Nurse/Tech; Complete Time: 18:05 07/31 17:35 Order name: IV Saline Lock; Complete Time: 20:06 07/31 17:35 Order name: Labs collected and sent; Complete Time: 19:24 3 07/31 17:35 Order name: O2 Per Protocol; Complete Time: 17:38 07/31 17:35 Order name: O2 Sat Monitoring; Complete Time: 17:38 07/31 19:13 Order name: Orthostatics; Complete Time: 19:43 sp3 Administered Medications: No medications were administered Disposition Summary: 07/31/23 21:04 Discharge Ordered Notes: Location: Home gb1 Problem: new gb1 Symptoms: have improved gb1 Condition: Stable gb1 Diagnosis - Weakness gb1 - Hypokalemia gb1 Followup: gb1 - With: Shoaib Woody MD - When: as previously scheduled - Reason: Discharge Instructions: - Discharge Summary Sheet gb1 - Potassium Content of Foods gb1 - Weakness, [id number] gb1 - Hypokalemia gb1 Forms: - Medication Reconciliation Form gb1 - Thank You Letter gb1 - Antibiotic Education gb1 - Prescription Opioid Use gb1 - Patient Portal Instructions gb1 - Leadership Thank You Letter gb1 Prescriptions: - Potassium Chloride 20 meq Oral Packet - take 1 packet ORAL route once daily 1 packet in 6 (six) ounces of water or gb1 juice; Take after meal; 30 packet; Refills: 0, Product Selection Permitted Signatures: Dispatcher [employer] EDJulián Ding MD MD sp3 Cate Michaud, ALTAGRACIA RN db Sarika West MD MD gb1
[2023-08-01 00:51] VITALS: TEMP 97.5
[2023-08-01 01:16] VITALS: BP 130/64; O2SAT 96
== END ==
LOC: ER 17:19
DX: R53.1 Weakness (principal); E87.6 Hypokalemia; R07.89 Other chest pain; E06.3 Autoimmune thyroiditis; Z88.5 Allergy status to narcotic agent; Z88.6 Allergy status to analgesic agent
CPT/HCPCS: 36415; 71045; 80048; 80076; 83735; 83880; 84443; 84484; 85025; 85610; 93005

== ENCOUNTER 2024-05-03 09:49 | Emergency (ER) | payer BC ==
[2024-05-03] MEDS ORDERED: NA CHLORIDE 0.9% 1,000 ML ONE (10:18)
[2024-05-03 10:29] LABS: Absolute Basophils 0.1 K/uL (0-0.5); Absolute Eosinophils 0.1 K/uL (0-0.5); Absolute Lymphocytes (CBC) 1.3 K/uL (0.7-4.9); Absolute Monocytes 0.5 K/uL (0.1-1.3); Absolute Neutrophil 4.9 K/uL (1.8-8.0); Basophils % 0.8 % (0-1.3); Eosinophils % 1.1 % (0-4.4); Hemoglobin 14.4 g/dL (12.0-15.0); Lymphocytes % 18.6 % (15.3-44.8); MCH 31.5 pg (27.0-35.0); MCHC 34.3 g/dL (32.0-36.0); MCV 91.8 fL (80-100); MPV 9.3 fL (7.6-11.3); Monocytes % 7.9 % (3.3-12.3); Neutrophils % 71.6 % (41.7-73.7); Nucleated Red Blood Cells % 0.1 % (0-0); Platelets 258 thou/uL (152-406); RBC Red Blood Cell Count 4.57 M/uL (3.86-4.86); Red Cell Distribution Width 14.4 % (12.1-15.2)
[2024-05-03 10:44] LABS: Albumin 3.3 g/dL (3.4-5.0); Anion Gap 10.7 mEq/L (5.0-15.0); Bilirubin Total 0.6 mg/dL (0.2-1.0); Globulin 3.3 g/dL (2.3-3.5); Potassium 3.7 mEq/L (3.5-5.1); Protein, Total 6.6 g/dL (6.4-8.2)
--- NOTE | 2024-05-03 11:47 | RAD REPORT ---
EXAMINATION: CT ABDOMEN AND PELVIS WITH CONTRAST CLINICAL INDICATION: Abdominal pain TECHNIQUE: CT abdomen and pelvis was performed, after the administration of 100 cc Isovue-300.. Sagit marcelo and coronal reconstructions were obtained. One or more of the following dose reduction techniques were used: Automated exposure control, adjustment of the mA and/or kV according to patien t size, and/or iterative reconstruction. Unless otherwise specified, incidental findings do not require dedicated imaging follow-up. [id number]. Oral contrast was given. COMPARISON: 2020 FINDINGS: 4 mm right upper lobe nodule. The liver, spleen, pancreas, adrenals and kidneys appear unremarkable There is no evidence of diverticulitis Normal appendix. Cholecystectomy. Hysterectomy. no adnexal mass. Moderate to large amount of stool present throughout colon. The wall of the distal stomach appears thickened. IMPRESSION: Moderate to large amount of stool present throughout colon. The wall of the distal stomach appears thickened. This probably is secondary to incomplete distention . Inflammation can also result in this appearance. 4 mm right upper lobe nodule Per Fleischner guidelines .low-risk patients: no routine follow-up required high-risk patients: optional CT at 12 months
[2024-05-03 11:59] LABS: Transitional Epithelial <5 /HPF (None Seen); Urine Bacteria None Seen /HPF (<20); Urine Bilirubin NEGATIVE (Negative); Urine Blood Negative (Negative); Urine Clarity Turbid (Clear); Urine Color Colorless (Yellow); Urine Culture Reflex Order NOT NEEDED; Urine Glucose NEGATIVE (Negative); Urine Ketones 1+ (Negative); Urine Microscopic Reflex YN ORDER UMIC; Urine Mucus Slight /HPF (None Seen); Urine Nitrite NEGATIVE (Negative); Urine Protein NEGATIVE (Negative); Urine RBC <5 /HPF (None Seen); Urine Urobilinogen Normal (Normal); Urine WBC <5 /HPF (<5); Urine pH 6.5 (5.0-7.0)
--- NOTE | 2024-05-03 12:34 | ER ---
Nurse's Notes [facility] Name: Sri Fink Age: 53 yrs Sex: Female : 1970 Arrival Date: 05/03/2024 Time: 09:49 Bed 5 Private MD: Diagnosis: Constipation Presentation: 05/03 09:58 Chief complaint: Patient states: 2 small BM's in 3 weeks. Coronavirus screen: Client ll1 denies travel out of the [place] in the last 14 days. At this time, the client does not indicate any symptoms associated with coronavirus-19. Ebola Screen: Patient denies travel to an Ebola-affected area in the 21 days before illness onset. Initial Sepsis Screen: Does the patient meet any 2 criteria? No. Patient's initial sepsis screen is negative. Does the patient have a suspected source of infection? No. Patient's initial sepsis screen is negative. Risk Assessment: Do you want to hurt yourself or someone else? Patient reports no desire to harm self or others. Onset of symptoms was April 10, 2024. 09:58 Method Of Arrival: Ambulatory ll1 09:58 Acuity: OCTAVIO 3 ll1 Triage Assessment: 09:59 General: Appears in no apparent distress. Behavior is calm, cooperative, appropriate ll1 for age. Pain: Denies pain. GI: Reports constipation. Historical: - Allergies: 09:52 Aspirin; mb9 09:52 Tylenol-Codeine #3; mb9 - Home Meds: 09:52 levothyroxine oral [Active]; Ibuprofen Oral [Active]; Hydrochlorothiazide Oral [Active];mb9 - PMHx: 09:52 allergies; Asthma; Hashimotos; Hypothyroidism; ovarian cancer; SVT; uterine cancer; mb9 uterine cancer; - PSHx: 09:52 Cholecystectomy; ear tubes; Plantar Fasciitis (Left foot); Tonsillectomy; Total mb9 abdominal hysterectomy; - Immunization history:: Adult Immunizations. - Infectious Disease History:: Denies. - Social history:: Smoking status: Patient denies any tobacco usage or history of. Screenin:24 [facility] ED Fall Risk Assessment (Adult) History of falling in the last 3 months, mb9 including since admission No falls in past 3 months (0 pts) Confusion or Disorientation No (0 pts) Intoxicated or Sedated No (0 pts) Impaired Gait No (0 pts) Mobility Assist Device Used No (0 pt) Altered Elimination No (0 pt) Score/Fall Risk Level 0 - 2 = Low Risk Oriented to surroundings, Maintained a safe environment, Educated pt \T\ family on fall prevention, incl call for assistance when getting out of bed. Abuse screen: Denies threats or abuse. Nutritional screening: On. Nutritional screening: No deficits noted. Tuberculosis screening: No symptoms or risk factors identified. Assessment: 10:23 General: Appears in no apparent distress. Behavior is calm, cooperative. Pain: Denies mb9 pain. Neuro: Mcclain Agitation-Sedation Scale (RASS): 0 - Alert and Calm Level of Consciousness is awake, alert, obeys commands, Oriented to person, place, time, situation, Appropriate for age. Cardiovascular: Patient's skin is warm and dry. Cardiovascular: Heart tones S1 S2 present. Respiratory: Airway is patent Respiratory effort is even, unlabored, Respiratory pattern is regular, symmetrical, Breath sounds are clear bilaterally. GI: Abdomen is flat, non-distended, Bowel sounds present X 4 quads. Abd is soft and non tender X 4 quads. Reports constipation. : No signs and/or symptoms were reported regarding the genitourinary system. EENT: No signs and/or symptoms were reported regarding the EENT system. Derm: Skin is pink, warm \T\ dry. Musculoskeletal: Range of motion: intact in all extremities. 10:51 Reassessment: CT notified of pt finishing oral contrast. mb9 11:26 Reassessment: No changes from previously documented assessment. Patient and/or family mb9 updated on plan of care and expected duration. Pain level reassessed. Patient is alert, oriented x 3, equal unlabored respirations, skin warm/dry/pink. 12:46 Reassessment: Patient appears in no apparent distress at this time. No changes from mb9 previously documented assessment. Patient and/or family updated on plan of care and expected duration. Pain level reassessed. Patient is alert, oriented x 3, equal unlabored respirations, skin warm/dry/pink. Vital Signs: 09:58 BP 144 / 91; Pulse 72; Resp 17; Temp 97.6; Pulse Ox 98% ; Weight 58.06 kg; Height 5 ft. ll1 1 in. ; Pain 0/10; 12:08 BP 136 / 72; Pulse 74; Resp 16; Pulse Ox 100% on R/A; mb9 09:58 Body Mass Index 24.19 (58.06 kg, 154.94 cm) ll1 09:58 Pain Scale: Adult ll1 ED Course: 09:51 Patient arrived in ED. ra3 09:52 Yun Grider, RN is Primary Nurse. mb9 09:52 Arm band placed on. mb9 09:53 [facility]arm[facility] Rivera [facility]C [facility]. kb 09:53 Reilly Small MD is Attending Physician. kb 09:59 Triage completed. ll1 10:23 CBC with Diff Sent. mb9 10:23 CMP Sent. mb9 10:23 Lipase Sent. mb9 10:23 Initial lab(s) drawn, by me, sent to lab. Inserted saline lock: 20 gauge in left mb9 antecubital area, using aseptic technique. Blood collected. Flushed with 10 mL NS. 10:25 Placed in gown. Bed in low position. Call light in reach. Side rails up X 1. Provided mb9 Education on: press call light if needing anything. Client placed on continuous cardiac and pulse oximetry monitoring. NIBP monitoring applied. 10:25 No provider procedures requiring assistance completed. mb9 11:32 CT Abd/Pelvis - PO and IV Contrast In Process Unspecified. EDMS 12:46 IV discontinued, intact, bleeding controlled, No redness/swelling at site. Pressure mb9 dressing applied. Administered Medications: 10:23 Drug: NS 0.9% IV 1000 ml IV at 1 bolus Per protocol; to be given as a bolus over 60 mb9 minutes Route: IV; Rate: 1 bolus; Site: left antecubital; 12:09 Follow up: Response: No adverse reaction; IV Status: Completed infusion mb9 12:46 Drug: Lactulose PO 10 grams 15 ml PO once Volume: 15 ml; Route: PO; mb9 12:50 Follow up: Response: No adverse reaction mb9 Medication: 10:25 VIS not applicable for this client. mb9 Outcome: 12:34 Discharge ordered by . kb 12:46 Discharged to home ambulatory, with family, mb9 12:46 Condition: stable 12:46 Discharge instructions given to patient, Instructed on discharge instructions, follow up and referral plans. Demonstrated understanding of instructions, follow-up care, 12:51 Patient left the ED. mb9 Signatures: Dispatcher [employer] EDCharmaine Willis, SUSHIL SWAIN-Gabriela Moya RN RN ll1 Yun Grider RN RN mb9 Anastasia Camilo ra3
--- NOTE | 2024-05-03 12:34 | EDPHYS ---
Physician Documentation [facility] Name: Sri Fink Age: 53 yrs Sex: Female : 1970 Arrival Date: 05/03/2024 Time: 09:49 Bed 5 Private MD: ED Physician Reilly Small HPI: 05/03 12:40 This 53 yrs old Female presents to ER via Ambulatory with complaints of No bowel kb movement [id number]. 12:40 Pt is a 53 year old female who presents for constipation. States she hasn't had a kb decent bowel movement in 3 weeks. Reports very small amount 10 days ago. Denies abd pain, n/v/, fever. States she believes something must be wrong since she hasn't gone. States Dr Diaz diagnosed her with chronic constipation and told her not to take so many laxatives . Historical: - Allergies: 09:52 Aspirin; mb9 09:52 Tylenol-Codeine #3; mb9 - Home Meds: 09:52 levothyroxine oral [Active]; Ibuprofen Oral [Active]; Hydrochlorothiazide Oral [Active];mb9 - PMHx: 09:52 allergies; Asthma; Hashimotos; Hypothyroidism; ovarian cancer; SVT; uterine cancer; mb9 uterine cancer; - PSHx: 09:52 Cholecystectomy; ear tubes; Plantar Fasciitis (Left foot); Tonsillectomy; Total mb9 abdominal hysterectomy; - Immunization history:: Adult Immunizations. - Infectious Disease History:: Denies. - Social history:: Smoking status: Patient denies any tobacco usage or history of. ROS: 12:39 Constitutional: As per HPI kb Exam: 12:39 Constitutional: This is a well developed, well nourished patient who is awake, alert, kb and in no acute distress. Head/Face: Normocephalic, atraumatic. ENT: Moist Mucous membranes Cardiovascular: Regular rate Respiratory: Respirations even and unlabored. No increased work of breathing. Talking in full sentences Abdomen/GI: Soft, non-tender. No distention Skin: Warm, dry with normal turgor. Normal color. MS/ Extremity: Pulses equal, no cyanosis. Neurovascular intact. Full, normal range of motion. Neuro: Awake and alert, GCS 15, oriented to person, place, time, and situation. Moves all extremities. Normal gait. Vital Signs: 09:58 BP 144 / 91; Pulse 72; Resp 17; Temp 97.6; Pulse Ox 98% ; Weight 58.06 kg; Height 5 ft. ll1 1 in. ; Pain 0/10; 12:08 BP 136 / 72; Pulse 74; Resp 16; Pulse Ox 100% on R/A; mb9 09:58 Body Mass Index 24.19 (58.06 kg, 154.94 cm) ll1 09:58 Pain Scale: Adult ll1 MDM: 09:53 Patient medically screened. kb 12:39 Differential diagnosis: constipation, bowel obstruction. Data reviewed: vital signs, kb nurses notes. Historians other than the Patient: Spouse/Significant Other: . Counseling: I had a detailed discussion with the patient and/or guardian regarding the historical points, exam findings, and any diagnostic results supporting the discharge/admit diagnosis, lab results, radiology results, the need for outpatient follow up, a family practitioner, to return to the emergency department if symptoms worsen or persist or if there are any questions or concerns that arise at home. 12:40 ED course: Pt has an appt with Dr Diaz on 05/12/24 and will discuss treatment for kb chronic constipation. 05/03 10:03 Order name: CBC with Diff; Complete Time: 11:00 kb 05/03 10:03 Order name: CMP; Complete Time: 11:00 kb 05/03 10:03 Order name: Lipase; Complete Time: 11:00 kb 05/03 10:03 Order name: Urinalysis w/ reflexes; Complete Time: 12:00 kb 05/03 10:03 Order name: CT Abd/Pelvis - PO and IV Contrast; Complete Time: 11:48 kb 05/03 10:03 Order name: IV Saline Lock; Complete Time: 10:23 kb 05/03 10:03 Order name: Labs collected and sent; Complete Time: 10:23 kb Administered Medications: 10:23 Drug: NS 0.9% IV 1000 ml IV at 1 bolus Per protocol; to be given as a bolus over 60 mb9 minutes Route: IV; Rate: 1 bolus; Site: left antecubital; 12:09 Follow up: Response: No adverse reaction; IV Status: Completed infusion mb9 12:46 Drug: Lactulose PO 10 grams 15 ml PO once Volume: 15 ml; Route: PO; mb9 12:50 Follow up: Response: No adverse reaction mb9 Disposition Summary: 05/03/24 12:34 Discharge Ordered Notes: Location: Home kb Condition: Stable kb Diagnosis - Constipation kb Followup: kb - With: Emergency Department - When: As needed - Reason: Worsening of condition Followup: kb - With: Private Physician - When: 2 - 3 days - Reason: Recheck today's complaints, Continuance of care, Re-evaluation by your physician Discharge Instructions: - Discharge Summary Sheet kb - Constipation, Adult, [id number] kb Forms: - Medication Reconciliation Form kb - Antibiotic Education kb - Prescription Opioid Use kb - Patient Portal Instructions kb - Leadership Thank You Letter kb Addendum: 05/05/2024 17:54 I was immediately available for consultation during this patient's visit. I did not e c2 personally see the patient or discuss the patient with the SHRUTHI. . Signatures: Dispatcher [employer] Charmaine Madison, [employer]-Gabriela Moya RN RN ll1 Yun Grider RN RN mb9 Reilly Small MD MD ec2
[2024-05-03] MEDS ORDERED: LACTULOSE 20 GM/30 ML UCUP ONE (12:41)
[2024-05-03 13:04] VITALS: TEMP 97.6
[2024-05-03 13:07] VITALS: BP 136/72; O2SAT 100
== END 2024-05-03 12:51 | disposition home or self-care (01) ==
LOC: ER 09:49
DX: K59.00 Constipation, unspecified (principal)
CPT/HCPCS: 85025; 81001; 36415; 83690; 80053; 74177; Q9967; J7030

== ENCOUNTER 2024-06-13 06:32 | Emergency (ER) | payer BC ==
[2024-06-13] MEDS ORDERED: NA CHLORIDE 0.9% 1,000 ML ONE (07:18)
--- NOTE | 2024-06-13 09:39 | ER ---
Nurse's Notes [facility] Name: Sri Fink Age: 53 yrs Sex: Female : 1970 Arrival Date: 06/13/2024 Time: 06:32 Bed 20 Private MD: Diagnosis: Constipation, unspecified Presentation: 06/13 06:59 Chief complaint: Patient states: "I THINK I AM ENCAPSULATED WITH POOP. I CAN FEEL IT AT [facility] THE OPENING BUT THERE IS JUST A BUNCH OF SKIN AROUND IT. I HAVE HAD CTS AND THEY SAY THAT IT IS NOT AN EMERGENCY BUT I REALLY THINK I NEED EMERGENCY SURGERY.". Coronavirus screen: Client denies travel out of the [place] in the last 14 days. At this time, the client does not indicate any symptoms associated with coronavirus-19. Ebola Screen: Patient negative for fever greater than or equal to 101.5 degrees Fahrenheit, and additional compatible Ebola Virus Disease symptoms Patient denies exposure to infectious person. Patient denies travel to an Ebola-affected area in the 21 days before illness onset. No symptoms or risks identified at this time. Initial Sepsis Screen: Does the patient meet any 2 criteria? No. Patient's initial sepsis screen is negative. Does the patient have a suspected source of infection? No. Patient's initial sepsis screen is negative. Risk Assessment: Do you want to hurt yourself or someone else? Patient reports no desire to harm self or others. Onset of symptoms is unknown. 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 - Infectious Disease History:: Denies. - Social history:: Smoking status: Patient denies any tobacco usage or history of. Screenin:52 [facility] ED Fall Risk Assessment (Adult) History of falling in the last 3 months, rs5 including since admission No falls in past 3 months (0 pts) Confusion or Disorientation No (0 pts) Intoxicated or Sedated No (0 pts) Impaired Gait No (0 pts) Mobility Assist Device Used No (0 pt) Altered Elimination No (0 pt) Score/Fall Risk Level 0 - 2 = Low Risk Oriented to surroundings, Maintained a safe environment. 06:52 Abuse screen: Denies threats or abuse. Nutritional screening: No deficits noted. rs5 Tuberculosis screening: No symptoms or risk factors identified. Assessment: 06:55 General: Appears in no apparent distress. uncomfortable, Behavior is calm, cooperative. rs5 Pain: Complains of pain in rectum Pain currently is 3 out of 10 on a pain scale. Quality of pain is described as aching. Neuro: Level of Consciousness is awake, alert, obeys commands, Oriented to person, place, time, situation. Cardiovascular: Patient's skin is warm and dry. Respiratory: Airway is patent Respiratory effort is even, unlabored, Respiratory pattern is regular, symmetrical. GI: Abdomen is round non-distended, Bowel sounds present X 4 quads. Abd is soft and non tender X 4 quads. : No signs and/or symptoms were reported regarding the genitourinary system. EENT: No signs and/or symptoms were reported regarding the EENT system. Derm: Skin is intact, Skin is pink, warm \\T\\ dry. Musculoskeletal: Range of motion: intact in all extremities. 08:01 Reassessment: Patient and/or family updated on plan of care and expected duration. Pain rs5 level reassessed. Patient is alert, oriented x 3, equal unlabored respirations, skin warm/dry/pink. awaiting doctors orders . 08:44 Reassessment: Patient and/or family updated on plan of care and expected duration. Pain rs5 level reassessed. Patient is alert, oriented x 3, equal unlabored respirations, skin warm/dry/pink. provider notified pt's fluids are finished, awaiting doctors orders . 09:33 Reassessment: Patient and/or family updated on plan of care and expected duration. Pain rs5 level reassessed. Patient is alert, oriented x 3, equal unlabored respirations, skin warm/dry/pink. to bedside to assist provider with rectal exam, pt tolerated procedure well . Vital Signs: 06:59 BP 129 / 81; Pulse 69; Resp 14; Temp 98.6; Pulse Ox 99% ; Weight 50.8 kg; Height 5 ft. vc1 1 in. ; 09:35 BP 125 / 79; Pulse 71; Resp 17; Pulse Ox 99% on R/A; rs5 06:59 Body Mass Index 21.16 (50.80 kg, 154.94 cm) vc1 ED Course: 06:36 Patient arrived in ED. gm2 06:50 Inserted saline lock: 20 gauge in left antecubital area, using aseptic technique. rs5 06:52 Patient has correct armband on for positive identification. Placed in gown. Bed in low rs5 position. Call light in reach. Side rails up X2. 06:52 No provider procedures requiring assistance completed. rs5 07:00 Booker Solis RN is Primary Nurse. rs5 07:02 Triage completed. vc1 07:02 Sharif Garcia MD is Attending Physician. bo1 07:03 Arm band placed on right wrist. vc1 09:30 Provided Education on: discharge instructions . rs5 09:37 Jerrell Diaz MD is Referral Physician. bo1 09:40 IV discontinued, intact, bleeding controlled, No redness/swelling at site. Pressure rs5 dressing applied. Administered Medications: 07:31 Drug: NS 0.9% IV 1000 ml IV at 1 bolus Per protocol; to be given as a bolus over 60 rs5 minutes Route: IV; Rate: 1 bolus; Site: left antecubital; 08:35 Follow up: Response: No adverse reaction; IV Status: Completed infusion; IV Intake: rs5 1000ml Medication: 07:33 VIS not applicable for this client. rs5 Intake: 08:35 IV: 1000ml; Total: 1000ml. rs5 Outcome: 09:39 Discharge ordered by . bo1 09:40 Discharged to home ambulatory, rs5 09:40 Condition: stable 09:40 Discharge instructions given to patient, family, Instructed on discharge instructions, follow up and referral plans. Demonstrated understanding of instructions, follow-up care, 09:47 Patient left the ED. rs5 Signatures: Radha Ruth RN RN vc1 Booker Solis RN RN rs5 Kianna Nicole gm2 Sharif Garcia MD MD bo1 Corrections: (The following items were deleted from the chart) 12:06 09:33 Reassessment: to bedside to assist provider with rectal exam . rs5 rs5
--- NOTE | 2024-06-13 09:39 | EDPHYS ---
Physician Documentation [facility] Name: Sri Fink Age: 53 yrs Sex: Female : 1970 Arrival Date: 06/13/2024 Time: 06:32 Bed 20 Private MD: ED Physician Sharif Garcia HPI: 06/13 07:12 This 53 yrs old Female presents to ER via Ambulatory with complaints of Constipation, bo1 Pain. 07:12 Pt reports last BM was 1 week ago. Feels that her rectum is closing off. She's had this bo1 problem recently evaluated with CT and MRI. Told nothing is wrong. She's requesting for a rectal exam.. Onset: The symptoms/episode began/occurred gradually, 1 week(s) ago. The patient has experienced similar episodes in the past. Been to [facility] and imaging done. Pt relates that she doesn't think she needs further imaging.. 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 - Infectious Disease History:: Denies. - Social history:: Smoking status: Patient denies any tobacco usage or history of. ROS: 07:46 Constitutional: Negative for fever, chills, and weight loss. Poor oral intake due to bo1 the "constipation." 07:46 Constitutional: Positive for poor PO intake, Negative for fever, 07:46 Cardiovascular: Negative for chest pain, 07:46 Respiratory: Negative for shortness of breath, 07:46 Abdomen/GI: Positive for abdominal pain, constipation, "rectal fullness", 07:46 Skin: Negative for rash, 07:46 All other systems are negative, Exam: 07:17 Constitutional: This is a well developed, well nourished patient who is awake, alert, bo1 and moderately depressed state. 07:17 Constitutional: The patient appears alert, awake, non-toxic, Depressed state, no HI or SI 07:17 Head/face: Exam is negative for acute changes, 07:17 Chest/axilla: Exam negative for acute changes, 07:17 Cardiovascular: Rate: normal, Rhythm: regular, Pulses: no pulse deficits are appreciated, 07:17 Respiratory: the patient does not display signs of respiratory distress, Breath sounds: are clear throughout, 07:17 Abdomen/GI: Inspection: abdomen appears normal, Scaphoid and non distended, Bowel sounds: diminished, Palpation: soft, nontender, rebound tenderness, is not appreciated, 07:17 Musculoskeletal/extremity: Extremities: all appear grossly normal, with no appreciated pain with palpation, 07:17 Skin: Appearance: Color: normal in color, Temperature: normal temperature, Moisture: Tenting of the skin at the UE - bilaterally, Vital Signs: 06:59 BP 129 / 81; Pulse 69; Resp 14; Temp 98.6; Pulse Ox 99% ; Weight 50.8 kg; Height 5 ft. vc1 1 in. ; 09:35 BP 125 / 79; Pulse 71; Resp 17; Pulse Ox 99% on R/A; rs5 06:59 Body Mass Index 21.16 (50.80 kg, 154.94 cm) vc1 Procedures: 09:34 Performed Rectal exam. Nurse present for chaperoned exam. Pt in left decubitus bo1 position. Finger inserted. Normal rectal sphincter tone. No blood or masses. Non-thrombosed external hemorrhoid noted. MDM: 06:55 Medical Screening Exam initiated sp3 09:40 Differential Diagnosis Chronic constipation, hemorrhoids, obstipation. Obstruction. ED bo1 course: No evidence of obstruction or rectal mass or stool on exam. No qualification for acute intervention. Pt reports she's been to a colo-rectal specialist before. "He did not help.". 09:42 Data reviewed: vital signs, old medical records. bo1 06/13 07:15 Order name: IV Saline Lock; Complete Time: 07:31 bo1 Administered Medications: 07:31 Drug: NS 0.9% IV 1000 ml IV at 1 bolus Per protocol; to be given as a bolus over 60 rs5 minutes Route: IV; Rate: 1 bolus; Site: left antecubital; 08:35 Follow up: Response: No adverse reaction; IV Status: Completed infusion; IV Intake: rs5 1000ml Disposition Summary: 06/13/24 09:39 Discharge Ordered Notes: Location: Home bo1 Problem: chronic bo1 Symptoms: are unchanged bo1 Condition: Stable bo1 Diagnosis - Constipation, unspecified bo1 Followup: bo1 - With: Private Physician - When: As needed - Reason: Recheck today's complaints, Continuance of care Followup: bo1 - With: Jerrell Diaz MD - When: As needed - Reason: Recheck today's complaints, Continuance of care Discharge Instructions: - Discharge Summary Sheet bo1 - Chronic Constipation bo1 Forms: - Medication Reconciliation Form bo1 - Antibiotic Education bo1 - Prescription Opioid Use bo1 - Patient Portal Instructions bo1 - Leadership Thank You Letter bo1 Signatures: Julián Britton MD MD sp3 Radha Ruth RN RN vc1 Booker Solis RN RN rs5 Sharif Garcia MD MD bo1
[2024-06-13 09:51] VITALS: BP 129/81; TEMP 98.6; O2SAT 99
== END 2024-06-13 09:47 | disposition home or self-care (01) ==
LOC: ER 06:32
DX: K59.00 Constipation, unspecified (principal)
CPT/HCPCS: J7030